=== PATIENT | female | born 1945 | race Caucasian/White ===

== ENCOUNTER 2023-12-20 14:00 | Outpatient (AMB) | payer MEDICARE, SELFPAY ==
[2023-12-20 14:08] VITALS: BP 138/60; PULSE 101; O2SAT 96; BMI 38.2
--- NOTE | 2023-12-20 14:08 | A.OFFVIS_ITS ---
Vital Signs 12/20/23 14:08 Height 5 ft 4 in Weight 222 lb 7.143 oz BMI 38.2 BP 138/60 Blood Pressure Location Rt brachial Position Sitting Pulse 101 H Pulse Source Pulse Oximeter Pulse Oximetry (%) 96 Oxygen Delivery Method Room Air Intake Visit Reasons: PSA Intake Note: New patient, externally referred by PCP at [facility], presents to office today for PsA. PCP Samira Thadisgala Joints affected: Hand,wrist and fingers are worse. She c/o of bilateral shoulder, knee and foot pain. Pain began approx: Patient has had this for many years but it has gotten worse over the last 2 years. Has tried:Orenzia infusions. 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 Baum 78yoF presents for transfer of care from [place]. Per patient, she was diagnosed with PsA with PsO about 10 years, and was being treated with Orencia infusion. --psoriasis arthritis and PsO --last infusion Apr 28, 2023 --right elbow small scaly patch --hands mild swelling and moderate tenderness to thumbs and medial wrists. soreness to DIPs, achilles and knees --no GI or Uveiitis --pending bilateral knee surgeries after A1C controlled. Returns in January to reassess. [facility] Medical History (Updated 12/20/23 @ 15:39 by Alana Craven [facility]) Psoriasis Screening examination for infectious disease Long-term use of immunosuppressant medication Lymph node abscess Hx of colonic polyp Post-menopausal Psoriatic arthritis Mixed hyperlipidemia Essential (primary) hypertension Type 2 diabetes mellitus with insulin therapy Surgical History (Updated 12/20/23 @ 14:24 by GATITO Everett) H/O: knee surgery History of appendectomy History of tonsillectomy History of partial hysterectomy Family History (Updated 12/20/23 @ 14:25 by GATITO Everett) Mother Cancer Father Abdominal aneurysm Social History (Updated 12/20/23 @ 14:26 by GATITO Everett) Alcohol intake: never Patient Tobacco Use Status: Never used Tobacco Review of Systems Const All systems reviewed & are unremarkable except as noted in HPI and below Physical Exam Vital Signs: Last Vital Signs Pulse 101 H 12/20/23 14:08 BP 138/60 12/20/23 14:08 Pulse Ox 96 12/20/23 14:08 Oxygen Delivery Method Room Air 12/20/23 14:08 BMI result Body Mass Index 38.2 APPEARANCE: Patient in no acute distress EYES no redness, normal EARS:? External ear normal. NOSE/SINUS:? Airflow through both nares, no nasal discharge, no bleeding THROAT:? Oral mucosa moist, no ulcerations NECK:? No thyromegaly or masses, no adenopathy, trachea midline. HEART:? Regular rhythm, S1-S2 heard, no murmurs, rubs or gallops. LUNG:? Clear to percussion and auscultation EXTREMITIES:? No edema, no calf tenderness, normal peripheral pulses. NEURO:? Oriented and alert x3.? No focal weakness.? Reflexes symmetric.? Gait normal. SKIN:? small scally patch right elbow, dry mild scaling to left ear, no scalp lesion. No objective signs of Raynaud's phenomenon. JOINT EXAM: Cervical Spine:.? Full range of motion without pain; no tenderness. Thoracic Spine:.? No scoliosis.? No tenderness on palpation. Lumbar Spine:.? Alignment normal.? Full range of motion without pain, no tenderness. Chest Wall:.? No tenderness, swelling, increased warmth or erythema. Hands:.? Decreased range of motion with tenderness and trace swelling to bila teral tumbs, 2nd and 3rd MCP no increased warmth or erythema. Able to curl fingers but decreased plumber assistant strength. Wrists:.?Range of motion with discomfort, with tenderness trace swelling but no increased warmth or erythema. Elbows:. Normal pain-free range of motion with tenderness but no swelling, increased warmth or erythema. soreness per patient Shoulders:.?? Reduced range of motion, lift hands above head with wincing and hesitation, mild weakness but no swelling, increased warmth or erythema. Hip bursa:.? mild to moderate tenderness; slow to rise from seated position Knees:.?? Normal range of motion with tenderness but no swelling, increased warmth or erythema.? There is no effusion or crepitation Ankles:.? Normal pain-free range of motion without tenderness, swelling, increased warmth or erythema. mild tenderness to achilles on palpation Feet:.? Normal pain-free range of motion without tenderness, swelling, increased warmth or erythema. Tender points:? No tenderness to digital palpation at the occiput, trapezius, second rib, lateral epicondyle, knees, greater trochanter and gluteal area bilaterally. ? Assessment & Plan Assessment & Plan (1) Psoriatic arthritis: Code(s): L40.50 - Arthropathic psoriasis, unspecified Category: Medical (2) Long-term use of immunosuppressant medication: Code(s): Z79.60 - MCC (current) use of unspecified immunomodulators and immunosuppressants Category: Medical (3) Psoriasis: Code(s): L40.9 - Psoriasis, unspecified Category: Medical Plan PsO/PsA: Patient with self-reported history of PsA here for management. She recently moved from [place] and had her last infusion Apr 2023 due to delayed referrals and Rheumatology unavailability. Per patient she was being treated with Orencia 750mg monthly infusions. However, she gave me note that she said she received from her former Rheum with IL-23 inscribed on the sticky note. I did put in the PA for Orencia. We will verify after receiving her records from [place]. She reports being very sore, with tenderness to joints on PE, since she has been without the medication for over 6 months. #Detention use: Patient knows to seek medical attention for infections and fevers. She denies known side effects on her medication for the PsA. Obtain labs for baseline f/u 2 months Spent 35 minutes reviewing history, evaluating patient and documenting. Orders: Orders C Reactive Protein Today L40.50 - Arthropathic psoriasis, unspecified, Z79.60 - termite treater helper (current) use of unspecified immunomodulators and immunosuppressants Complete Blood Count Auto Diff Today L40.50 - Arthropathic psoriasis, unspecified, Z79.60 - MCC (current) use of unspecified immunomodulators and immunosuppressants T Spot TB Today Z11.9 - Encounter for screening for infectious and parasitic diseases, unspecified Uric Acid Today L40.50 - Arthropathic psoriasis, unspecified, Z79.60 - termite treater helper (current) use of unspecified immunomodulators and immunosuppressants Erythrocyte Sedimentation Rate Today L40.50 - Arthropathic psoriasis, unspecified, Z79.60 - termite treater helper (current) use of unspecified immunomodulators and immunosuppressants Comprehensive Met. Panel Today L40.50 - Arthropathic psoriasis, unspecified, Z79.60 - termite treater helper (current) use of unspecified immunomodulators and immunosuppressants Immunoglobulins,IgG IgA IgM Today L40.50 - Arthropathic psoriasis, unspecified, Z79.60 - termite treater helper (current) use of unspecified immunomodulators and immunosuppressants Immunofixation Pnl, Serum Today L40.50 - Arthropathic psoriasis, unspecified, Z79.60 - termite treater helper (current) use of unspecified immunomodulators and immunosuppressants Hepatitis A,B,C Profile Today Z11.9 - Encounter for screening for infectious and parasitic diseases, unspecified, Z79.60 - MCC (current) use of uns pecified immunomodulators and immunosuppressants Protein Electrophoresis, Serum Today L40.50 - Arthropathic psoriasis, unspecified, Z79.60 - termite treater helper (current) use of unspecified immunomodulators and immunosuppressants HLA B27 Today L40.50 - Arthropathic psoriasis, unspecified, Z79.60 - MCC (current) use of unspecified immunomodulators and immunosuppressants Coding Level of Care Code New Pt Level 4 (41622) Diagnoses Psoriatic arthritis L40.50 Long-term use of immunosuppressant medication Z79.60 Psoriasis L40.9
== END 2023-12-20 15:14 | disposition home or self-care (01) ==
PROVIDERS: PCP Family Medicine; Visit Provider Nurse Practitioner Family
DX: L40.50 Arthropathic psoriasis, unspecified (principal); Z79.60 Long term (current) use of unspecified immunomodulators and immunosuppressants; L40.9 Psoriasis, unspecified
CPT/HCPCS: 99204

== ENCOUNTER → 2023-12-20 14:00 | Outpatient (BNVA) | payer MEDICARE, SELFPAY | PROVIDERS: PCP Family Medicine; Visit Provider Nurse Practitioner Family | DX: L40.50 Arthropathic psoriasis, unspecified (principal); L40.9 Psoriasis, unspecified; Z79.60 Long term (current) use of unspecified immunomodulators and immunosuppressants | CPT/HCPCS: 99202 ==

== ENCOUNTER 2024-03-01 14:19 | Outpatient (AMB) | payer MEDICARE, SELFPAY ==
[2024-03-01 14:31] VITALS: BP 128/72; PULSE 78; O2SAT 97
--- NOTE | 2024-03-01 14:31 | A.OFFVIS_ITS ---
Vital Signs 03/01/24 14:31 Weight 227 lb 4.745 oz BP 128/72 Blood Pressure Location Lt brachial Position Sitting Pulse 78 Pulse Source Pulse Oximeter Pulse Oximetry (%) 97 Oxygen Delivery Method Room Air Intake Visit Reasons: PSA Intake Note: Patient presents today for follow up on PSA, last seen on 12/20/23 by Alnaa Craven. Allergies codeine Adverse Reaction (Intermediate, Verified 03/01/24 14:35) Constipation Medication List - Last Reconciled 03/01/24 by Mannie Bah MD amlodipine 5 mg PO DAILY aspirin (Adult Aspirin Regimen) 81 mg PO DAILY atorvastatin 10 mg PO DAILY cholecalciferol (vitamin D3) (Vitamin D3) 25 mcg PO DAILY empagliflozin (Jardiance) 10 mg PO DAILY hydrochlorothiazide 25 mg PO DAILY insulin glargine (Lantus Solostar U-100 Insulin) 20 units subcut BID levothyroxine 100 mcg PO DAILY losartan 100 mg PO DAILY metformin 1,000 mg PO BID HPI Comments Details: 79-year-old female with psoriasis and psoriatic arthritis returns for follow-up. She finally received her Orencia infusions. She received 2 infusions so far. The 2nd infusion was today. She states that she feels about the same overall. Has not felt any improvement yet. She continues to have diffuse joint pains. Especially in her wrists and fingers, more on the right. She has bilateral knee osteoarthritis, she was told it was [id number] and she is scheduled for right knee replacement April 23. [facility] Medical History (Updated 03/01/24 @ 15:08 by Mannie Bah MD) Psoriasis Long-term use of immunosuppressant medication Lymph node abscess Hx of colonic polyp Post-menopausal Psoriatic arthritis Mixed hyperlipidemia Essential (primary) hypertension Type 2 diabetes mellitus with insulin therapy Surgical History H/O: knee surgery History of appendectomy History of tonsillectomy History of partial hysterectomy Family History Mother Cancer Father Abdominal aneurysm Social History Alcohol intake: never Patient Tobacco Use Status: Never used Tobacco Review of Systems [facility] Reports arthralgias, Reports joint swelling and Reports stiffness Skin/Breast Reports rash Physical Exam Vital Signs: Last Vital Signs Pulse 78 03/01/24 14:31 BP 128/72 03/01/24 14:31 Pulse Ox 97 03/01/24 14:31 Oxygen Delivery Method Room Air 03/01/24 14:31 Const General: cooperative, healthy appearing and comfortable Nutritional Appearance: obese morbidly obese Orientation/consciousness: patient oriented x3 Limitations: no limitations HEENT Head: Yes normocephalic and Yes atraumatic Mouth: moist mucous membranes Resp Effort & Inspection: normal respiratory effort and able to speak in complete s entences Auscultation: clear to auscultation bilaterally Skin General skin exam: no rashes or lesions noted Neuro General: patient oriented x3 Extrem Other: Bilateral wrist swelling, more prominent on the right Bilateral puffy fingers Bilateral wrist pain with flexion-extension 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 She received 2 infusions of Orencia so far. She gets 750 mg every 28 days. She continues to have active synovitis on exam. I think patient is getting a suboptimal dose. She weighs more than 100 kg and should get 1000 mg every 4 weeks Increase Orencia dose. 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 Patient to skip the March dose for the Orencia. Her last Orencia dose before surgery is today. She has a postop follow-up with her surgeon 05/09. If wound is healing reasonably well with no signs of infection on postop check advised patient to schedule her Orencia infusion as soon as she can Plan I spent 27 minutes reviewing patient's chart, evaluating patient, ordering diagn ostic workup, counseling patient and documenting in the chart Coding Level of Care Code Est Pt Level 4 (87424) Diagnoses Psoriatic arthritis L40.50 Long-term use of immunosuppressant medication Z79.60 Bilateral primary osteoarthritis of knee M17.0
== END 2024-03-01 15:06 | disposition home or self-care (01) ==
PROVIDERS: PCP Family Medicine; Visit Provider Student in an Organized Health Care Education/Training Program
DX: L40.50 Arthropathic psoriasis, unspecified (principal); Z79.60 Long term (current) use of unspecified immunomodulators and immunosuppressants; M17.0 Bilateral primary osteoarthritis of knee
CPT/HCPCS: 99214

== ENCOUNTER → 2024-03-01 14:19 | Outpatient (BNVA) | payer MEDICARE, SELFPAY | PROVIDERS: PCP Family Medicine; Visit Provider Student in an Organized Health Care Education/Training Program | DX: L40.50 Arthropathic psoriasis, unspecified (principal); M17.0 Bilateral primary osteoarthritis of knee; Z79.60 Long term (current) use of unspecified immunomodulators and immunosuppressants | CPT/HCPCS: 99212 ==

== ENCOUNTER 2024-06-20 10:17 | Outpatient (AMB) | payer MEDICARE, SELFPAY ==
--- NOTE | 2024-06-20 10:25 | MHC.OFFVIS ---
Vital Signs 06/20/24 10:32 Height 5 ft 4 in Weight 226 lb 3.108 oz BMI 38.8 BP 100/50 L Blood Pressure Location Rt brachial Position Sitting Respiration 16 Pulse 86 Pulse Source Pulse Oximeter Pulse Oximetry (%) 95 Oxygen Delivery Method Room Air Intake Visit Reasons: PsA Intake Note: Patient presents for PsA. Allergies codeine Adverse Reaction (Intermediate, Verified 06/20/24 10:30) Constipation Medication List - Last Reconciled 06/20/24 by Mannie Bah MD amlodipine 5 mg PO DAILY aspirin (Adult Aspirin Regimen) 81 mg PO DAILY atorvastatin 10 mg PO DAILY cholecalciferol (vitamin D3) (Vitamin D3) 25 mcg PO DAILY empagliflozin (Jardiance) 10 mg PO DAILY hydrochlorothiazide 25 mg PO DAILY insulin glargine (Lantus Solostar U-100 Insulin) 20 units subcut BID levothyroxine 100 mcg PO DAILY losartan 100 mg PO DAILY metformin 1,000 mg PO BID HPI Comments Details: 79-year-old female with psoriasis and psoriatic arthritis returns for follow-up. She remains on Orencia infusions. We increase her Orencia dose to 1000 mg. She received the increased of Orencia once, this was earlier this month. She has not noticed much of a difference. She is s/p right knee replacement. She has recovered well so far. Still working with physical therapy. She states that she continues to have arthritic pains in different joints including her hands. Her hands are weak, gets stiff and intermittently swell up. COUNTS INCLUDE 234 BEDS AT THE [facility] Medical History Psoriasis Long-term use of immunosuppressant medication Lymph node abscess Hx of colonic polyp Post-menopausal Psoriatic arthritis Mixed hyperlipidemia Essential (primary) hypertension Type 2 diabetes mellitus with insulin therapy Surgical History H/O: knee surgery History of appendectomy History of tonsillectomy History of partial hysterectomy Family History Mother Cancer Father Abdominal aneurysm Social History Alcohol intake: never Patient Tobacco Use Status: Never used Tobacco Review of Systems [facility] Reports arthralgias, Reports joint swelling and Reports stiffness Physical Exam Vital Signs: Last Vital Signs Pulse 86 12/18/24 10:32 Resp 16 06/20/24 10:32 BP 100/50 L 06/20/24 10:32 Pulse Ox 95 06/20/24 10:32 Oxygen Delivery Method Room Air 06/20/24 10:32 BMI result Body Mass Index 38.8 Const General: cooperative, healthy appearing and comfortable Nutritional Appearance: obese morbidly obese Orientation/consciousness: patient oriented x3 Limitations: no limitations HEENT Head: Yes normocephalic and Yes atraumatic Mouth: moist mucous membranes Resp Effort & Inspection: normal respiratory effort and able to speak in complete sentences Auscultation: clear to auscultation bilaterally Skin General skin exam: no rashes or lesions noted Neuro General: patient oriented x3 Extrem Other: No wrist swelling bilaterally Mild wrist tenderness bilaterally and pain with full flexion and extension Multiple tender MCPs, PIP is and DIPs, without much swelling Normal range of motion of shoulders Normal range of motion of elbows Able to bend her left knee almost fully S/p right knee replacement No ankle swelling or tenderness melena Assessment & Plan Assessment & Plan (1) Psoriatic arthritis: Comment: on orencia infusions since 2013 Code(s): L40.50 - Arthropathic psoriasis, unspecified Category: Medical Plan: This is a 79-year-old female with psoriasis and psoriatic arthritis who presents for follow-up. She remains on Orencia infusions. Last dose earlier this month we increased her dose to 1000 mg. On exam I do not see active synovitis. Patient however continues to be achy which I believe is due to generalized osteoarthritis. 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 of unspecified immunomodulators and immunosuppressants Category: Medical Plan: Patient has been on Orencia for about 10 years without any significant side effects (3) Bilateral primary osteoarthritis of knee: Code(s): M17.0 - Bilateral primary osteoarthritis of knee Category: Medical Plan: S/p right knee replacement, states that she may get her left knee replaced in the coming few months (4) Osteoarthritis of hands, bilateral: Code(s): M19.041 - Primary osteoarthritis, right hand; M19.042 - Primary osteoarthritis, left hand Category: Medical Qualifiers: Osteoarthritis type: primary Qualified Code(s): M19.041 - Primary osteoarthritis, right hand; M19.042 - Primary osteoarthritis, left hand Plan: Discussed management of bilateral hand osteoarthritis. Can use Tylenol Arthritis up to 2500 mg daily, use Voltaren gel on affected joints up to 4 times a day, can use NSAIDs very sparingly We discussed OT referral, patient is not interested at this time Plan I spent 27 minutes reviewing patient's chart, evaluating patient, ordering diagnostic workup, counseling patient and documenting in the chart Orders: Orders Complete Blood Count Auto Diff 4 Months L40.50 - Arthropathic psoriasis, unspecified, Z79.60 - group home (current) use of unspecified immunomodulators and immunosuppressants Comprehensive Met. 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
[2024-06-20 10:32] VITALS: BP 100/50; PULSE 86; RESP 16; O2SAT 95; BMI 38.8
== END 2024-06-20 10:57 | disposition home or self-care (01) ==
LOC: HO.RHE 10:17
PROVIDERS: PCP Family Medicine; Visit Provider Student in an Organized Health Care Education/Training Program
DX: L40.50 Arthropathic psoriasis, unspecified (principal); Z79.60 Long term (current) use of unspecified immunomodulators and immunosuppressants; M17.0 Bilateral primary osteoarthritis of knee; M19.041 Primary osteoarthritis, right hand; M19.042 Primary osteoarthritis, left hand
CPT/HCPCS: 99214; G2211

== ENCOUNTER → 2024-06-20 10:17 | Outpatient (BNVA) | payer MEDICARE, SELFPAY | PROVIDERS: PCP Family Medicine; Visit Provider Student in an Organized Health Care Education/Training Program | DX: L40.50 Arthropathic psoriasis, unspecified (principal); M17.0 Bilateral primary osteoarthritis of knee; M19.041 Primary osteoarthritis, right hand; M19.042 Primary osteoarthritis, left hand; Z79.60 Long term (current) use of unspecified immunomodulators and immunosuppressants | CPT/HCPCS: 99212 ==

== ENCOUNTER 2024-10-22 11:21 | Outpatient (REF) | payer MEDICARE, SELFPAY ==
--- OUTSIDE RECORDS SUMMARY | 2024-10-22 11:24 | XMS_ITS | Encounter Summary ---
Author Organization [facility] [place] [address] Care Team Providers Care Regroover Name Role Phone Robert Shala Primary Care Provider [phone] Encounter Details Date Type Department Care Team (Late st Contact Info) Description 04/06/2022 Hospital Encounter TH HISTORIC ENCOUNTERS EASTERN CONVERSION ONLY Sophia Balderas MD [address] [facility] 2nd [place] [address] Social History Tobacco Use Types Packs/Day Years Used Date Smoking Tobacco: Never Assessed Housing Instability Answer Date Recorde d Are you worried that in the next 2 months you may not have stable housing? No 09/11/2024 Food Access & Nutrition Answer Date Rec orded Do you have access to a vari ety of food including fruits and vegetables? Yes 09/11/2024 Access to Healthcare Answer Date Record ed Within the last 3 months, ho w many times did you visit the emergency department for your medical care? 0 09/11/2024 Health Literacy Answer Date Recorded How often do you need to hav e someone help you when you read instructions, pamphlets, or other written material from your doctor or pharmacy? Never 09/11/2024 Caregiver: How often do you need to have someone help you when you read instructions, pamphlets, or other written material from your doctor or pharmacy? Not on file 09/11/2024 Financial Risk Answer Date Recorded How hard is it for you to pa y for the very basics like food, housing, medical care, and air conditioning / heating? Not very hard 09/11/2024 Transportation Answer Date Recorded Has the lack of transportati on kept you from meetings, work, or from getting things needed for daily living? No Has the lack of transportati on kept you from medical appointments or from getting medications? No 09/11/2024 Social Isolation Answer Date Recorded How often do you feel lonely or isolated from th ose around you? Never 09/11/2024 Food Risk Answer Date Recorded Within the past 12 months we worried whether our food would run out before we got money to buy more. Never true 09/11/2024 Within the past 12 months th e food we bought just didn't last and we didn't have money to get more. Never true 09/11/2024 Dependent Care Answer Date Recorded Do you need help finding or paying for care for your loved ones. For example, director maternal child or elderly care for an older adult? No 09/11/2024 Education Answer Date Recorded Do you think completing more education or training, like finishing a GED, going to college, or learning a trade, would be helpful for you? N/A 09/11/2024 Employment and Income Answer Date Recor ded During the last four weeks, have you been actively looking for work? No 09/11/2024 Living Situation Answer Date Recorded What is your living situation? 0 09/11/2024 Interpersonal Safety Answer Date Record ed Physical Abuse 07/25/2024 Verbal Abuse 07/25/2024 Comments Unknown Sex and Gender Information Value Date Recorded Sex Assigned at Female 06/09/2022 11:33 AM EST Legal Sex Female 12:39 PM EDT Gender Identity Female 06/09/2022 11:33 AM EST Sexual Orientation Not on file Travel History Travel Start Travel End [place] 09/16/2024 10/17/2024 COVID-19 Exposure Response Date Recorded In the last 10 days, have yo u been in contact with someone who was confirmed or suspected to have Coronavirus/COVID-19? No / Unsure 12/23/2022 8:08 AM EDT documented as of this encounter Plan of Treatment Upcoming Encounters Date Type Department Care Team (Late st Contact Info) Description 11/29/2024 8:30 AM EDT Appointment [facility] [address] [place] [phone] Richelle Pritchard MD 175 [facility] [address] [place] [address] 12/11/2024 1:00 PM EDT Office Visit Orthopedic Surgery [place] [address] [phone] Cesar Le DPM [address] [address] 12/19/2024 7:45 AM EDT Office Visit Adult Medicine [address] [phone] Danny Dobson MD [address] [place] [address] 02/22/2025 10:20 AM EDT Appointment Radiology Department - [address] [phone] 04/18/2025 9:30 AM EDT Office Visit Orthopedic [place] [address] [phone] Quinton Saleem MD [address] [id number] documented as of this encounter Goals Goal [...] on filedocumented in this encounter Care Teams Regroover Relationship Specialty Start Date End Date Shala Jones DO [address] [place] [address] PCP - General Internal Medicine 03/25/22 04/19/22 documented as of this encounter
--- OUTSIDE RECORDS SUMMARY | 2024-10-22 11:25 | XMS_ITS | Encounter Summary ---
Author Organization [facility] Address [address] [place] [address] Care Team Providers Care Msw Name Role Phone Danny Dobson MD Primary Care Provider [phone] Reason for Visit * Reason Comments Chest Pain Rt sided chest pain Encounter Details Date Type Department Care Team (Late st Contact Info) Description 10/17/2024 5:57 PM EDT - 10/18/2024 3:53 AM EDT Emergency [facility] Emergency [address] [place] [address] Chest pain, unspecified type (Primary Dx) Discharge Disposition: Home or Self Care Social History Tobacco Use Types Packs/Day Years Used Date Smoking Tobacco: Never Smokeless Tobacco: Never Alcohol Use Standard Drinks/Week Comments Never 0 (1 standard drink = 0.6 oz pur e alcohol) rarely Housing Instability Answer Date Recorde d Are [...] your loved ones. For example, early childhood coordinator or elderly care for an older adult? [...] Physical Abuse 07/25/2024 Verbal Abuse 07/25/2024 Comments No Sex and Gender Information Value Date Recorded Sex Assigned at Female 06/09/2022 11:33 AM EST Legal Sex Female 12:39 PM EDT Gender Identity Female 06/09/2022 11:33 AM EST Sexual Orientation Not on file Travel History Travel Start Travel End [place] 09/16/2024 10/17/2024 documented as of this encounter Last Filed Vital Signs Vital Sign Reading Time Taken Comments Blood Pressure 141/72 10/17/2024 8:19 PM EDT Pulse 75 10/17/2024 8:19 PM EDT Temperature 36.4 ??C (97.5 ??F) 10/17/2024 8:19 PM ED T Respiratory Rate 20 10/17/2024 8:19 PM EDT Oxygen Saturation 96% 10/17/2024 8:19 PM EDT Inhaled Oxygen Concentration - - Weight 98 kg (216 lb) 10/17/2024 5:25 PM EDT Height 162.6 cm (5' 4 ) 10/17/2024 5:25 PM EDT Body Mass Index 37.08 10/17/2024 5:25 PM EDT documented in this encounter Discharge Instructions * Discharge Instructions* SHAREE Mc - 10/18/2024 2:01 AM EDT I am reassured that your discomfort is reproducible, this points to more likely a musculoskeletal origin. For baseline pain control I recommend that you continue taking Tylenol you can take up to 1000 mg every 6 hours. Do not exceed more than 4000 mg in a 24-hour period. May alternate with ibuprofen 600 mg every 6 hours. I recommend gentle stretching as tolerated, may alternate between ice and heat therapy to see if this is helpful with your discomfort. I strongly recommend following up with your primary care provider. Low threshold to return to the emergency department for reevaluation should you experience any new or worsening symptoms of concern. * Attachments The following attachments cannot be sent through Care Everywhere. * Chest Pain: Musculoskeletal (Belarusian) documented in this encounter Medications at Time of Discharge abatacept (ORENCIA) 125 mg/mL injection Inject 8 mL (1,000 mg total) under the skin every 30 (thirty) days. acetaminophen (TYLENOL) 500 mg tablet Take 2 tablets (1,000 mg total) by mouth. 04/24/2024 amLODIPine (NORVASC) 5 mg tablet Take 1 tablet (5 mg total) by mouth 1 (one) time each day. 90 each 1 09/18/2024 aspirin 81 mg chewable tablet Chew 1 tablet (81 mg total). 04/24/2024 atorvastatin (LIPITOR) 10 mg tablet Take 1 tablet (10 mg total) by mouth 1 (one) time each day. 90 tablet 1 09/18/2024 bisacodyL (DULCOLAX) 5 mg EC tablet Take 2 tablets by mouth right before beginning bowel prep. See instructions provided by the office 2 tablet 07/11/2024 blood sugar diagnostic (True Metrix Glucose Test Strip) test strip Use as instructed 100 each 1 09/25/2024 blood-glucose meter kit Glucose Testing Supplies ( meter, test strips, lancing device, control solution, lancets, meter battery) TEST TWICE A DAY 01/20/2023 cholecalciferol , vitamin D3, 250 mcg (10,000 unit) tablet Take 250 mcg by mouth. diabetic supplies, [facility] [place] Glucose Testing Supplies ( meter, test strips, lancing device, control solution, lancets, meter battery) TEST TWICE A DAY 1 each 3 01/20/2023 empagliflozin (JARDIANCE) 25 mg tablet Take 1 tablet (25 mg total) by mouth 1 (one) time each day in the morning. 90 tablet 1 09/18/2024 hydroCHLOROthia zide (HYDRODIURIL) 25 mg tablet Take 1 tablet (25 mg total) by mouth 1 (one) time each day. 90 each 1 09/18/2024 ibuprofen (ADVIL,MOTRIN) 600 mg tablet Take 1 tablet (600 mg total) by mouth every 6 (six) hours if needed for mild pain or moderate pain for up to 10 days. 30 tablet 10/18/2024 5 insulin glargine (Lantus U-100 Insulin) 100 unit/mL injection Inject 30 Units under the skin at bedtime. 30 mL 1 09/18/2024 6 insulin syringe-needle U-100 1 mL 31 gauge x 5/16 syringe USE TO INJECT INSULIN ONCE DAILY DIRECTED 100 each 1 09/18/2024 levothyroxine (SYNTHROID, LEVOTHROID) 100 mcg tablet Take 1 tablet (100 mcg total) by mouth 1 (one) time each day before breakfast. 90 each 09/18/2024 5 losartan (COZAAR) 100 mg tablet Take 1 tablet (100 mg total) by mouth 1 (one) time each day. 90 each 1 09/18/2024 metFORMIN (GLUCOPHAGE) 1,000 mg tablet Take 1 tablet (1,000 mg total) by mouth 2 (two) times a day with meals. 180 tablet 1 09/18/2024 pen needle, diabetic (BD Ultra-Fine Treasure Pen Needle) 32 gauge x 5/32 needle Insulin administration 100 each 1 07/20/2024 polyethylene glycol (Golytely) 236-22.74-6.74 -5.86 gram solution Take 4L by mouth once for one dose. May substitue any PEG. Starting at 6PM the night before your procedure drink 1 8oz glasses at your own pace until you complete half of the gallon. Finish 2nd half of the gallon 5 hours before your procedure. 4000 mL 07/11/2024 documented as of this encounter Ordered Prescriptions Prescription Sig Dispense Quantity Refills Last Filled Start Date End Date ibuprofen (ADVIL,MOTRIN) 600 mg tablet Take 1 tablet (600 mg total) by mouth every 6 (six) hours if needed for mild pain or moderate pain for up to 10 days. 30 tablet 10/18/2024 documented in this encounter Discharge Disposition Disposition Code Departure Means Destination Comment s Home or Self Care documented in this encounter Progress Notes * Danica Bruce RN - 10/17/2024 5:23 PM EDT Pt sts 2 weeks ago went to [place]. Reports came back , developed rt sided chest pain , intermittent , with sob . Went to urgent care , they saw something on my lung on the right side .. They said Ineeded a ct scan documented in this encounter Plan of Treatment Upcoming Encounters Date Type Department Care Team (Late st Contact Info) Description 11/29/2024 8:30 AM EDT Appointment [facility] Endoscopy [address] [place] [phone] Richelle Pritchard MD 175 [facility] [address] [place] [address] 12/11/2024 1:00 PM EDT Office Visit Orthopedic Surgery - [place] [address] [facility] [address] [place] [phone] Cesar Le DPM [address] [address] 12/19/2024 7:45 AM EDT Office Visit Adult Medicine [place] - [address] [phone] Danny Dobson MD [address] [place], [place] 02/22/2025 10:20 AM EDT Appointment Radiology Department - [address] [phone] 04/18/2025 9:30 AM EDT Office Visit Orthopedic Surgery - [place] [id number] [phone] Quinton Saleem MD [address] [address] documented as of this encounter Goals Goal [...] independent and compliant w/ final HEP of C strengthening. (Met). documented as of this encounter Procedures Procedure Name Priority Date/Time Associated Diagnosis Comments US ABDOMEN LIMITED STAT 10/18/2024 12 :43 AM EDT ECG ANNOTATED 10/18/2024 POCT GLUCOSE BLOOD Routine 10/17/2024 10 :[address] ANGIO CHEST WO AND/OR W CONTRAST STAT 10/17/2024 9:36 PM EDT Chest pain, unspecified type ECG 12-LEAD STAT 10/17/2024 8:14 PM EDT TROPONIN I HIGH SENSITIVITY STAT 10/17/2024 8:14 PM EDT TROPONIN I HIGH SENSITIVITY STAT 10/17/2024 7:13 PM EDT CBC WITH AUTO DIFFERENTIAL STAT 10/17/2024 7:13 PM EDT CBC AND DIFFERENTIAL STAT 10/17/2024 7:13 PM EDT B-TYPE NATRIURETIC PEPTIDE STAT 10/17/2024 7:13 PM EDT MAGNESIUM STAT 10/17/2024 7:13 PM EDT LIPASE STAT 10/17/2024 7:13 PM EDT COMPREHENSIVE METABOLIC PANEL STAT 10/17/2024 7:13 PM EDT POCT GLUCOSE BLOOD Routine 10/17/2024 6: 47 PM EDT XR CHEST 2 VIEWS STAT 10/17/2024 6:24 PM EDT ECG 12-LEAD STAT 10/17/2024 5:32 PM EDT documented in this encounter Results * US Abdomen Limited (10/18/2024 12:43 AM EDT) Anatomical Region Laterality Modality Body Ultrasound 10/18/2024 1:24 AM EDT Impressions 10/18/2024 1:24 AM EDT No acute findings. Right renal mass versus column of Ricki (normal parenchyma) in the interpolar region measuring 3.4 x 3.1 x 3.[address] or MRI of the kidneys for further evaluation. This document has been electronically signed by: Kavitha Hallman MD on 10/18/2024 01:24:11 Narrative 10/18/2024 1:24 AM EDT INDICATION: RUQ gallbladder US US abdomen limited Comparison: CT - CT ANGIO CHEST WO AND OR W CONTRAST - 10/17/24 21:36 EDT Findings: The visualized pancreas is normal. The aorta and inferior vena cava are normal caliber. The liver is normal in size and echotexture. There is no intrahepatic bile duct dilatation. The common duct is 3 mm in diameter. The gallbladder is normal. There is no sonographic House sign. The main portal vein is antegrade. The right kidney is 8.7 cm in length. Right renal mass versus column of Ricki in the interpolar region measuring 3.4 x 3.1 x 3.4 cm. No ascites. Procedure Note Kavitha Hallman MD - 10/18/2024 INDICATION: RUQ gallbladder US US abdomen limited Comparison: CT - CT ANGIO CHEST WO AND OR W CONTRAST - 10/17/24 21:36 EDT Findings: The visualized pancreas is normal. The aorta and inferior vena cava are normal caliber. The liver is normal in size and echotexture. There is no intrahepatic bile duct dilatation. The common duct is 3 mm in diameter. The gallbladder is normal. There is no sonographic House sign. The main portal vein is antegrade. The right kidney is 8.7 cm in length. Right renal mass versus column of Ricki in the interpolar region measuring 3.4 x 3.1 x 3.4 cm. No ascites. IMPRESSION: No acute findings. Right renal mass versus column of Ricki (normal parenchyma) in the interpolar region measuring 3.4 x 3.1 x 3.[address] or MRI of the kidneys for further evaluation. This document has been electronically signed by: Kavitha Hallman MD on 10/18/2024 01:24:11 us Lucina TOLLIVER IMG US PROCEDURES Final Result * ECG-Annotated (10/18/2024) us Provider Onbase ECG ORDERABLES Final Result * (ABNORMAL) POCT Glucose, blood (10/17/2024 10:46 PM EDT) Glucose POCT 191(H) 70 - 100 mg/dL 10/17/2024 10:48 PM EDT [facility] Blood Capillary blood specimen / Unknown 10/17/2024 10:46 PM EDT 10/17/2024 10:49 PM EDT us Generic Provider Poct LAB POINT OF CARE TEST DOCKED DEVICE UNSOLICITED RESULTS Final Result [facility] [address] [place] [address], [place] [phone] * CT Angio Chest wo and/or w Contrast (10/17/2024 9:36 PM EDT) Anatomical Region Laterality Modality Body Computed Tomogra phy 10/17/2024 10:0 7 PM EDT Impressions 10/17/2024 10:07 PM EDT 1. No acute cardiopulmonary findings. No pulmonary embolus. This document has been electronically signed by: Kavitha Hallman MD on 10/17/2024 22:07:58 Narrative 10/17/2024 10:07 PM EDT INDICATION: PE suspected, high prob CT angiography chest with contrast. 3D Postprocessing. Comparison: None Findings: The heart size is normal. RV/LV ratio is normal. Aberrant right subclavian artery. Aortic and coronary atherosclerosis. No aneurysm. No acute pulmonary embolus. Small hiatal hernia. Atrophic left thyroid lobe. Right thyroid gland is not visualized. No enlarged mediastinal or hilar lymph nodes. Mild bibasilar atelectasis. No pleural effusion or pneumothorax. No acute findings in the visualized upper abdomen. Degenerative changes of the spine. Procedure Note Kavitha Hallman MD - 10/17/2024 INDICATION: PE suspected, high prob CT angiography chest with contrast. 3D Postprocessing. Comparison: None Findings: The heart size is normal. RV/LV ratio is normal. Aberrant right subclavian artery. Aortic and coronary atherosclerosis.No aneurysm. No acute pulmonary embolus. Small hiatal hernia. Atrophic left thyroid lobe. Right thyroid gland is not visualized. No enlarged mediastinal or hilar lymph nodes. Mild bibasilar atelectasis. No pleural effusion or pneumothorax. No acute findings in the visualized upper abdomen. Degenerative changes of the spine. IMPRESSION: 1. No acute cardiopulmonary findings. No pulmonary embolus. This document has been electronically signed by: Kavitha Hallman MD on 10/17/2024 22:07:[address] PROCEDURES Final Result * ECG 12 lead (10/17/2024 8:14 PM EDT) [facility] Ventricular Rate ECG 74 BPM GEMUSE Atrial Rate 74 BPM GEMUSE P-R Interval 162 ms GEMUSE QRS Duration 94 ms GEMUSE Q-T Interval 412 ms GEMUSE QTc 457 ms GEMUSE P Wave [place]berry 32 degrees GEMUSE R [place] -49 degrees GEMUSE T [place] 43 degrees GEMUSE ECG Interpretation Normal sinus rhythm Left anterior fascicular block Abnormal ECG When compared with ECG of 17-OCT-2024 17:32, No significant change was found Confirmed by DONNA MARTIN ([id number]) on 10/18/2024 6:22:31 PM GEMUSE 10/17/2024 8:14 PM EDT 10/18/2024 6:22 PM EDT Marlon Whitaker MD ECG ORDERABLES Final Resul t GEMUSE * Troponin I high sensitivity (10/17/2024 8:14 PM EDT) [facility] High Sensitivity Troponin I 7 <=54 ng/L LAB CHEMISTRY METHOD 10/17/2024 9:02 PM EDT [facility] Blood Venous blood specimen / Unknown Venipuncture / Unknown 10/17/2024 8:14 PM EDT 10/17/2024 8:23 PM EDT Narrative [facility] - 10/17/2024 9:02 PM EDT High levels of biotin in samples may falsely decrease hsTroponin values. ??Use caution when interpreting hsTroponin results in patients taking biotin who exhibit renal impairment (eGFR <60) or in patients taking more than 20 mg/day of biotin. us Marlon Whitaker MD LAB BLOOD ORDERABLES Final Result [facility] [address] [place] [address], [place] [phone] * (ABNORMAL) CBC auto differential (10/17/2024 7:13 PM EDT) [facility] WBC 12.9(H) 4.8 - 10.8 K/mcL LAB HEMETOLOGY METHOD 10/17/2024 7:51 PM EDT [facility] RBC 5.10(H) 3.80 - 4.80 M/mcL LAB HEMETOLOGY METHOD 10/17/2024 7:51 PM EDT [facility] Hemoglobin 15.9 11.5 - 16.0 g/dL LAB HEMETOLOGY METHOD 10/17/2024 7:51 PM EDT [facility] Hematocrit 47.7(H) 35.0 - 47.0 % LAB HEMETOLOGY METHOD 10/17/2024 7:51 PM EDT [facility] MCV 93.3 79.0 - 98.0 FL LAB HEMETOLOGY METHOD 10/17/2024 7:51 PM EDT [facility] MCH 31.1 27.0 - 32.0 pcg LAB HEMETOLOGY METHOD 10/17/2024 7:51 PM EDT [facility] MCHC 33.3 32.0 - 37.0 g/dL LAB HEMETOLOGY METHOD 10/17/2024 7:51 PM EDT [facility] RDW 14.5 11.0 - 15.0 % LAB HEMETOLOGY METHOD 10/17/2024 7:51 PM EDT [facility] Platelets 309 130 - 400 K/mcL LAB [facility]EMETOLOGY [facility] MPV 11.2(H) 7.0 - 11.0 FL LAB HEMETOLOGY METHOD 10/17/2024 7[facility] NRBC 0.0 <1.0 % LAB HEMETOLOGY METHOD 10/17/2024 7:[facility] NRBC Absolute 0.00 <0.10 K/mcL LAB HEMETOLOGY METHOD 10/17/2024 7:[facility] Neutrophils Relative 73.6 % LAB HEMETOLOGY METHOD 10/17/2024 7:51 PM [facility] Lymphocytes Relative 18.8 % LAB HEMETOLOGY METHOD 10/17/2024 7:51 PM [facility] Monocytes Relative 6.3 % LAB HEMETOLOGY METHOD 10/17/2024 7:51 PM [facility] Eosinophils Relative 0.4 % LAB HEMETOLOGY METHOD 10/17/2024 7:51 PM [facility] Basophils Relative 0.4 % LAB HEMETOLOGY METHOD 10/17/2024 7:51 PM [facility] Immature Granulocytes Relative 0.5 % LAB HEMETOLOGY METHOD 10/17/2024 7:51 PM [facility] Neutrophils Absolute 9.51(H) 1.50 - 7.00 K/mcL LAB HEMETOLOGY METHOD 10/17/2024 7:[facility] Lymphocytes Absolute 2.43 1.00 - 5.00 K/mcL LAB HEMETOLOGY METHOD 10/17/2024 7:51 PM [facility] Monocytes Absolute 0.82 0.20 - 1.00 K/mcL LAB HEMETOLOGY METHOD 10/17/2024 7:51 PM EDT [facility] Eosinophils Absolute 0.05 0.00 - 0.50 K/[facility] LAB HEMETOLOGY METHOD 10/17/2024 7:51 PM EDT [facility] Basophils Absolute 0.05 0.00 - 0.20 K/[facility] LAB HEMETOLOGY METHOD 10/17/2024 7:51 PM EDT [facility] Immature Granulocytes Absolute 0.06(H) 0.00 - 0.03 K/[facility] LAB HEMETOLOGY METHOD 10/17/2024 7:51 PM EDT [facility] Blood Venous blood specimen / Unknown Venipuncture / Unknown 10/17/2024 7:13 PM EDT 10/17/2024 7:41 PM EDT Marlon Whitaker MD LAB BLOOD ORDERABLES Final Result Performing Organization Address City/[facility]/ZIP Co de Phone Number [facility] [address] [place] [address], [place] [phone] * B-type natriuretic peptide (10/17/2024 7:13 PM EDT) Pathologist [facility] BNP 20 <=100 pcg/mL LAB CHEMISTRY METHOD 10/17/2024 8:21 PM EDT [facility] Blood Venous blood specimen / Unknown Venipuncture / Unknown 10/17/2024 7:13 PM EDT 10/17/2024 7:41 PM EDT Marlon Whitaker MD LAB BLOOD ORDERABLES Final Result Performing Organization Address [facility]/ZIP Co de Phone Number [facility] [address] [place] [address], [place] [phone] * Magnesium (10/17/2024 7:13 PM EDT) Magnesium 2.6 1.9 - 2.6 mg/dL LAB CHEMISTRY METHOD 10/17/2024 8:19 PM EDT [facility] Blood Venous blood specimen / Unknown Venipuncture / Unknown 10/17/2024 7:13 PM EDT 10/17/2024 7:41 PM EDT Marlon Whitaker MD LAB BLOOD ORDERABLES Final Result Performing Organization Address [facility]/ZIP Co de Phone Number [facility] [address] [place] [address], [place] [phone] * Lipase (10/17/2024 7:13 PM EDT) [facility] Lipase 22 13 - 75 unit/L LAB CHEMISTRY METHOD 10/17/2024 8:19 PM EDT [facility] Blood Venous blood specimen / Unknown Venipuncture / Unknown 10/17/2024 7:13 PM EDT 10/17/2024 7:41 PM EDT Marlon Whitaker MD LAB BLOOD ORDERABLES Final Result Performing Organization Address [facility] de Phone Number [facility] [address] [place] [address], [place] [phone] * (ABNORMAL) Comprehensive metabolic panel (10/17/2024 7:13 PM EDT) [facility] Sodium 134 133 - 145 mmol/L LAB CHEMISTRY METHOD 10/17/2024 8:22 PM EDT [facility] Potassium 3.9 3.5 - 5.5 mmol/L LAB CHEMISTRY METHOD 10/17/2024 8:22 PM EDT [facility] Chloride 100 96 - 110 mmol/L LAB CHEMISTRY METHOD 10/17/2024 8:22 PM EDT [facility] CO2 27 21 - 32 mmol/L LAB CHEMISTRY METHOD 10/17/2024 8:22 PM EDT [facility] Anion Gap 7 3 - 11 LAB CHEMISTRY METHOD 10/17/2024 8:22 PM [facility] Glucose 190(H) 70 - 100 mg/dL LAB CHEMISTRY METHOD 10/17/2024 8:22 PM [facility] BUN 26(H) 5 - 25 mg/dL LAB CHEMISTRY METHOD 10/17/2024 8:22 PM [facility] Creatinine 0.82 0.50 - 1.10 mg/dL LAB CHEMISTRY METHOD 10/17/2024 8:22 PM [facility] eGFR 73 >=60 mL/min/1. 73m2 LAB CHEMISTRY METHOD 10/17/2024 8:22 PM [facility] Comment:Calculation based on the??Chronic Kidney Disease Epidemiology Collaboration (CKD-EPI) equation refit??without adjustment for race. BUN/Creatinine Ratio 31.7 LAB CHEMISTRY METHOD 10/17/2024 8:22 PM [facility] Calcium 9.4 8.5 - 10.5 mg/dL LAB CHEMISTRY METHOD 10/17/2024 8:22 PM [facility] AST (SGOT) 13 10 - 42 unit/L LAB CHEMISTRY METHOD 10/17/2024 8:22 PM [facility] ALT (SGPT) 26 10 - 60 unit/L LAB CHEMISTRY METHOD 10/17/2024 8:22 PM [facility] Alkaline Phosphatase 72 42 - 121 unit/L LAB CHEMISTRY METHOD 10/17/2024 8:22 PM [facility] Total Protein 7.6 6.0 - 8.0 g/dL LAB CHEMISTRY METHOD 10/17/2024 8:22 PM [facility] Albumin 4.4 3.2 - 5.0 g/dL LAB CHEMISTRY METHOD 10/17/2024 8:22 PM [facility] Total Bilirubin 0.7 0.0 - 1.4 mg/dL LAB CHEMISTRY METHOD 10/17/2024 8:22 PM EDT [facility] Blood Venous blood specimen / Unknown Venipuncture / Unknown 10/17/2024 7:13 PM EDT 10/17/2024 7:41 PM EDT Marlon Whitaker MD LAB BLOOD ORDERABLES Final Result Performing Organization Address [facility] de Phone Number [facility] [address] [place] [address], [place] [phone] * Troponin I high sensitivity (10/17/2024 7:13 PM EDT) [facility] High Sensitivity Troponin I 7 <=54 ng/L LAB CHEMISTRY METHOD 10/17/2024 8:19 PM EDT [facility] Blood Venous blood specimen / Unknown Venipuncture / Unknown 10/17/2024 7:13 PM EDT 10/17/2024 7:41 PM EDT Narrative [facility] - 10/17/2024 8:19 PM EDT High levels of biotin in samples may falsely decrease hsTroponin values. ??Use caution when interpreting hsTroponin results in patients taking biotin who exhibit renal impairment (eGFR <60) or in patients taking more than 20 mg/day of biotin. Marlon Whitaker MD LAB BLOOD ORDERABLES Final Result Performing Organization Address [facility] de Phone Number [facility] [address] [place] [address], [place] [phone] * (ABNORMAL) POCT Glucose, blood (10/17/2024 6:47 PM EDT) [facility] Glucose POCT 209(H) 70 - 100 mg/dL 10/17/2024 10:46 PM EDT [facility] Blood Capillary blood specimen / Unknown 10/17/2024 6:47 PM EDT 10/17/2024 10:47 PM EDT us Generic Provider Poct LAB POINT OF CARE TEST DOCKED DEVICE UNSOLICITED RESULTS Final Result [facility] [address] [place] [address], [place] [phone] * XR Chest 2 Views (10/17/2024 6:24 PM EDT) Anatomical Region Laterality Modality Body Radiographic Estela ging 10/18/2024 9:08 AM EDT Impressions 10/18/2024 9:09 AM EDT No acute findings. -------- FINAL REPORT -------- Dictated By: Ashish Meade Dictated Date: 10/18/2024 09:08 ET Assigned Physician: Ashish Meade Reviewed and Electronically Signed By: Ashish Meade Signed Date: 10/18/2024 09:09 ET Workstation ID: [id number] Transcribed By: Self Edit Transcribed Date: 10/18/2024 09:08 ET Narrative 10/18/2024 9:09 AM EDT PROCEDURE: PA and lateral radiographs of the chest. HISTORY: chest pain. COMPARISON: None. FINDINGS: Elevated right hemidiaphragm. ??Lungs, pleural spaces, pulmonary vasculature, and cardiomediastinal contours are normal. ??Mild degenerative changes of the spine. Procedure Note Ashish Meade MD - 10/18/2024 PROCEDURE: PA and lateral radiographs of the chest. HISTORY: chest pain. COMPARISON: None. FINDINGS: Elevated right hemidiaphragm. Lungs, pleural spaces, pulmonaryvasculature, and cardiomediastinal contours are normal. Mild degenerativechanges of the spine. IMPRESSION: No acute findings. -------- FINAL REPORT -------- Dictated By: Ashish Meade Dictated Date: 10/18/2024 09:08 ET Assigned Physician: Ashish Meade Reviewed and Electronically Signed By: Ashish Meade Signed Date: 10/18/2024 09:09 ET Workstation ID: [id number] Transcribed By: Self Edit Transcribed Date: 10/18/2024 09:08 ET Marlon Whitaker MD IMG XR PROCEDURES Final Res ult * ECG 12 lead (10/17/2024 5:32 PM EDT) Ventricular Rate ECG 80 BPM GEMUSE Atrial Rate 80 BPM GEMUSE P-R Interval 158 ms GEMUSE QRS Duration 94 ms GEMUSE Q-T Interval 402 ms GEMUSE QTc 463 ms GEMUSE P Wave [place] 51 degrees GEMUSE R [place] -56 degrees GEMUSE T [place] 57 degrees GEMUSE ECG Interpretation Normal sinus rhythm Left anterior fascicular block Minimal voltage criteria for LVH, may be normal variant ( Heath product ) Abnormal ECG No previous ECGs available Confirmed by DONNA MARTIN ([id number]) on 10/18/2024 2:10:41 PM GEMUSE 10/17/2024 5:32 PM EDT 10/18/2024 2:10 PM EDT Marlon Whitaker MD ECG ORDERABLES Final Resul t GEMUSE documented in this encounter Visit Diagnoses Diagnosis Chest pain, unspecified type- Primary Encounter for screening mammogram for breast cancer documented in this encounter Administered Medications Inactive Administered Medications - up to 3 most recent administrations Medication Order MAR Action Action Date Dose Rate Site acetaminophen (TYLENOL) tablet 1,000 mg 1,000 mg, oral, Once, On Bev 10/18/24 at 0143, For 1 dose Given 10/18/2024 1:53 AM EDT 1,000 mg iopamidoL (ISOVUE-370) 370 mg iodine /mL (76 %) injection 100 mL 100 mL, intravenous, Once in imaging, Starting on Tue10/17/24 at 6, For 1 dose Given 10/17/2024 9:27 PM EDT 90 mL ketorolac (TORADOL) injection 15 mg 15 mg, intravenous, Once, On Tue10/17/24 at 2058, For 1 dose Given 10/17/2024 9:01 PM EDT 15 mg ketorolac (TORADOL) injection 15 mg 15 mg, intravenous, Once, On Bev 10/18/24 at 0143, For 1 dose Given 10/18/2024 1:53 AM EDT 15 mg sodium chloride 0.9 % flush 10 mL 10 mL, intravenous, Once, On Tue10/17/24 at 2126, For 1 dose Given 10/17/2024 9:27 PM EDT 10 mL documented in this encounter Active and Recently Administered Medications Times are shown in EDT. Scheduled Medication Order 10/16/2024 10/17/2024 10/18/2024 acetaminophen (TYLENOL) tablet 1,000 mg (COMPLETED) 1,000 mg, oral, Once, On Bev 10/18/24 at 0143, For 1 dose 015 (Given - Provid er: Machelle Louie RN) iopamidoL (ISOVUE-370) 370 mg iodine /mL (76 %) injection 100 mL (COMPLETED) 100 mL, intravenous, Once in imaging, Starting on Tue10/17/24 at 2125, For 1 dose 2126 (Given - Provider: Becky Araiza) ketorolac (TORADOL) injection 15 mg (COMPLETED) 15 mg, intravenous, Once, On Tue10/17/24 at 2058, For 1 dose 2100 (Given - Provider: Mehul Huston RN) ketorolac (TORADOL) injection 15 mg (COMPLETED) 15 mg, intravenous, Once, On Bev 10/18/24 at 0143, For 1 dose 0153 (Given - Provid er: Machelle Louie RN) sodium chloride 0.9 % flush 10 mL (COMPLETED) 10 mL, intravenous, Once, On Tue10/17/24 at 2126, For 1 dose 2126 (Given - Provider: Becky Araiza) documented in this encounter Additional Health Concerns Assessment Noted Time PHQ-9 Depression Total Score: 0 09/12/19 25 11:56 AM EDT documented as of this encounter Care Teams Msw Relationship Specialty Start Date End Date Danny Dobson MD [address] [place] [id number] PCP - General 02/17/24 documented as of this encounter
--- OUTSIDE RECORDS SUMMARY | 2024-10-22 11:25 | XMS_ITS | Clinical Summary ---
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 [facility] Glucose Testing Supplies ( meter, test strips, lancing device, control solution, lancets, meter battery) TEST TWICE A DAY 1 each 3 3 Active abatacept (ORENCIA) 125 mg/mL injection Inject 8 mL (1,000 mg total) under the skin every 30 (thirty) days. Active cholecalcifero l, vitamin D3, 250 mcg (10,000 unit) tablet Take 250 mcg by mouth. Active aspirin 81 mg chewable tablet Chew 1 tablet (81 mg total). 4 Active acetaminophen (TYLENOL) 500 mg tablet Take 2 tablets (1,000 mg total) by mouth. 4 Active blood-glucose meter kit Glucose Testing Supplies ( meter, test strips, lancing device, control solution, lancets, meter battery) TEST TWICE A DAY 3 Active polyethylene glycol (Golytely) 236-22.74-6.74 -5.86 gram solution Take 4L by mouth once for one dose. May substitue any PEG. Starting at 6PM the night before your procedure drink 1 8oz glasses at your own pace until you complete half of the gallon. Finish 2nd half of the gallon 5 hours before your procedure. 4000 mL 5 Active bisacodyL (DULCOLAX) 5 mg EC tablet Take 2 tablets by mouth right before beginning bowel prep. See instructions provided by the office 2 tablet 5 Active pen needle, diabetic (BD Ultra-Fine Treasure Pen Needle) 32 gauge x needle Insulin administration 100 each 1 5 Active losartan (COZAAR) 100 mg tablet Take 1 tablet (100 mg total) by mouth 1 (one) time each day. 90 each 5 Active amLODIPine (NORVASC) 5 mg tablet Take 1 tablet (5 mg total) by mouth 1 (one) time each day. 90 each 5 Active empagliflozin (JARDIANCE) 25 mg tablet Take 1 tablet (25 mg total) by mouth 1 (one) time each day in the morning. 90 tablet 1 5 Active atorvastatin (LIPITOR) 10 mg tablet Take 1 tablet (10 mg total) by mouth 1 (one) time each day. 90 tablet 1 5 Active hydroCHLOROthi azide (HYDRODIURIL) 25 mg tablet Take 1 tablet (25 mg total) by mouth 1 (one) time each day. 90 each 5 Active levothyroxine (SYNTHROID, LEVOTHROID) 100 mcg tablet Take 1 tablet (100 mcg total) by mouth 1 (one) time each day before breakfast. 90 each 5 025 Active metFORMIN (GLUCOPHAGE) 1,000 mg tablet Take 1 tablet (1,000 mg total) by mouth 2 (two) times a day with meals. 180 tablet 1 5 Active insulin glargine (Lantus U-100 Insulin) 100 unit/mL injection Inject 30 Units under the skin at bedtime. 30 mL 5 026 Active insulin syringe-needle U-100 1 mL 31 gauge x 11/16 syringe USE TO INJECT INSULIN ONCE DAILY DIRECTED 100 each 5 Active blood sugar diagnostic (True Metrix Glucose Test Strip) test strip Use as instructed 100 each 5 Active ibuprofen (ADVIL,MOTRIN) 600 mg tablet Take 1 tablet (600 mg total) by mouth every 6 (six) hours if needed for mild pain or moderate pain for up to 10 days. 30 tablet 5 025 Active Active Problems Problem Noted Date Diagnosed Date Status post total right knee replacement 024 Diabetes mellitus with hyper glycemia, with long-term current use of insulin ([facility] V24, [facility] V28) 04/02/2024 Overview (04/02/2024): Uncontrolled Degenerative lumbar spinal stenosis 10/31/2023 Primary osteoarthritis of left knee 10/31/2023 Post-traumatic osteoarthritis of right knee 10/03 Psoriasis 10/28/2023 Hypertension 03/25/2023 Assessment & Plan (03/25/2023 9:26 AM EDT): Continue with BP meds Hyperlipidemia 03/25/2023 Type 2 diabetes mellitus, wi thout long-term current use of insulin ([facility] V24, [facility] V28) 03/25/2023 Assessment & Plan (03/25/2023 9:25 AM EDT): Continue with current meds Hypothyroidism 03/25/2023 Assessment & Plan (03/25/2023 9:25 AM EDT): continue with levothyroxine Rheumatoid arthritis ([facility] V24, [facility] V28) 03/25/2023 Complete tear of radial newton ateral ligament of metacarpophalangeal (MCP) joint of finger 11/15/2022 Overview (11/15/2022): sprain Dupuytren's contracture of right hand 11/15/2022 Primary osteoarthritis of fi rst carpometacarpal joint of right hand 11/15/2022 Cerebral aneurysm, nonruptured 09/14/2022 Brain aneurysm 09/08/2022 Assessment & Plan (09/08/2022 9:13 AM EST): Hold metformin 48 hours before the surgery. Continue with Plavix Obesity 03/25/2022 Resolved Problems Problem Noted Date Diagnosed Date Resolved Date Acquired hammertoe of left foot 03/25/2022 09/15/2022 Acquired hammertoe of right foot 03/25/2022 09/15/2022 Allergic rhinitis 03/25/2022 09/15/2022 Contusion of great toe, left 03/25/2022 09/15/2022 Diabetes mellitus ([facility] V24, [facility] V28) 09/15/2022 Diabetic peripheral neuropat hy ([facility] V24, [facility] V28) 03/25/2022 09/15/2022 Fatigue 03/25/2022 09/15/2022 Foot pain 03/25/2022 09/15/2022 Fracture of phalanx of toe 03/25/2022 0 09/15/2022 Hyperlipidemia associated wi th type 2 diabetes mellitus ([facility] V24, [facility] V28) 03/25/2022 09/15/2022 Hyperlipidemia 03/25/2022 09/15/2022 Hypertension 03/25/2022 09/15/2022 Assessment & Plan (09/08/2022 9:14 AM EST): Continue with meds Hypothyroidism 03/25/2022 09/15/2022 Joint pain in fingers of left hand 03/25/2022 09/15/2022 Joint pain in fingers of right hand 03/25/2022 09/15/2022 Low back pain 03/25/2022 09/15/2022 Generalized osteoarthritis of hand 03/25/2022 09/15/2022 Primary osteoarthritis of fi rst carpometacarpal joint of left hand 03/25/202209/15 Primary osteoarthritis of fi rst carpometacarpal joint of right hand 03/25/202209/01 Paronychia of finger 03/25/2022 023 Primary localized osteoarthr itis of knees, bilateral 03/25/2022 09/15/2022 Vitamin D deficiency 03/25/2022 023 Anxiety 03/25/2022 09/15/2022 Morbid obesity with BMI of 4 0.0-44.9, adult ([facility] V24, [facility] V28) 03/25/2022 09/15/2022 Encounters Date Type Department Care Team Description 10/17/2024 5:57 PM EDT - 10/18/2024 3:53 AM EDT Emergency [facility] Emergency [address] [place] [address] Chest pain, unspecified type (Primary Dx) Discharge Disposition: Home or Self Care 10/10/2024 10:36 AM EDT - 10/10/2024 11:59 PM EDT Hospital Encounter [facility] Ultrasound [address] [place] [address] Congenital multiple renal cysts Discharge Disposition: Home or Self Care 09/18/2024 7:45 AM EDT Office Visit Adult Medicine [address] [phone] Danny Dobson MD Hypothyroidism, unspecified type (Primary Dx); Hypertension, unspecified type; Type 2 diabetes mellitus with hyperglycemia, with long-term current use of insulin ([facility] V24, [facility] V28); Class 2 severe obesity due to excess calories with serious comorbidity and body mass index (BMI) of 37.0 to 37.9 in adult ([facility] V24, [facility] V28) 09/07/2024 1:44 PM EST - 09/07/2024 11:59 PM EST Hospital Encounter [facility] MRI [address] [place] [address] Lumbar radiculopathy Discharge Disposition: Home or Self Care 08/13/2024 Telephone Orthopedic Surgery - [place] [address] [facility] [address] [place] [phone] Christian Lindo 07/25/2024 8:49 AM EST Anesthesia Event [facility] Endoscopy [address] [place] [address] Sam Worrell MD 07/25/2024 7:18 AM EST - 07/25/2024 11:59 PM EST Hospital Encounter [facility] Endoscopy [address] [place] [address] Richelle Pritchard MD Personal history of colon polyps, unspecified Discharge Disposition: Home or Self Care 07/25/2024 Telephone Gastroenterology - [place] 175 [facility] 175 [facility] [address] [place] [address] Richelle Pritchard MD special procedure from Last 3 Months Immunizations Name Administration Dates Next Due Influenza Quadravalent, MDCK , 0.5ml, with preservative (Flucelvax) 6mo and older 04/27/2018 Influenza trivalent, 0.5mL, preservative free (Fluarix; FluLaval; Fluzone) ages 6mo and older (Afluria) 3 years and older 04/19/2017 Surgical History Surgery Date Site/Laterality Comments APPENDECTOMY HYSTERECTOMY 07/04/1977 - 07/03/1978 partial KNEE ARTHROSCOPY Right 1999 and 2008 right scope GLAUCOMA SURGERY 07/04/2014 - 07/03/2015 iridectomy sector THYROID SURGERY 07/04/2008 - 07/03/2009 Left TONSILLECTOMY TONSILLECTOMY PROCEDURE: HISTORICAL TONSILLECTOMY APPENDECTOMY PROCEDURE: HISTORICAL APPENDECTOMY HYSTERECTOMY PROCEDURE: HISTORICAL HYSTERECTOMY; COMMENT: menorragia WISDOM TOOTH EXTRACTION PROCEDURE: HISTORICAL WISDOM TEETH EXTRACTION KNEE ARTHROSCOPY Bilateral PROCEDURE: CA ARTHROSCOPY KNEE DIAGNOSTIC W/WO SYNOVIAL BX SPX; COMMENT: in [facility] OTHER SURGICAL HISTORY PROCEDURE: HISTORY OTHER; COMMENT: Brain aneurysm- coils placed- in [facility] in september 2022 BREAST BIOPSY Left PROCEDURE: BX BREAST; PERC NEEDLE CORE W/IMAG GUID; COMMENT: yrs ago-benign Medical History Medical History Date Comments Diabetes ([facility] V24, [facility] V28) HTN (hypertension) Hyperlipidemia Diabetes mellitus (CMS/HCC V 24, [facility] V28) 03/25/2022 Diabetic peripheral neuropat hy (CMS/HCC V24, [facility] V28) 03/25/2022 Hypertension 03/25/2022 Primary osteoarthritis of fi rst carpometacarpal joint of left hand 03/25/2022 Vitamin D deficiency 03/25/2022 Anxiety 03/25/2022 Morbid obesity with BMI of 4 0.0-44.9, adult (CMS/HCC V24, [facility] V28) 03/25/2022 Hypothyroidism 03/25/2022 Brain aneurysm DX:Brain aneurys m Basal cell carcinoma DX:Basal ce ll carcinoma Colon polyps DX:Colon polyps Straining with stools DX:Straini ng with stools Encounter for screening colonoscopy DX:Encounter for screening colonoscopy Family History Medical History Relation Name Comments Brain Aneurysm Brother 1 oldest brother Brain Aneurysm Brother 2 youngest brother Brain Aneurysm Brother 3 Marcell Brain Aneurysm Father Subarachnoid hemorrhage Father cardiac disorder Father Uterine cancer Mother malignant neoplasm of kidney Mother Arthritis Sister twin sister Hypertension Sister twin sister Relation Name Status Comments Brother 1 oldest brother Brother 2 youngest brother Brother 3 Marcell Alive Father Mother Sister twin sister Alive Social History Tobacco Use Types Packs/Day Years Used Date Smoking Tobacco: Never Smokeless Tobacco: Never Tobacco Cessation:Counseling Given: No Alcohol Use Standard Drinks/Week Comments Never 0 [...] for your loved ones. For example, child custody evaluator or elderly care for an older adult? [...] file Travel History Travel Start Travel End [place] 09/16/2024 10/17/2024 Obstetrics History Last Filed Vital Signs Vital Sign Reading [...] Mass Index 37.08 10/17/2024 5:25 PM EDT Plan of Treatment Upcoming Encounters Date Type Department Care Team (Late st Contact Info) Description 11/29/2024 8:30 AM EDT Appointment [facility] Endoscopy [address] [place] [phone] Richelle Pritchard MD [address] [address] 12/11/2024 1:00 PM EDT Office Visit Orthopedic Surgery [place] [address] [phone] Cesar Le DPM [address] [address] 12/19/2024 7:45 AM EDT Office Visit Adult Medicine [place] [address] [phone] Danny Dobson MD [address] [place] [phone] 02/22/2025 10:20 AM EDT Appointment Radiology Department - [address] [phone] 04/18/2025 9:30 AM EDT Office Visit Orthopedic Surgery [place] [address] [phone] Quinton Saleem MD [address] [address] Health Maintenance Due Date Last Done Comments RSV Immunization Adult Patients (1 - 1-dose 75+ series) 2021 Hepatitis C Screening 01/09/2022 COVID-19 Vaccine (8 - Pfizer risk 2023- season) 2024 03/20/2024, 05/17/2023, 03/16/2022, Additional history exists Medicare Annual Wellness Visit 02/16/2025 02/17/2024 Diabetes: Blood Sugar Control Test (HGBA1C) 03/15/2025 09/12/2024, 06/20/2024, 04/12/2024, Additional history exists Diabetes: Annual Foot Exam 07/04/2025 P ostponed from 01/29/1955 (Patient Refused) Diabetes: Annual Retina Eye Exam 07/04/2025 Postponed from [birth year]/29/1955 (Patient Refused) Falls Risk Assessment 07/25/2025 07/25/2024 , 02/17/2024, 06/10/2022, Additional history exists Depression Screening 09/11/2025 09/11/2024, 02/17/20 24 Social Influencers of Health Screening 09/11/2025 09/11/2024 Diabetes: Annual Urine Albumin-Creatinine Ratio (uACR) 09/12/2025 09/12/2024, 06/20/2024, 10/18/2023, Additional history exists Diabetes: Annual GFR (Glomerular Filtration Rate) 10/17/2025 10/17/2024, 09/12/2024, 06/20/2024, Additional history exists Hypertension/CHF/CAD Annual BMP Blood Test 10/17/2025 10/17/2024, 09/12/2024, 06/20/2024, Additional history exists Cholesterol Screening (Lipid Panel) 09/12/2029 09/12/2024, 06/20/2024, 10/17/2023, Additional history exists DTaP,Tdap,and Td Vaccines (2 - Td or Tdap) 01/26/2031 01/26/2021 Osteoporosis Screening (Bone Density Screening) 07/10/2034 07/10/2024 Zoster Vaccines Completed 02/06/2023, 12/06/2022 Influenza Vaccine Completed 03/20/2024, , 03/16/2022, Additional history exists Pneumococcal Vaccine: 50+ Years Completed 07/13/2024 Colorectal Cancer Screening: Colonoscopy Discontinued 07/25/2024 HIB Vaccines Aged Out No longer eligi ble based on patient's age to complete this topic HPV Vaccines Aged Out No longer eligi ble based on patient's age to complete this topic Hepatitis A Vaccines Aged Out No long er eligible based on patient's age to complete this topic Hepatitis B Vaccines Aged Out No long er eligible based on patient's age to complete this topic IPV Vaccines Aged Out No longer eligi ble based on patient's age to complete this topic MMR Vaccines Aged Out No longer eligi ble based on patient's age to complete this topic Meningococcal ACWY Vaccine Aged Out N o longer eligible based on patient's age to complete this topic Meningococcal B Vaccine Aged Out No l onger eligible based on patient's age to complete this topic RSV Immunization Patients Under 20 months Aged Out No longer eligible based on patient's age to complete this topic Varicella Vaccines Aged Out No longer eligible based on patient's age to complete this topic Goals Goal Patient Goal Type Associated Problems [...] w/ final HEP of CKC strengthening. (Met). Medical Devices Implanted Type Area Activity Director Device Identifier Shelf Expiration Date Model / Serial / Lot Cath Iv Nexiva 20ga 1.25in [facility] [id number] - [id number] Implanted:Qt y: 1 on 09/07/2022 at [facility] Central/Perip heral Catheters and Ports Right: Arm [employer] SYSTEM [id number] 05/03/2025 [id number] / [id number] / [id number] Coil Axium 3d 2hlg1kc - [id number] - [id number] Implanted:Qt y: 1 on 09/14/2022 by Erickson Mckeon MD at [facility] Embolectomy Implants Right: Cerebrum [employer] - EV3 FKA COVD-EV3 [id number] 08/29/2023 QC-2-4- 3D / [id number] / [id number] Coil Axium 3d 3.5mm X 6cm Implanted:Qt y: 1 on 09/14/2022 by Erickson Mckeon MD at [facility] Embolectomy Implants Right: Brain [employer] - EV3 FKA COVD-EV3 08/20/2023 -3.5- 6-3D / [id number] / Stent Nf Atlass 3.0x21mm No Tip - [id number] - [id number] Implanted:Qt y: 1 on 09/14/2022 by Erickson Mckeon MD at [facility] Peripheral Vasc Bare Metal Stents Right: Cerebrum [employer] [facility] [id number] 03/29/2026 [id number] / [id number] / System Perclose Prostyle Suture Medicated - [id number] - [id number] Implanted:Qt y: 1 on 09/07/2022 at [facility] Vascular Closure Devices Right: Groin [employer] [facility] [id number] 05/03/2024 73335-8 3 / [id number] / F8 System Perclose Prostyle Suture Medicated - [id number] - [id number] Implanted:Qt y: 1 on 09/14/2022 by Erickson Mckeon MD at [facility] Vascular Closure Devices Right: Groin [employer] [facility] [id number] 05/03/2024 01306-1 3 / / System Perclose Prostyle Suture Medicated - [id number] - [id number] Implanted:Qt y: 1 on 03/11/2023 by Lee Egan MD at [facility] Vascular Closure Devices Right: Groin [employer] [facility] [id number] 10/31/2024 92502-7 3 / [id number] / [id number] Procedures Procedure Name Priority Date/Time Associated Diagnosis Comments US ABDOMEN LIMITED STAT 10/18/2024 12 :43 AM EDT ECG ANNOTATED 10/18/2024 POCT GLUCOSE BLOOD Routine 10/17/2024 10 :[address] ANGIO CHEST WO AND/OR W CONTRAST STAT 10/17/2024 9:36 PM EDT Chest pain, unspecified type ECG 12-LEAD STAT 10/17/2024 8:14 PM EDT TROPONIN I HIGH SENSITIVITY STAT 10/17/2024 8:14 PM EDT CBC WITH AUTO DIFFERENTIAL STAT 10/17/2024 7:13 PM EDT B-TYPE NATRIURETIC PEPTIDE STAT 10/17/2024 7:13 PM EDT MAGNESIUM STAT 10/17/2024 7:13 PM EDT LIPASE STAT 10/17/2024 7:13 PM EDT COMPREHENSIVE METABOLIC PANEL STAT 10/17/2024 7:13 PM EDT CBC AND DIFFERENTIAL STAT 10/17/2024 7:13 PM EDT TROPONIN I HIGH SENSITIVITY STAT 10/17/2024 7:13 PM EDT POCT GLUCOSE BLOOD Routine 10/17/2024 6: 47 PM EDT XR CHEST 2 VIEWS STAT 10/17/2024 6:24 PM EDT ECG 12-LEAD STAT 10/17/2024 5:32 PM EDT US RETROPERITONEAL COMPLETE Routine 10/10/2024 11:14 AM EDT Congenital multiple renal cysts COMPREHENSIVE METABOLIC PANEL Routine 09/12/2024 7:56 AM EDT Type 2 diabetes mellitus without complication, with long-term current use of insulin (CMS/HCC V24, CMS/HCC V28) HEMOGLOBIN A1C Routine 09/12/2024 7:56 AM EDT Type 2 diabetes mellitus without complication, with long-term current use of insulin (CMS/HCC V24, CMS/HCC V28) LIPID PANEL WITH REFLEX TO DIRECT LDL Routine 09/12/2024 7:56 AM EDT Type 2 diabetes mellitus without complication, with long-term current use of insulin ([facility] V24, [facility] V28) MICROALBUMIN CREATININE URINE RATIO Routine 09/12/2024 7:56 AM EDT Type 2 diabetes mellitus without complication, with long-term current use of insulin ([facility] V24, [facility] V28) MR LUMBAR SPINE WO AND W CONTRAST Routine 09/07/2024 3:12 PM EST Lumbar radiculopathy COLONOSCOPY Routine 07/25/2024 9:06 AM EST Personal history of colon polyps, unspecified BD BONE DENSITY DXA APPENDICULAR SKELETON Routine 07/10/2024 11:24 AM EST Asymptomatic menopausal state DEPRESSION SCREENING Routine 02/17/2024 FALLS RISK ASSESSMENT Routine 02/17/2024 from Last 3 Months or Most Recently Relevant to Health Maintenance Results * US Abdomen Limited (10/18/2024 12:43 [...] POCT Glucose, blood (10/17/2024 10:46 PM EDT) Only the most recent of2 resultswithin the time period is included. Glucose POCT 191(H) 70 - 100 mg/dL 10/17/2024 10:48 PM EDT [facility] Blood Capillary blood specimen / Unknown 10/17/2024 10:46 PM EDT 10/17/2024 10:49 PM EDT us Generic Provider Poct LAB POINT OF CARE TEST DOCKED DEVICE UNSOLICITED RESULTS Final Result [facility] [address] [place] [address], * CT Angio Chest wo and/or w [...] by: Kavitha Hallman MD on 10/17/2024 22:07:58 us [address] IMG CT PROCEDURES Final Result * ECG 12 lead (10/17/2024 8:14 PM EDT) Only the most recent of2 resultswithin the time period is included. Pathologist [facility] Ventricular Rate ECG 74 BPM GEMUSE Atrial Rate 74 BPM GEMUSE P-R Interval 162 ms GEMUSE QRS Duration 94 ms GEMUSE Q-T Interval 412 ms GEMUSE QTc 457 ms GEMUSE P Wave [place] 32 degrees GEMUSE R [place] -49 degrees GEMUSE T [place] 43 degrees GEMUSE ECG Interpretation Normal sinus rhythm Left anterior fascicular block Abnormal ECG When compared with ECG of 17-OCT-2024 17:32, No significant change was found Confirmed by DONNA MARTIN ([id number]) on 10/18/2024 6:22:31 PM GEMUSE 10/17/2024 8:14 PM EDT 10/18/2024 6:22 PM EDT Marlon Whitaker MD ECG ORDERABLES Final Resul t GEMUSE * Troponin I high sensitivity (10/17/2024 8:14 PM EDT) Only the most recent of2 resultswithin the time period is included. [facility] High Sensitivity Troponin I 7 <=54 ng/L LAB CHEMISTRY METHOD 10/17/2024 9:02 PM EDT [facility] Blood Venous blood specimen / Unknown Venipuncture / Unknown 10/17/2024 8:14 PM EDT 10/17/2024 8:23 PM EDT Narrative [facility] - 10/17/2024 9:02 PM EDT High levels of biotin in samples may falsely decrease hsTroponin values. ??Use caution when interpreting hsTroponin results in patients taking biotin who exhibit renal impairment (eGFR <60) or in patients taking more than 20 mg/day of biotin. us Marlon Whitaker MD LAB BLOOD ORDERABLES Final Result [facility] [address] [place] [address], [place] [phone] * (ABNORMAL) CBC auto differential (10/17/2024 7:13 PM EDT) WBC 12.9(H) 4.8 - 10.8 K/mcL LAB HEMETOLOGY METHOD 10/17/2024 7:51 PM EDT [facility] RBC 5.10(H) 3.80 - 4.80 M/mcL LAB HEMETOLOGY METHOD 10/17/2024 7:51 PM EDT [facility] Hemoglobin 15.9 11.5 - 16.0 g/dL LAB HEMETOLOGY METHOD 10/17/2024 7:51 PM EDT [facility] Hematocrit 47.7(H) 35.0 - 47.0 % LAB HEMETOLOGY METHOD 10/17/2024 7:51 PM EDT [facility] MCV 93.3 79.0 - 98.0 FL LAB HEMETOLOGY METHOD 10/17/2024 7:51 PM EDT [facility] MCH 31.1 27.0 - 32.0 pcg LAB HEMETOLOGY METHOD 10/17/2024 7:51 PM EDT [facility] MCHC 33.3 32.0 - 37.0 g/dL LAB HEMETOLOGY METHOD 10/17/2024 7:51 PM EDT [facility] RDW 14.5 11.0 - 15.0 % LAB HEMETOLOGY METHOD 10/17/2024 7:51 PM EDT [facility] Platelets 309 130 - 400 K/mcL LAB HEMETOLOGY METHOD [facility]/17[facility] MPV 11.2(H) 7.0 - 11.0 FL LAB HEMETOLOGY METHOD 10/17/2024 7:51 PM [facility] NRBC 0.0 <1.0 % LAB HEMETOLOGY METHOD 10/17/2024 7:51 PM [facility] NRBC Absolute 0.00 <0.10 K/mcL LAB HEMETOLOGY METHOD 10/17/2024 7:51 PM [facility] Neutrophils Relative 73.6 % LAB HEMETOLOGY METHOD 10/17/2024 7:51 PM [facility] Lymphocytes Relative 18.8 % LAB HEMETOLOGY METHOD 10/17/2024 7:51 PM [facility] Monocytes Relative 6.3 % LAB HEMETOLOGY METHOD 10/17/2024 7:51 PM [facility] Eosinophils Relative 0.4 % LAB HEMETOLOGY METHOD 10/17/2024 7:51 PM [facility] Basophils Relative 0.4 % LAB HEMETOLOGY METHOD 10/17/2024 7:51 PM [facility] Immature Granulocytes Relative 0.5 % LAB HEMETOLOGY METHOD 10/17/2024 7:51 PM [facility] Neutrophils Absolute 9.51(H) 1.50 - 7.00 K/mcL LAB HEMETOLOGY METHOD 10/17/2024 7:51 PM [facility] Lymphocytes Absolute 2.43 1.00 - 5.00 K/mcL LAB HEMETOLOGY METHOD 10/17/2024 7:51 PM [facility] Monocytes Absolute 0.82 0.20 - 1.00 K/mcL LAB HEMETOLOGY METHOD 10/17/2024 7:51 PM [facility] Eosinophils Absolute 0.05 0.00 - 0.50 K/mcL LAB HEMETOLOGY METHOD 10/17/2024 7:51 PM EDT [facility] Basophils Absolute 0.05 0.00 - 0.20 K/[facility] LAB HEMETOLOGY METHOD 10/17/2024 7:51 PM EDT [facility] Immature Granulocytes Absolute 0.06(H) 0.00 - 0.03 K/[facility] LAB HEMETOLOGY METHOD 10/17/2024 7:51 PM EDT [facility] Blood Venous blood specimen / Unknown Venipuncture / Unknown 10/17/2024 7:13 PM EDT 10/17/2024 7:41 PM EDT Marlon Whitaker MD LAB BLOOD ORDERABLES Final Result Performing Organization Address [facility]/ZIP Co de Phone Number [facility] [address] [place] [address], * B-type natriuretic peptide (10/17/2024 7:13 PM EDT) BNP 20 <=100 pcg/mL LAB CHEMISTRY METHOD 10/17/2024 8:21 PM EDT [facility] Blood Venous blood specimen / Unknown Venipuncture / Unknown 10/17/2024 7:13 PM EDT 10/17/2024 7:41 PM EDT Marlon Whitaker MD LAB BLOOD ORDERABLES Final Result [facility] [address] [place] [address], [place] [phone] * Magnesium (10/17/2024 7:13 PM EDT) Magnesium 2.6 1.9 - 2.6 mg/dL LAB CHEMISTRY METHOD 10/17/2024 8:19 PM EDT [facility] Blood Venous blood specimen / Unknown Venipuncture / Unknown 10/17/2024 7:13 PM EDT 10/17/2024 7:41 PM EDT Marlon Whitaker MD LAB BLOOD ORDERABLES Final Result Performing Organization Address City/[facility]/ZIP Co de Phone Number [facility] [address] [place] [address], [place] [phone] * Lipase (10/17/2024 7:13 PM EDT) Pathologist [facility] Lipase 22 13 - 75 unit/L LAB CHEMISTRY METHOD 10/17/2024 8:19 PM EDT [facility] Blood Venous blood specimen / Unknown Venipuncture / Unknown 10/17/2024 7:13 PM EDT 10/17/2024 7:41 PM EDT Marlon Whitaker MD LAB BLOOD ORDERABLES Final Result Performing Organization Address [facility]/ZIP Co de Phone Number [facility] [address] [place] [address], [place] [phone] * (ABNORMAL) Comprehensive metabolic panel (10/17/2024 7:13 PM EDT) Only the most recent of2 resultswithin the time period is included. [facility] Sodium 134 133 - 145 mmol/L LAB CHEMISTRY METHOD 10/17/2024 8:22 PM EDT [facility] Potassium 3.9 3.5 - 5.5 mmol/L LAB CHEMISTRY METHOD 10/17/2024 8:22 PM EDT [facility] Chloride 100 96 - 110 mmol/L LAB CHEMISTRY METHOD 10/17/2024 8:22 PM EDT [facility] CO2 27 21 - 32 mmol/L LAB CHEMISTRY METHOD 10/17/2024 8:22 PM EDT [facility] Anion Gap 7 3 - 11 LAB CHEMISTRY METHOD 10/17/2024 8:22 PM EDT [facility] Glucose 190(H) 70 - 100 mg/dL LAB CHEMISTRY METHOD 10/17/2024 8:22 PM [facility] BUN 26(H) 5 - 25 mg/dL LAB CHEMISTRY METHOD 10/17/2024 8:22 PM [facility] Creatinine 0.82 0.50 - 1.10 mg/dL LAB CHEMISTRY METHOD 10/17/2024 8:22 PM [facility] eGFR 73 >=60 mL/min/1. 73m2 LAB CHEMISTRY METHOD 10/17/2024 8:22 PM [facility] Comment:Calculation based on the??Chronic Kidney Disease Epidemiology Collaboration (CKD-EPI) equation refit??without adjustment for race. BUN/Creatinine Ratio 31.7 LAB CHEMISTRY METHOD 10/17/2024 8:22 PM [facility] Calcium 9.4 8.5 - 10.5 mg/dL LAB CHEMISTRY METHOD 10/17/2024 8:22 PM [facility] AST (SGOT) 13 10 - 42 unit/L LAB CHEMISTRY METHOD 10/17/2024 8:22 PM [facility] ALT (SGPT) 26 10 - 60 unit/L LAB CHEMISTRY METHOD 10/17/2024 8:22 PM [facility] Alkaline Phosphatase 72 42 - 121 unit/L LAB CHEMISTRY METHOD 10/17/2024 8:22 PM [facility] Total Protein 7.6 6.0 - 8.0 g/dL LAB CHEMISTRY METHOD 10/17/2024 8:22 PM [facility] Albumin 4.4 3.2 - 5.0 g/dL LAB CHEMISTRY METHOD 10/17/2024 8:22 PM [facility] Total Bilirubin 0.7 0.0 - 1.4 mg/dL LAB CHEMISTRY METHOD 10/17/2024 8:22 PM [facility] Blood Venous blood specimen / Unknown Venipuncture / Unknown 10/17/2024 7:13 PM EDT 10/17/2024 7:41 PM EDT us Marlon Whitaker MD LAB BLOOD ORDERABLES Final Result [facility] ([facility]) [facility] [address] [place] [address], [place] [phone] * XR Chest 2 Views (10/17/2024 6:24 PM EDT) Anatomical Region Laterality Modality Body Radiographic Estela ging 10/18/2024 9:08 AM EDT Impressions 10/18/2024 9:09 AM EDT No acute findings. -------- FINAL REPORT -------- Dictated By: Ashish Meade Dictated Date: 10/18/2024 09:08 ET Assigned Physician: Ashish Meade Reviewed and Electronically Signed By: Ashish Meade Signed Date: 10/18/2024 09:09 ET Workstation ID: [id number] Transcribed By: Self Edit Transcribed Date: 10/18/2024 [...] Signed Date: 10/18/2024 09:09 ET Workstation ID: [id number] Transcribed By: Self Edit Transcribed Date: 10/18/2024 09:08 ET us Marlon Whitaker MD IMG XR PROCEDURES Final Res ult * US Retroperitoneal Complete (10/10/2024 11:14 AM EDT) Anatomical Region Laterality Modality Body Ultrasound 10/10/2024 2:19 PM EDT Impressions 10/10/2024 2:24 PM EDT Mild generalized bilateral renal cortical thinning. ??2 small left-sided renal cysts. ??No hydronephrosis. -------- FINAL REPORT -------- Dictated By: Ashish Meade Dictated Date: 10/10/2024 14:19 ET Assigned Physician: Ashish Meade Reviewed and Electronically Signed By: Ashish Meade Signed Date: 10/10/2024 14:24 ET Workstation ID: [id number] Transcribed By: Self Edit Transcribed Date: 10/10/2024 14:19 ET Narrative 10/10/2024 2:24 PM EDT PROCEDURE: Renal ultrasound. HISTORY: CONGENITAL MULTIPLE RENAL CYST, RENAL LESION. TECHNIQUE: Grayscale, color Doppler, and spectral Doppler ultrasound of the kidneys. COMPARISON: None. FINDINGS: Right kidney measures 10.8 cm in length and the left kidney measures 11.8 cm in length. ??Mild generalized cortical thinning. ??No hydronephrosis. ??There is a simple cyst exophytic from the lower pole and a small parapelvic cyst on the left. ??No other focal lesion. Urinary bladder appears normal on limited evaluation. ??Neither ureteral jet was visualized, a nonspecific finding. Procedure Note Ashish Meade MD - 10/10/2024 PROCEDURE: Renal ultrasound. HISTORY: CONGENITAL MULTIPLE RENAL CYST, RENAL LESION. TECHNIQUE: Grayscale, color Doppler, and spectral Doppler ultrasound ofthe kidneys. COMPARISON: None. FINDINGS: Right kidney measures 10.8 cm in length and the left kidney measures 11.8cm in length. Mild generalized cortical thinning. No hydronephrosis.There is a simple cyst exophytic from the lower pole and a smallparapelvic cyst on the left. No other focal lesion. Urinary bladder appears normal on limited evaluation. Neither ureteraljet was visualized, a nonspecific finding. IMPRESSION: Mild generalized bilateral renal cortical thinning. 2 small left-sidedrenal cysts. No hydronephrosis. -------- FINAL REPORT -------- Dictated By: Ashish Meade Dictated Date: 10/10/2024 14:19 ET Assigned Physician: Ashish Meade Reviewed and Electronically Signed By: Ashish Meade Signed Date: 10/10/2024 14:24 ET Workstation ID: [id number] Transcribed By: Self Edit Transcribed Date: 10/10/2024 14:19 ET us Renaldo TOLLIVER IMFany US PROCEDURES Final Result * Lipid panel with reflex to direct LDL (09/12/2024 7:56 AM EDT) Cholesterol 141 0 - 200 mg/dL LAB CHEMISTRY METHOD 09/12/2024 10:12 AM [facility] Triglycerides 131 0 - 150 mg/dL LAB CHEMISTRY METHOD 09/12/2024 10:12 AM [facility] HDL 61 >=40 mg/dL LAB CHEMISTRY METHOD 09/12/2024 10:12 AM [facility] LDL Calculated 54 0 - 100 mg/dL LAB CHEMISTRY METHOD 09/12/2024 10:12 AM [facility] VLDL Cholesterol Aiden 26.2 mg/dL LAB CHEMISTRY METHOD 09/12/2024 10:12 AM [facility] Non HDL Chol. (LDL+VLDL) 80 <145 mg/dL LAB CHEMISTRY METHOD 09/12/2024 10:12 AM [facility] Chol/HDL Ratio 2.3 0.0 - 4.4 LAB CHEMISTRY METHOD 09/12/2024 10:12 AM [facility] Blood Venous blood specimen / Unknown Venipuncture / Unknown 09/12/2024 7:56 AM EDT 09/12/2024 7:56 AM EDT Danny Dobson MD LAB BLOOD ORDERABLES Final Result Performing Organization Address [facility]/ZIP Co de Phone Number [facility] [address] [place] [address], [place] [phone] * Microalbumin creatinine urine ratio (09/12/2024 7:56 AM EDT) Creatinine, Urine 66.0 mg/dL LAB CHEMISTRY METHOD 09/12/2024 10:45 AM EDT [facility] Microalb, Ur 15.9 0.0 - 29.0 mg/L LAB CHEMISTRY METHOD 09/12/2024 10:45 AM EDT [facility] Microalb/Creat Ratio 24 <30 mg/g creat LAB CHEMISTRY METHOD 09/12/2024 10:45 AM EDT [facility] Urine Urine specimen obtained by clean catch procedure / Unknown Non-blood Collection / Unknown 09/12/2024 7:56 AM EDT 09/12/2024 7:56 AM EDT Danny Dobson MD LAB URINE ORDERABLES Final Result Performing Organization Address City/[facility]/ZIP Co de Phone Number [facility] [address] [place] [address], [place] [phone] * (ABNORMAL) Hemoglobin A1c (09/12/2024 7:56 AM EDT) Hemoglobin A1C 8.0(H) <6.5 % LAB CHEMISTRY METHOD 09/12/2024 1:55 PM EDT [facility] Mean Bld Glu Estim. 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 Degenerative changes as detailed above. -------- FINAL REPORT -------- Dictated By: Ashish Meade Dictated Date: 09/07/2024 15:19 ET Assigned Physician: Ashish Meade Reviewed and Electronically Signed By: Ashish Meade Signed Date: 09/07/2024 15:26 ET Workstation ID: [id number] Transcribed By: Self Edit Transcribed Date: 09/07/2024 15:19 ET Narrative 09/07/2024 3:26 PM EST PROCEDURE: MRI of the lumbar spine with intravenous contrast. HISTORY: radiculopathy. TECHNIQUE: Sagittal and axial multisequence MRI of the lumbar spine with and without intravenous contrast administration. IV contrast dose: 20 mL intravenous Dotarem from a 20 mL vial with 0 mL discarded. COMPARISON: None. FINDINGS: Small bilateral renal parapelvic cysts and a cyst exophytic from the posterior lower pole of the left kidney. ??Mild lower lumbar paraspinous muscular atrophy. ??Small area of scarring in the subcutaneous fat overlying the L4 vertebral body. There is an 11 mm diameter T2 hyperintense structure suggestive of a cyst in the presacral region at S2. ??Layering internal low signal material suggestive of a fluid-fluid level. ??This is incompletely evaluated on this study. Slight anterolisthesis at L4-5. ??No compression deformity. ??No concerning marrow infiltrative lesion. ??Susceptibility artifact secondary to interspinous devices at L3-4 and L4-5. The conus is in a normal position at T12-L1. ??There is no abnormal enhancement of the conus or nerve roots of the cauda equina. Lumbar disc levels: L1-2: Mild endplate irregularity. ??Small anterior endplate osteophytes. ??Minimal symmetric disc bulge. ??Mild bilateral facet arthropathy and ligamentum flavum hypertrophy. ??No spinal or foraminal stenosis. L2-3: Mild endplate irregularity. ??Small anterior endplate osteophytes. ??Small symmetric disc bulge. ??Mild bilateral facet arthropathy. ??Slight widening of the right facet joint and mild bilateral ligamentum flavum hypertrophy, suggesting mild facet joint hypermobility. ??No spinal or foraminal stenosis. L3-4: Mild disc space height loss and endplate irregularity. ??Small anterior endplate osteophytes. ??Small symmetric disc bulge and minimal endplate osteophytes. ??Mild bilateral facet arthropathy and ligamentum flavum hypertrophy. ??Mild spinal stenosis. ??No significant foraminal stenosis. L4-5: Slight anterolisthesis. ??Mild endplate irregularity. ??Small disc bulge slightly eccentric to the right. ??Moderate bilateral facet arthropathy and mild bilateral ligamentum flavum hypertrophy. ??Moderate spinal stenosis. ??Minimal right foraminal stenosis. L5-S1: Mild endplate irregularity. ??Small right foraminal protrusion. ??Moderate right and mild left facet arthropathy. ??Mild right foraminal stenosis. ??No spinal stenosis. Procedure Note Ashish Meade MD - 09/07/2024 PROCEDURE: MRI of the lumbar spine with intravenous contrast. HISTORY: radiculopathy. TECHNIQUE: Sagittal and axial multisequence MRI of the lumbar spine withand without intravenous contrast administration. IV contrast dose: 20 mL intravenous Dotarem from a 20 mL vial with 0 mLdiscarded. COMPARISON: None. FINDINGS: Small bilateral renal parapelvic cysts and a cyst exophytic from theposterior lower pole of the left kidney. Mild lower lumbar paraspinousmuscular atrophy. Small area of scarring in the subcutaneous fatoverlying the L4 vertebral body. There is an 11 mm diameter T2 hyperintense structure suggestive of a cystin the presacral region at S2. Layering internal low signal materialsuggestive of a fluid-fluid level. This is incompletely evaluated on thisstudy. Slight anterolisthesis at L4-5. No compression deformity. No concerningmarrow infiltrative lesion. Susceptibility artifact secondary tointerspinous devices at L3-4 and L4-5. The conus is in a normal position at T12-L1. There is no abnormalenhancement of the conus or nerve roots of the cauda equina. Lumbar disc levels: L1-2: Mild endplate irregularity. Small anterior endplate osteophytes.Minimal symmetric disc bulge. Mild bilateral facet arthropathy andligamentum flavum hypertrophy. No spinal or foraminal stenosis. L2-3: Mild endplate irregularity. Small anterior endplate osteophytes.Small symmetric disc bulge. Mild bilateral facet arthropathy. Slightwidening of the right facet joint and mild bilateral ligamentum flavumhypertrophy, suggesting mild facet joint hypermobility. No spinal orforaminal stenosis. L3-4: Mild disc space height loss and endplate irregularity. Smallanterior endplate osteophytes. Small symmetric disc bulge and minimalendplate osteophytes. Mild bilateral facet arthropathy and ligamentumflavum hypertrophy. Mild spinal stenosis. No significant foraminalstenosis. L4-5: Slight anterolisthesis. Mild endplate irregularity. Small discbulge slightly eccentric to the right. Moderate bilateral facetarthropathy and mild bilateral ligamentum flavum hypertrophy. Moderatespinal stenosis. Minimal right foraminal stenosis. L5-S1: Mild endplate irregularity. Small right foraminal protrusion.Moderate right and mild left facet arthropathy. Mild right foraminalstenosis. No spinal stenosis. 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 Degenerative changes as detailed above. -------- FINAL REPORT -------- Dictated By: Ashish Meade Dictated Date: 09/07/2024 15:19 ET Assigned Physician: Ashish Meade Reviewed and Electronically Signed By: Ashish Meade Signed Date: 09/07/2024 15:26 ET Workstation ID: [id number] Transcribed By: Self Edit Transcribed Date: 09/07/2024 15:19 ET Renaldo TOLLIVER IM MRI PROCEDURES Final Resul t * COLONOSCOPY Anesthesia - MAC; [facility] ENDOSCOPY (07/25/2024 9:06 AM EST) Anatomical Region Laterality Modality Endoscopy 07/25/2024 8:53 AM EST Impressions 07/25/2024 9:07 AM EST - Preparation of the colon was poor. ? - Stool in the entire examined colon. ? - No specimens collected. Recommendation: ?- Discharge patient to home. ? - Repeat colonoscopy at the next available appointment ? because the bowel preparation was suboptimal. Narrative 07/25/2024 9:07 AM EST [facility] Patient Name: Kalyn Baum Procedure Date: 07/25/2024 8:53 AM Date of : 1945 Age: 79 Gender: Female Note Status: Finalized Attending MD: Richelle Pritchard MD, Procedure Date No Time: 07/25/2024 Procedure: ? Colonoscopy Indications: ? High risk colon cancer surveillance: Personal history ? of colonic polyps Providers: ? Richelle Pritchard MD Referring MD: ?Richelle Pritchard MD Medicines: ? Monitored Anesthesia Care Complications: ? No immediate complications. Estimated Blood Loss: ? Estimated blood loss: none. Procedure: ? Pre-Anesthesia Assessment: ? - Prior to the procedure, a History and Physical was ? performed, and patient medications and allergies were ? reviewed. The patient is competent. The risks and ? benefits of the procedure and the sedation options and ? risks were discussed with the patient. All questions ? were answered and informed consent was obtained. ? Patient identification and proposed procedure were ? verified by the physician, the nurse, the assistant administrator ? and the plant technician/control room operator in the pre-procedure area in the ? procedure room. Mental Status Examination: alert and ? oriented. Airway Examination: normal oropharyngeal ? airway and neck mobility. Respiratory Examination: ? clear to auscultation. CV Examination: normal. ? Prophylactic Antibiotics: The patient does not require ? prophylactic antibiotics. Prior Anticoagulants: The ? patient has taken no anticoagulant or antiplatelet ? agents. ASA Grade Assessment: III - A patient with ? severe systemic disease. After reviewing the risks and ? benefits, the patient was deemed in satisfactory ? condition to undergo the procedure. The anesthesia ? plan was to use monitored anesthesia care (MAC). ? Immediately prior to administration of medications, ? the patient was re-assessed for adequacy to receive ? sedatives. The heart rate, respiratory rate, oxygen ? saturations, blood pressure, adequacy of pulmonary ? ventilation, and response to care were monitored ? throughout the procedure. The physical status of the ? patient was re-assessed after the procedure. ? After I obtained informed consent, the scope was ? passed under direct vision. Throughout the procedure, ? the patient's blood pressure, pulse, and oxygen ? saturations were monitored continuously. The ? Colonoscope was introduced through the anus with the ? intention of advancing to the cecum. The scope was ? advanced to the transverse colon before the procedure ? was aborted. Medications were given. The colonoscopy ? was performed without difficulty. The patient ? tolerated the procedure well. The quality of the bowel ? preparation was poor. Findings: ?The perianal and digital rectal examinations were ? normal. ? Copious quantities of liquid semi-liquid stool was ? found in the entire colon, precluding visualization. Procedure Code(s): ? --- Professional --- ? G0105, 53, Colorectal cancer screening; colonoscopy on ? individual at high risk Diagnosis Code(s): ? --- Professional --- ? Z86.010, Personal history of colonic polyps CPT copyright 202 [employer]. All rights reserved. The codes documented in this report are preliminary and upon cathode ray tube assembler review may be revised to meet current compliance requirements. Richelle Pritchard MD 07/25/2024 9:07:34 AM This report has been signed electronically.Richelle Pritchard MD Number of Addenda: 0 Note Initiated On: 07/25/2024 8:53 AM Scope In: 9:01:38 AM Scope Out: 9:04:21 AM ? Endoscopy Department at [facility] - [address] [place] [address], ? [place] [address] Procedure Note Richelle Pritchard MD - 07/25/2024 [facility] Patient Name: Kalyn Baum Procedure Date: 07/25/2024 8:53 AM Date of : 1945 Age: 79 Gender: Female Note Status: Finalized Attending MD: Richelle Pritchard MD, Procedure Date No Time: 07/25/2024 Procedure: Colonoscopy Indications: High risk colon cancer surveillance: Personalhistory of colonic polyps Providers: Richelle Pritchard MD Referring MD: Richelle Pritchard MD Medicines: Monitored Anesthesia Care Complications: No immediate complications. Estimated Blood Loss: Estimated blood loss: none. Procedure: Pre-Anesthesia Assessment: - Prior to the procedure, a History and Physicalwas performed, and patient medications and allergieswere reviewed. The patient is competent. The risks and benefits of the procedure and the sedation optionsand risks were discussed with the patient. Allquestions were answered and informed consent was obtained. Patient identification and proposed procedure were verified by the physician, the nurse, theanesthetist and the plant technician/control room operator in the pre-procedure area in the procedure room. Mental Status Examination: alertand oriented. Airway Examination: normal oropharyngeal airway and neck mobility. Respiratory Examination: clear to auscultation. CV Examination: normal. Prophylactic Antibiotics: The patient does notrequire prophylactic antibiotics. Prior Anticoagulants: The patient has taken no anticoagulant or antiplatelet agents. ASA Grade Assessment: III - A patient with severe systemic disease. After reviewing the risksand benefits, the patient was deemed in satisfactory condition to undergo the procedure. The anesthesia plan was to use monitored anesthesia care (MAC). Immediately prior to administration of medications, the patient was re-assessed for adequacy to receive sedatives. The heart rate, respiratory rate, oxygen saturations, blood pressure, adequacy of pulmonary ventilation, and response to care were monitored throughout the procedure. The physical status ofthe patient was re-assessed after the procedure. After I obtained informed consent, the scope was passed under direct vision. Throughout theprocedure, the patient's blood pressure, pulse, and oxygen saturations were monitored continuously. The Colonoscope was introduced through the anus withthe intention of advancing to the cecum. The scope was advanced to the transverse colon before theprocedure was aborted. Medications were given. Thecolonoscopy was performed without difficulty. The patient tolerated the procedure well. The quality of thebowel preparation was poor. Findings: The perianal and digital rectal examinations were normal. Copious quantities of liquid semi-liquid stool was found in the entire colon, precludingvisualization. Procedure Code(s): --- Professional --- G0105, 53, Colorectal cancer screening; colonoscopyon individual at high risk Diagnosis Code(s): --- Professional --- Z86.010, Personal history of colonic polyps CPT copyright 2020 [employer]. All rights reserved. The codes documented in this report are preliminary and upon cathode ray tube assembler reviewmay be revised to meet current compliance requirements. Richelle Pritchard MD 07/25/2024 9:07:34 AM This report has been signed electronically.Richelle Pritchard MD Number of Addenda: 0 Note Initiated On: 07/25/2024 8:53 AM Scope In: 9:01:38 AM Scope Out: 9:04:21 AM Endoscopy Department at [facility] - [address] [place] [id number] IMPRESSION: - Preparation of the colon was poor. - Stool in the entire examined colon. - No specimens collected. Recommendation: - Discharge patient to home. - Repeat colonoscopy at the next availableappointment because the bowel preparation was suboptimal. us Richelle Pritchard MD GI~PROCEDURE ORDERABLES Fin al Result * BD Bone Density DXA Appendicular Skeleton (07/10/2024 11:24 AM EST) Anatomical Region Laterality Modality Body Bone Densitometr y 07/10/2024 8:03 PM EST Impressions 07/10/2024 8:05 PM EST Normal bone density Reference Information: The T-score is the number of standard deviations above or below the standard which is normal for young adults at their peak bone mineral density. The World Health Organization (WHO) interprets the T-scores as follows: At or above ??-1 SD ?Normal bone density Between -1 and -2.5 SD ??Osteopenia At or below -2.5 SD ?Osteoporosis -------- FINAL REPORT -------- Dictated By: Adria Joaquin Dictated Date: 07/10/2024 20:03 ET Assigned Physician: Adria Joaquin Reviewed and Electronically Signed By: Adria Joaquin Signed Date: 07/10/2024 20:05 ET Workstation ID: [id number] Transcribed By: Self Edit Transcribed Date: 07/10/2024 20:03 ET Narrative 07/10/2024 8:05 PM EST STUDY: ??DUAL ENERGY X-RAY ABSORPTIOMETRY / DXA REASON FOR EXAM: ?? Female, 79 years old ??Z78.0 TECHNIQUE: ?? Bone Mineral Density (BMD) measurements of the lumbar spine and left hip were obtained using HoloZüm XR Discovery W (S/N [id number]). ?? COMPARISON: None ?? FINDINGS: L1-L3 BMD: 1.389 g/cm2 L1-L3 T score: 3.4. ??This corresponds to Normal bone density. Left femoral neck BMD: 0.905 g/cm2 Left femoral neck T score: 0.5. ??This corresponds to Normal bone density. Left total hip BMD: 1.088 g/cm2 Left total hip T score: 1.2. ??This corresponds to Normal bone density. Procedure Note Adria Joaquin MD - 07/10/2024 STUDY: DUAL ENERGY X-RAY ABSORPTIOMETRY / DXA REASON FOR EXAM: Female, 79 years old Z78.0 TECHNIQUE: Bone Mineral Density (BMD) measurements of the lumbar spineand left hip were obtained using HoloZüm XR Discovery W (S/N [id number]). COMPARISON: None FINDINGS: L1-L3 BMD: 1.389 g/cm2 L1-L3 T score: 3.4. This corresponds to Normal bone density. Left femoral neck BMD: 0.905 g/cm2 Left femoral neck T score: 0.5. This corresponds to Normal bonedensity. Left total hip BMD: 1.088 g/cm2 Left total hip T score: 1.2. This corresponds to Normal bone density. IMPRESSION: Normal bone density Reference Information: The T-score is the number of standard deviations above or below thestandard which is normal for young adults at their peak bone mineraldensity. The World Health Organization (WHO) interprets the T-scores asfollows: At or above -1 SD Normal bone density Between -1 and -2.5 SD Osteopenia At or below -2.5 SD Osteoporosis -------- FINAL REPORT -------- Dictated By: Adria Joaquin Dictated Date: 07/10/2024 20:03 ET Assigned Physician: Adria Joaquin Reviewed and Electronically Signed By: Adria Joaquin Signed Date: 07/10/2024 20:05 ET Workstation ID: [id number] Transcribed By: Self Edit Transcribed Date: 07/10/2024 20:03 ET us Samira Tiwari MD IM DXA PROCEDURES Fin al Result * Falls Risk Assessment (02/17/2024) [facility] Falls Risk Assessment Abstracted us Historical Provider HEALTH MAINTENANCE Final Result * Depression Screening (02/17/2024) [facility] Depression Screening Abstracted us Historical Provider HEALTH MAINTENANCE Final Result from Last 3 Months or Most Recently Relevant to Health Maintenance Insurance MEDICARE [facility] Advance Directives Documents on File Type Date Recorded Patient Business Systems 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 Do not modify or discontinue any currently active code status orders. * No CPR/Do Not Intubate Date Activated Date Inactivated Comments 09/14/2022 8:20 PM 09/16/2022 3:[address] atus was ascertained in the following way: Code status discussion: discussion with patient To update the patient's code status, place a code status order. Do not modify or discontinue any currently active code status orders. * Full Code - Default Date Activated Date Inactivated Comments 09/14/2022 12:44 PM 09/14/2022 8:20 PM This is ord er is used when code status has not been discussed with the patient, or code status is otherwise unknown/unconfirmed To update the patient's code status, place a code status order. Do not modify or discontinue any currently active code status orders. * Full Code - Default Date Activated Date Inactivated Comments 09/07/2022 6:59 AM 09/08/2022 3:28 AM This is order is used when code status has not been discussed with the patient, or code status is otherwise unknown/unconfirmed To update the patient's code status, place a code status order. Do not modify or discontinue any currently active code status orders. Care Teams Job Putter Up And Ticket Preparer Relationship Specialty Start Date End Date Danny Dobson MD [address] [place] [address] PCP - General 02/17/24
[2024-10-22 11:41] LABS: MANUAL DIFF FLAG NO
[2024-10-22 12:13] LABS: Basophils Absolute Auto 0.1 X10*3/uL (0.0-0.2); Basophils Percent Auto 0.5 % (0-2); Eosinophils Absolute Auto 0.1 X10*3/uL (0.0-0.4); Hematocrit 45.8 % (37.0-47.0); Hemoglobin 15.1 g/dl (12.0-16.0); Imm Gran Abs Auto 0.05 X10*3/uL (0.00-0.03); Imm Gran Pct Auto 0.5 % (0.0-0.4); Lymphocytes Absolute Auto 2.1 X10*3/uL (1.2-4.9); Lymphocytes Percent Auto 19.2 % (20-40); Mean Corpuscular Hemoglobin 30.9 pg (27.0-33.0); Mean Corpuscular Volume 93.7 fL (80.0-98.0); Mean Platelet Volume 11.1 fL (9.4-12.3); Monocytes Absolute Auto 0.6 X10*3/uL (0.1-1.2); Monocytes Percent Auto 5.7 % (2-11); Neutrophils Percent Auto 73.1 % (45-73); Platelet Count 277 X10*3/uL (160-400); Red Blood Count 4.89 X10*6/uL (4.20-5.50); Red Cell Distribution Width 14.5 % (11.0-16.0)
[2024-10-22 12:51] LABS: Erythrocyte Sedimentation Rate 13 MM/HR (0-20)
[2024-10-22 13:01] LABS: Alanine Aminotransferase 20 U/L (0-31); Albumin Level 4.4 g/dL (3.5-5.0); Alkaline Phosphatase 63 U/L (39-117); Anion Gap 15 (12-20); Aspartate Amino Transferase 25 U/L (5-31); Bilirubin Total 0.8 mg/dL (0.0-1.0); Blood Urea Nitrogen 21 mg/dL (9-16); C Reactive Protein 0.25 mg/dL (< or = 0.50); Calcium 9.5 mg/dL (8.4-10.2); Carbon Dioxide 27 mmol/L (22-29); Chloride 102 mmol/L (96-108); Estimated Glomerular Filt Rate > 60; Glucose Random 192 mg/dL (60-115); Sodium 140 mmol/L (135-145)
[2024-10-23 08:13] LABS: HBS Num1 0.21 mIU/mL (0-7.99); HBc Num1 0.09 S/CO (0.00-0.79); HBsAGNum1 0.28 S/CO (0.00-0.99); Hepatitis A Antibody IgM 0.25 Index (0-0.79); Hepatitis B Core Antibody Nonreactive (Nonreactive); Hepatitis B Surface Antigen Negative (Negative); ~HepC Num1 0.09 S/CO (0.00-0.79); ~Hepatitis A Antibody IgM Nonreactive (Nonreactive); ~Hepatitis B Surface Antibody NONREACTIVE (Nonreactive); ~Hepatitis C Antibody Nonreactive (Nonreactive)
[2024-10-25 06:44] LABS: TS Negative Control Passed; TS Panel A 0; TS Panel B 0; TS Positive Control Passed; TSpotTB Negative (Negative)
== END 2024-10-22 11:22 | disposition home or self-care (01) ==
LOC: HO.LAB 11:21
PROVIDERS: PCP Internal Medicine; Visit Provider Student in an Organized Health Care Education/Training Program
DX: L40.50 Arthropathic psoriasis, unspecified (principal)
CPT/HCPCS: 36415; 80053; 85025; 85652; 86140; 86481; 86704; 86706; 86709; 86803; 87340

== ENCOUNTER 2024-10-30 11:06 | Outpatient (AMB) | payer MEDICARE, SELFPAY ==
--- NOTE | 2024-10-30 11:21 | MHC.OFFVIS ---
Vital Signs 10/30/24 11:33 Height 5 ft 4 in Weight 217 lb 6.012 oz BMI 37.3 BP 120/62 Blood Pressure Location Lt brachial Position Sitting Respiration 16 Pulse 77 Pulse Source Pulse Oximeter Pulse Oximetry (%) 97 Oxygen Delivery Method Room Air Intake Visit Reasons: PsA Intake Note: Patient presents for PsA follow up. 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 Bah. At that time she was following up for her psoriasis and psoriatic arthritis. She was on Orencia infusions. Her infusion dose was increased to 1000mg (weight based) but despite the increase she continued to have arthritic pains. There was no active synovitis on examination and her pains were attributed to generalized osteoarthritis. Unfortunately due to issues with the doses, has been getting 750mg instead of 1000mg Finally started the 1000mg 10/26/24 Doing well overall Intermittent pain and swelling Rheumatologic History: on orencia infusions since 2013 Initial history by Alana Craven Ms. Baum 78yoF presents for transfer of care from [place]. Per patient, she was diagnosed with PsA with PsO about 10 years, and was being treated with Orencia infusion. --psoriasis arthritis and PsO --last infusion Apr 28, 2023 --right elbow small scaly patch --hands mild swelling and moderate tenderness to thumbs and medial wrists. soreness to DIPs, achilles and knees --no GI or Uveiitis --pending bilateral knee surgeries after A1C controlled. Returns in January to reassess. Current Rheumatology Medication(s): Orencia infusion 1000 mg IV every 4 weeks [facility] Medical History Psoriasis Long-term use of immunosuppressant medication Lymph node abscess Hx of colonic polyp Post-menopausal Psoriatic arthritis Mixed hyperlipidemia Essential (primary) hypertension Type 2 diabetes mellitus with insulin therapy Surgical History H/O: knee surgery History of appendectomy History of tonsillectomy History of partial hysterectomy Family History Mother Cancer Father Abdominal aneurysm Social History Alcohol intake: never Patient Tobacco Use Status: Never used Tobacco Review of Systems Const Details: Review of Systems Constitutional: Denies fever, chills, weight loss ENT: Denies vision changes, eye pain or eye redness, dental caries, dry mouth GI: Denies nausea, vomiting, diarrhea, abdominal pain, change in BM Pulm: Denies SOB, FERNANDES, hemoptysis, wheezing Cards: Denies chest pain, palpitations Skin: Denies Raynaud's, rash, nail changes, photosensitivity, HEALTH AND FITNESS INSTRUCTOR: Denies headaches, weakness, paresthesias, recurrent falls MSK: as per HPI All other systems reviewed and are unremarkable except noted above Physical Exam Vital signs reviewed Physical Examination CONSTITUITIONAL Patient alert and cooperative. Well appearing and in no apparent painful distress HEENT Conjunctiva and sclera clear. ?Pupils equal round and reactive to light. ?No lymphadenopathy. ? CHEST/RESPIRATORY SYSTEM Normal respiratory effort and able to speak in complete sentences. ?Clear to auscultation bilaterally. ?No crackles, rales, rhonchi, wheezes heard. CARDIAC SYSTEM Regular rate and rhythm. ?S1 and S2 heard no murmurs. ?Radial pulses intact bilaterally MSK Hands: ?Able to make a fist. No synovitis noted to the MCPs, PIPs or DIPs. ?No tenderness to palpation of these joints. Herbeden's nodes. ? Wrists: ?Full range of motion at the wrists without pain. ?No tenderness to palpation or synovitis noted to the wrists. Elbows: Full range of motion without pain. No tenderness, weakness, swelling, increased warmth or erythema. Shoulders: Full range of active range of motion without pain. No tenderness, weakness, swelling, increased warmth or erythema. Knees: ?Full range of motion. ?No tenderness, swelling, increased warmth or erythema.?crepitations on the left Ankles: Full range of motion. ?No tenderness, swelling, increased warmth or erythema.? Feet: ?Negative squeeze test. ?No tenderness to palpation or swelling of the MTPs. Tender points:?No tenderness to palpation of the bilateral trapezius, supraspinatus, greater trochanters, anterior costochondral junctions, bilateral gluteal areas, bilateral suboccipital muscle insertions SKIN Skin intact without rashes. Results Reviewed Results Reviewed: Laboratory Tests 10/22/24 11:38 WBC 11.0 H RBC 4.89 Hgb 15.1 Hct 45.8 Plt Count 277 ESR 13 Sodium 140 Potassium 4.0 Chloride 102 Carbon Dioxide 27 BUN 21 H Creatinine 0.78 AST 25 ALT 20 Alkaline Phosphatase 63 C-Reactive Protein 0.25 Infectious serologies 10/22/24 11:38 Hepatitis A IgM Ab Nonreactive Hep Bs Antigen Negative Hep Bs Antibody NONREACTIVE Hep B Core Total Ab Nonreactive Hepatitis C Ab (EIA) Nonreactive TB Test (T-Spot) Com Negative Assessment & Plan Assessment & Plan (1) Psoriatic arthritis: Comment: on orencia infusions since 2013 Code(s): L40.50 - Arthropathic psoriasis, unspecified Category: Medical Plan: #PsO/PsA Patient is a 79-year-old female with psoriasis complicated by psoriatic arthritis on Orencia infusions here today for follow up. No evidence of active synovitis today Plan - Orencia 1000mg IV every 4 weeks - RTC 4 months - Labs before visit: CBC, CMP, ESR, CRP (2) On abatacept therapy: Code(s): Z79.899 - Other terminal gauger (current) drug therapy Plan: #Long-term Use of Abatacept Discussed with the patient the benefits and risks of Abatacept for the management of the rheumatic condition Benefits include reduce pain, maintenance of remission and reduction of flares as well as ?progression of the disease Risks include injection sites/infusion reactions, serious infections (such as bacterial infections, opportunistic infections), malignancy Recommended rotating injection sites, and holding medication during and for up to 1 week after resolution of a febrile illness or open skin wound Plan I spent 30 minutes reviewing the record and labs, taking a history, examining the patient, discussing the treatment plan, ordering diagnostic work up and documenting in the medical record Orders: Orders Comprehensive Met. Panel 4 Months L40.50 - Arthropathic psoriasis, unspecified Complete Blood Count Auto Diff 4 Months L40.50 - Arthropathic psoriasis, unspecified C Reactive Protein 4 Months L40.50 - Arthropathic psoriasis, unspecified Erythrocyte Sedimentation Rate 4 Months L40.50 - Arthropathic psoriasis, unspecified Coding Level of Care Code Est Pt Level 4 (71025) Complex EM visit Add On G2211 Diagnoses Psoriatic arthritis L40.50 On abatacept therapy Z79.899
[2024-10-30 11:33] VITALS: BP 120/62; PULSE 77; RESP 16; O2SAT 97; BMI 37.3
--- OUTSIDE RECORDS SUMMARY | 2024-10-30 12:58 | XMS_ITS | Encounter Summary ---
Author Organization [place] [address] Care Team Providers Care Shop Mechanic Name Role Phone Robert Shala Primary Care Provider [phone] Encounter Details Date Type Department Care Team (Late st Contact Info) Description 04/06/2022 Hospital Encounter TH HISTORIC ENCOUNTERS [facility]ASTERN CONVERSION ONLY Sophia Balderas MD [address] [facility] [address] [place] [address] Social History Tobacco Use Types [...] for your loved ones. For example, director child abuse therapy or elderly care for an older adult? [...] file Travel History Travel Start Travel End [place] 09/16/2024 10/17/2024 COVID-19 Exposure Response Date Recorded In the last 10 days, have yo u been in contact with someone who was confirmed or suspected to have Coronavirus/COVID-19? No / Unsure 12/23/2022 8:08 AM EDT documented as of this encounter Plan of Treatment Upcoming Encounters Date Type Department Care Team (Late st Contact Info) Description 11/29/2024 8:30 AM EDT Appointment [facility] Endoscopy [address] [place] [phone] Richelle Pritchard MD [address] [facility] [address] [place] [address] 12/11/2024 1:00 PM EDT Office Visit Orthopedic Surgery [place] [address] [phone] Cesar Le DPM [address] [address] 12/19/2024 7:45 AM EDT Office Visit Adult Medicine [address] [phone] Danny Dobson MD [address] [place] [address] 02/22/2025 10:20 AM EDT Appointment Radiology Department - [address] [phone] 04/18/2025 9:30 AM EDT Office Visit Orthopedic [place] [address] [phone] Quinton Saleem MD [address] [address] documented as of this encounter Goals Goal [...] on filedocumented in this encounter Care Teams Shop Mechanic Relationship Specialty Start Date End Date Shala Jones DO [address] [place] [address] PCP - General Internal Medicine 03/25/22 04/19/22 documented as of this encounter
--- OUTSIDE RECORDS SUMMARY | 2024-10-30 12:58 | XMS_ITS | Clinical Summary ---
Author Organization [facility] Address [address] [place] [address] Phone Care Team Providers Care Recycler Name Role Phone Danny Dobson MD Primary Care Provider Allergies Active Allergy Reactions Criticality Noted Date Comments Codeine Nausea Only 03/25/2022 Gabapentin Rash Low 06/07/2024 Medications diabetic supplies, [place]. [facility] Glucose Testing Supplies ( meter, test strips, lancing device, control solution, lancets, meter battery) TEST TWICE A DAY 1 each 3 01/21/20 23 Active abatacept (ORENCIA) 125 mg/mL injection Inject 8 mL (1,000 mg total) under the skin every 30 (thirty) days. Active cholecalcifero l, vitamin D3, 250 mcg (10,000 unit) tablet Take 250 mcg by mouth. Active aspirin 81 mg chewable tablet Chew 1 tablet (81 mg total). 04/24/20 24 Active acetaminophen (TYLENOL) 500 mg tablet Take 2 tablets (1,000 mg total) by mouth. 04/24/20 24 Active blood-glucose meter kit Glucose Testing Supplies ( meter, test strips, lancing device, control solution, lancets, meter battery) TEST TWICE A DAY 01/21/20 23 Active polyethylene glycol (Golytely) 236-22.74-6.74 -5.86 gram solution Take 4L by mouth once for one dose. May substitue any PEG. Starting at 6PM the night before your procedure drink 1 8oz glasses at your own pace until you complete half of the gallon. Finish 2nd half of the gallon 5 hours before your procedure. 4000 mL 07/11/19 25 Active bisacodyL (DULCOLAX) 5 mg EC tablet Take 2 tablets by mouth right before beginning bowel prep. See instructions provided by the office 2 tablet 07/11/19 25 Active pen needle, diabetic (BD Ultra-Fine Treasure Pen Needle) 32 gauge x needle Insulin administration 100 each 07/20/19 25 Active losartan (COZAAR) 100 mg tablet Take 1 tablet (100 mg total) by mouth 1 (one) time each day. 90 each 09/19/19 25 Active amLODIPine (NORVASC) 5 mg tablet Take 1 tablet (5 mg total) by mouth 1 (one) time each day. 90 each 09/19/19 25 Active empagliflozin (JARDIANCE) 25 mg tablet Take 1 tablet (25 mg total) by mouth 1 (one) time each day in the morning. 90 tablet 1 09/19/19 25 Active atorvastatin (LIPITOR) 10 mg tablet Take 1 tablet (10 mg total) by mouth 1 (one) time each day. 90 tablet 1 09/19/19 25 Active hydroCHLOROthi azide (HYDRODIURIL) 25 mg tablet Take 1 tablet (25 mg total) by mouth 1 (one) time each day. 90 each 09/19/19 25 Active levothyroxine (SYNTHROID, LEVOTHROID) 100 mcg tablet Take 1 tablet (100 mcg total) by mouth 1 (one) time each day before breakfast. 90 each 09/19/19 25 025 Active metFORMIN (GLUCOPHAGE) 1,000 mg tablet Take 1 tablet (1,000 mg total) by mouth 2 (two) times a day with meals. 180 tablet 1 09/19/19 25 Active insulin glargine (Lantus U-100 Insulin) 100 unit/mL injection Inject 30 Units under the skin at bedtime. 30 mL 09/19/19 25 026 Active insulin syringe-needle U-100 1 mL 31 gauge x 516 syringe USE TO INJECT INSULIN ONCE DAILY DIRECTED 100 each 09/19/19 25 Active blood sugar diagnostic (True Metrix Glucose Test Strip) test strip Use as instructed 100 each 09/26/19 25 Active ibuprofen (ADVIL,MOTRIN) 600 mg tablet Take 1 tablet (600 mg total) by mouth every 6 (six) hours if needed for mild pain or moderate pain for up to 10 days. 30 tablet 10/19/19 25 025 Active Problems Problem Noted Date Diagnosed Date Status post total right knee replacement 024 Diabetes mellitus with hyper glycemia, with long-term current use of insulin ([facility] V24, [facility] V28) 04/02/2024 Overview (04/02/2024): Uncontrolled Degenerative lumbar spinal stenosis 10/31/2023 Primary osteoarthritis of left knee 10/31/2023 Post-traumatic osteoarthritis of right knee 10/03 Psoriasis 10/28/2023 Hypertension 03/25/2023 Assessment & Plan (03/25/2023 9:26 AM EDT): Continue with BP meds Hyperlipidemia 03/25/2023 Type 2 diabetes mellitus, wi thout long-term current use of insulin ([facility] V24, [facility] V28) 03/25/2023 Assessment & Plan (03/25/2023 9:25 AM EDT): Continue with current meds Hypothyroidism 03/25/2023 Assessment & Plan (03/25/2023 9:25 AM EDT): continue with levothyroxine Rheumatoid arthritis ([facility] V24, [facility] V28) 03/25/2023 Complete tear of [...] great toe, left 03/25/2022 09/15/2022 Diabetes mellitus ([facility] V24, [facility] V28) 09/15/2022 Diabetic peripheral neuropat hy ([facility] V24, [facility] V28) 03/25/2022 09/15/2022 Fatigue 03/25/2022 09/15/2022 Foot pain 03/25/2022 09/15/2022 Fracture of phalanx of toe 03/25/2022 0 09/15/2022 Hyperlipidemia associated wi th type 2 diabetes mellitus ([facility] V24, [facility] V28) 03/25/2022 09/15/2022 Hyperlipidemia 03/25/2022 [...] obesity with BMI of 4 0.0-44.9, adult ([facility] V24, [facility] V28) 03/25/2022 09/15/2022 Encounters Date Type Department Care Team Description 10/17/2024 5:57 PM EDT - 10/18/2024 3:53 AM EDT Emergency [facility] Emergency [address] [place] [phone] Chest pain, unspecified type (Primary Dx) Discharge Disposition: Home or Self Care 10/10/2024 10:36 AM EDT - 10/10/2024 11:59 PM EDT Hospital Encounter [facility] Ultrasound [address] [place] [phone] Congenital multiple renal cysts Discharge Disposition: Home or Self Care 09/18/2024 7:45 AM EDT Office Visit Adult Medicine [address] [phone] Danny Dobson MD Hypothyroidism, unspecified type (Primary Dx); Hypertension, unspecified type; Type 2 diabetes mellitus with hyperglycemia, with long-term current use of insulin ([facility] V24, [facility] V28); Class 2 severe obesity due to excess calories with serious comorbidity and body mass index (BMI) of 37.0 to 37.9 in adult ([facility] V24, [facility] V28) 09/07/2024 1:44 PM EST - 09/07/2024 11:59 PM EST Hospital Encounter [facility] MRI [address] [place] [phone] Lumbar radiculopathy Discharge Disposition: Home or Self Care 08/13/2024 Telephone Orthopedic Surgery - [place] [address] [facility] [address] [place] [phone] Christina Lindo from Last 3 Months Immunizations Name Administration [...] WISDOM TEETH EXTRACTION KNEE ARTHROSCOPY Bilateral PROCEDURE: GA ARTHROSCOPY KNEE DIAGNOSTIC W/WO SYNOVIAL BX SPX; COMMENT: in [place] OTHER SURGICAL HISTORY PROCEDURE: HISTORY OTHER; COMMENT: Brain aneurysm- coils placed- in [facility] in september 2022 BREAST BIOPSY Left PROCEDURE: BX BREAST; PERC NEEDLE CORE W/IMAG GUID; COMMENT: yrs ago-benign Medical History Medical History Date Comments Diabetes ([facility] V24, [facility] V28) HTN (hypertension) Hyperlipidemia Diabetes mellitus ([facility] V 24, [facility] V28) 03/25/2022 Diabetic peripheral neuropat hy ([facility] V24, [facility] V28) 03/25/2022 Hypertension 03/25/2022 Primary osteoarthritis of fi rst carpometacarpal joint of left hand 03/25/2022 Vitamin D deficiency 03/25/2022 Anxiety 03/25/2022 Morbid obesity with BMI of 4 0.0-44.9, adult ([facility] V24, [facility] V28) 03/25/2022 Hypothyroidism 03/25/2022 Brain [...] for your loved ones. For example, child care giver or elderly care for an older adult? [...] file Travel History Travel Start Travel End [place] 09/16/2024 10/17/2024 Obstetrics History Last Filed Vital [...] Info) Description 11/29/2024 8:30 AM EDT Appointment [facility] Endoscopy [address] [place] [phone] Richelle Pritchard MD 175 [facility] [address] [place] [address] 12/11/2024 1:00 PM EDT Office Visit Orthopedic Surgery - [place] [address] [phone] Cesar Le DPM [address] [address] 12/19/2024 7:45 AM EDT Office Visit Adult Medicine [facility] [address] [place], [place] [phone] Danny Dobson MD [address] [place], [place] 02/22/2025 10:20 AM EDT Appointment Radiology Department - [address] [phone] 04/18/2025 9:30 AM EDT Office Visit Orthopedic Surgery - [place] [address] [phone] Quinton Saleem MD [address] [phone] Health Maintenance Due Date Last Done Comments RSV Immunization Adult Patients (1 - 1-dose 75+ series) 2021 Hepatitis C Screening 01/09/2022 COVID-19 Vaccine (8 - Pfizer risk season) 2024 03/20/2024, 05/17/2023, 03/16/2022, Additional history [...] strengthening. (Met). Medical Devices Implanted Type Area Bumboater Device Identifier Shelf Expiration Date Model / Serial / Lot Cath Iv Nexiva 20ga 1.25in - [id number] - [id number] Implanted:Qt y: 1 on 09/07/2022 at [facility] Central/Perip heral Catheters and Ports Right: Arm ibabybox SYSTEM [id number] 05/03/2025 [id number] / [id number] / [id number] Coil Axium 3d [id number] Qc - [id number] - [id number] Implanted:Qt y: 1 on 09/14/2022 by Erickson Mckeon MD at [facility] Embolectomy Implants Right: Cerebrum [employer] - EV3 FKA COVD-EV3 [id number] 08/29/2023 QC-2-4- 3D / [id number] / [id number] Coil Axium 3d 3.5mm X 6cm Implanted:Qt y: 1 on 09/14/2022 by Erickson Mckeon MD at [facility] Embolectomy Implants Right: Brain [employer] - EV3 FKA COVD-EV3 08/20/2023 QC-3.5- 6-3D / [id number] / Stent Nf Atlass 3.0x21mm No Tip - [id number] - [id number] Implanted:Qt y: 1 on 09/14/2022 by Erickson Mckeon MD at [facility] Peripheral Vasc Bare Metal Stents Right: Cerebrum [facility] [id number] 03/29/2026 [id number] / [id number] / System Perclose Prostyle Suture Medicated - [id number] - [id number] Implanted:Qt y: 1 on 09/07/2022 at [facility] Vascular Closure Devices Right: Groin [employer] [facility] [id number] 05/03/2024 25574-3 3 / [id number] / F8 System Perclose Prostyle Suture Medicated - [id number] - [id number] Implanted:Qt y: 1 on 09/14/2022 by Erickson cMkeon MD at [facility] Vascular Closure Devices Right: Groin [employer] [employer] [id number] 05/03/2024 72961-9 3 / / System Perclose Prostyle Suture Medicated - [id number] - [id number] Implanted:Qt y: 1 on 03/11/2023 by Lee Egan MD at [facility] Vascular Closure Devices Right: Groin [employer] [facility] [id number] 10/31/2024 12285-7 3 / [id number] / [id number] Procedures Procedure Name Priority Date/Time Associated Diagnosis [...] use of insulin (CMS/HCC V24, CMS/HCC V28) MICROALBUMIN CREATININE URINE RATIO Routine 09/12/2024 7:56 AM EDT Type 2 diabetes mellitus without complication, with long-term current use of insulin (CMS/HCC V24, CMS/HCC V28) MR LUMBAR SPINE WO AND W CONTRAST Routine 09/07/2024 3:12 PM EST Lumbar radiculopathy COLONOSCOPY Routine 07/25/2024 9:06 AM EST Personal history of colon polyps, unspecified BD BONE DENSITY DXA APPENDICULAR SKELETON Routine 07/10/2024 11:24 AM EST Asymptomatic menopausal state HM DEPRESSION SCREENING Routine 02/17/2024 HM FALLS RISK ASSESSMENT Routine 02/17/2024 from Last [...] by: Kavitha Hallman MD on 10/18/2024 01:24:11 Lucina TOLLIVER IMG US PROCEDURES Final Result * ECG-Annotated (10/18/2024) Provider Onbase ECG ORDERABLES Final Result * (ABNORMAL) POCT Glucose, blood (10/17/2024 10:46 PM EDT) Only the most recent of2 resultswithin the time period is included. [facility] Signature Glucose POCT 191(H) 70 - 100 mg/dL 10/17/2024 10:48 PM EDT [facility] Blood Capillary blood specimen / Unknown 10/17/2024 10:46 PM EDT 10/17/2024 10:49 PM EDT Generic Provider Poct LAB POINT OF CARE TEST DOCKED DEVICE UNSOLICITED RESULTS Final Result [facility] [address] [place] [address], [place] [phone] * CT Angio Chest wo and/or w [...] of2 resultswithin the time period is included. Ventricular Rate ECG 74 BPM GEMUSE Atrial Rate 74 BPM GEMUSE P-R Interval 162 ms GEMUSE QRS Duration 94 ms GEMUSE Q-T Interval 412 ms GEMUSE QTc 457 ms GEMUSE P Wave Will[place] 32 degrees GEMUSE R Willits -49 degrees GEMUSE T Willits 43 degrees GEMUSE ECG Interpretation Normal sinus rhythm Left anterior fascicular block Abnormal ECG When compared with ECG of 17-OCT-2024 17:32, No significant change was found Confirmed by DONNA MARTIN ([id number]) on 10/18/2024 6:22:31 PM GEMUSE 10/17/2024 8:14 PM EDT 10/18/2024 6:22 PM EDT Marlon Whitaker MD ECG ORDERABLES Final Resul t Performing Organization Address City/[facility]/ZIP Co de Phone Number GEMUSE * Troponin I high sensitivity (10/17/2024 8:14 PM EDT) Only the most recent of2 resultswithin the time period is included. [facility] High Sensitivity Troponin I 7 <=54 ng/L LAB CHEMISTRY METHOD 10/17/2024 9:02 PM EDT [facility] Blood Venous blood specimen / Unknown Venipuncture / Unknown 10/17/2024 8:14 PM EDT 10/17/2024 8:23 PM EDT Narrative [facility] - 10/17/2024 9:02 PM EDT High levels of biotin in samples may falsely decrease hsTroponin values. ??Use caution when interpreting hsTroponin results in patients taking biotin who exhibit renal impairment (eGFR <60) or in patients taking more than 20 mg/day of biotin. Marlon Whitaker MD LAB BLOOD ORDERABLES Final Result Performing Organization Address [facility] de Phone Number [facility] [address] [place] [address], [place] [phone] * (ABNORMAL) CBC auto differential (10/17/2024 7:13 PM EDT) [facility] WBC 12.9(H) 4.8 - 10.8 K/mcL LAB HEMETOLOGY METHOD 10/17/2024 7:51 PM EDT [facility] RBC 5.10(H) 3.80 - 4.80 M/mcL LAB HEMETOLOGY METHOD 10/17/2024 7:51 PM [facility] Hemoglobin 15.9 11.5 - 16.0 g/dL LAB HEMETOLOGY METHOD 10/17/2024 7:51 PM [facility] Hematocrit 47.7(H) 35.0 - 47.0 % LAB HEMETOLOGY METHOD 10/17/2024 7:51 PM [facility] MCV 93.3 79.0 - 98.0 FL LAB HEMETOLOGY METHOD 10/17/2024 7:51 PM [facility] MCH 31.1 27.0 - 32.0 pcg LAB HEMETOLOGY METHOD 10/17/2024 7:51 PM [facility] MCHC 33.3 32.0 - 37.0 g/dL LAB HEMETOLOGY METHOD 10/17/2024 7:51 PM [facility] RDW 14.5 11.0 - 15.0 % LAB HEMETOLOGY METHOD 10/17/2024 7:51 PM [facility] Platelets 309 130 - 400 K/mcL LAB HEMETOLOGY METHOD 10/17/2024 7:51 PM [facility] MPV 11.2(H) 7.0 - 11.0 FL LAB HEMETOLOGY METHOD 10/17/2024 7:51 PM [facility] NRBC 0.0 <1.0 % LAB HEMETOLOGY METHOD 10/17/2024 7:51 PM [facility] NRBC Absolute 0.00 <0.10 K/mcL LAB HEMETOLOGY METHOD 10/17/2024 7:51 PM [facility] Neutrophils Relative 73.6 % LAB HEMETOLOGY METHOD 10/17/2024 7:51 PM [facility] Lymphocytes Relative 18.8 % LAB HEMETOLOGY METHOD 10/17/2024 7:51 PM T [facility] Monocytes Relative 6.3 % LAB HEMETOLOGY METHOD 10/17/2024 7:51 PM [facility] Eosinophils Relative 0.4 % LAB HEMETOLOGY METHOD 10/17/2024 7:51 PM [facility] Basophils Relative 0.4 % LAB HEMETOLOGY METHOD 10/17/2024 7:51 PM [facility] Immature Granulocytes Relative 0.5 % LAB HEMETOLOGY METHOD 10/17/2024 7:51 PM [facility] Neutrophils Absolute 9.51(H) 1.50 - 7.00 K/mcL LAB HEMETOLOGY METHOD 10/17/2024 7:51 PM [facility] Lymphocytes Absolute 2.43 1.00 - 5.00 K/mcL LAB HEMETOLOGY METHOD 10/17/2024 7:51 PM [facility] Monocytes Absolute 0.82 0.20 - 1.00 K/mcL LAB HEMETOLOGY METHOD 10/17/2024 7:51 PM [facility] Eosinophils Absolute 0.05 0.00 - 0.50 K/mcL LAB HEMETOLOGY METHOD 10/17/2024 7:51 PM [facility] Basophils Absolute 0.05 0.00 - 0.20 K/mcL LAB HEMETOLOGY METHOD 10/17/2024 7:51 PM [facility] Immature Granulocytes Absolute 0.06(H) 0.00 - 0.03 K/mcL LAB HEMETOLOGY METHOD 10/17/2024 7:51 PM [facility] Blood Venous blood specimen / Unknown Venipuncture / Unknown 10/17/2024 7:13 PM EDT 10/17/2024 7:41 PM EDT us Marlon Whitaker MD LAB BLOOD ORDERABLES Final Result Performing Organization Address [facility]/ZIP Co de Phone Number [facility] [address] [place] [address], [place] [phone] * B-type natriuretic peptide (10/17/2024 7:13 PM EDT) BNP 20 <=100 pcg/mL LAB CHEMISTRY METHOD 10/17/2024 8:21 PM EDT [facility] Blood Venous blood specimen / Unknown Venipuncture / Unknown 10/17/2024 7:13 PM EDT 10/17/2024 7:41 PM EDT Marlon Whitaker MD LAB BLOOD ORDERABLES Final Result Performing Organization Address [facility] de Phone Number [facility] [address] [place] [address], * Magnesium (10/17/2024 7:13 PM EDT) Pathologist [facility] Magnesium 2.6 1.9 - 2.6 mg/dL LAB CHEMISTRY METHOD 10/17/2024 8:19 PM EDT [facility] Blood Venous blood specimen / Unknown Venipuncture / Unknown 10/17/2024 7:13 PM EDT 10/17/2024 7:41 PM EDT Marlon Whitaker MD LAB BLOOD ORDERABLES Final Result Performing Organization Address [facility]/ZIP Co de Phone Number [facility] [address] [place] [address], [place] [phone] * Lipase (10/17/2024 7:13 PM EDT) Lipase 22 13 - 75 unit/L LAB CHEMISTRY METHOD 10/17/2024 8:19 PM EDT [facility] Blood Venous blood specimen / Unknown Venipuncture / Unknown 10/17/2024 7:13 PM EDT 10/17/2024 7:41 PM EDT us Marlon Whitaker MD LAB BLOOD ORDERABLES Final Result [facility] [address] [place] [address], [place] [phone] * (ABNORMAL) Comprehensive metabolic panel (10/17/2024 7:13 PM EDT) Only the most recent of2 resultswithin the time period is included. Sodium 134 133 - 145 mmol/L LAB CHEMISTRY METHOD 10/17/2024 8:22 PM [facility] Potassium 3.9 3.5 - 5.5 mmol/L LAB CHEMISTRY METHOD 10/17/2024 8:22 PM [facility] Chloride 100 96 - 110 mmol/L LAB CHEMISTRY METHOD 10/17/2024 8:22 PM [facility] CO2 27 21 - 32 mmol/L LAB CHEMISTRY METHOD 10/17/2024 8:22 PM [facility] Anion Gap 7 3 - 11 LAB CHEMISTRY METHOD 10/17/2024 8:22 PM [facility] Glucose 190(H) 70 - 100 mg/dL LAB CHEMISTRY METHOD 10/17/2024 8:22 PM [facility] BUN 26(H) 5 - 25 mg/dL LAB CHEMISTRY METHOD 10/17/2024 8:22 PM [facility] Creatinine 0.82 0.50 - 1.10 mg/dL LAB CHEMISTRY METHOD 10/17/2024 8:22 PM [facility] eGFR 73 >=60 mL/min/1. 73m2 LAB CHEMISTRY METHOD 10/17/2024 8:22 PM [facility] Comment:Calculation based on the??Chronic Kidney Disease Epidemiology Collaboration (CKD-EPI) equation refit??without adjustment for race. BUN/Creatinine Ratio 31.7 LAB CHEMISTRY METHOD 10/17/2024 8:22 PM EDT [facility] Calcium 9.4 8.5 - 10.5 mg/dL LAB CHEMISTRY METHOD 10/17/2024 8:22 PM EDT [facility] AST (SGOT) 13 10 - 42 unit/L LAB CHEMISTRY METHOD 10/17/2024 8:22 PM EDT [facility] ALT (SGPT) 26 10 - 60 unit/L LAB CHEMISTRY METHOD 10/17/2024 8:22 PM [facility] Alkaline Phosphatase 72 42 - 121 unit/L LAB CHEMISTRY METHOD 10/17/2024 8:22 PM [facility] Total Protein 7.6 6.0 - 8.0 g/dL LAB CHEMISTRY METHOD 10/17/2024 8:22 PM EDT [facility] Albumin 4.4 3.2 - 5.0 g/dL LAB CHEMISTRY METHOD 10/17/2024 8:22 PM [facility] Total Bilirubin 0.7 0.0 - 1.4 mg/dL LAB CHEMISTRY METHOD 10/17/2024 8:22 PM [facility] Blood Venous blood specimen / Unknown Venipuncture / Unknown 10/17/2024 7:13 PM EDT 10/17/2024 7:41 PM EDT us Marlon Whitaker MD LAB BLOOD ORDERABLES Final Result [facility] [address] [place] [address], * XR Chest 2 Views (10/17/2024 6:24 PM EDT) Anatomical Region Laterality Modality Body Radiographic Estela ging 10/18/2024 9:08 AM EDT Impressions 10/18/2024 9:09 AM EDT No acute findings. -------- FINAL REPORT -------- Dictated By: Ashish Meade Dictated Date: 10/18/2024 09:08 ET Assigned Physician: Ashish Meade Reviewed and Electronically Signed By: Ashish Meade Signed Date: 10/18/2024 09:09 ET Workstation ID: [id number] Transcribed By: Self Edit Transcribed Date: 10/18/2024 [...] Signed Date: 10/18/2024 09:09 ET Workstation ID: [id number] Transcribed By: Self Edit Transcribed Date: 10/18/2024 [...] Signed Date: 10/10/2024 14:24 ET Workstation ID: [id number] Transcribed By: Self Edit Transcribed Date: 10/10/2024 [...] Signed Date: 10/10/2024 14:24 ET Workstation ID: [id number] Transcribed By: Self Edit Transcribed Date: 10/10/2024 14:19 ET us Renaldo TOLLIVER IMG US PROCEDURES Final Result * Lipid panel with reflex to direct LDL (09/12/2024 7:56 AM EDT) Cholesterol 141 0 - 200 mg/dL LAB CHEMISTRY METHOD 09/12/2024 10:12 AM EDT [facility] Triglycerides 131 0 - 150 mg/dL LAB CHEMISTRY METHOD 09/12/2024 10:12 AM EDT [facility] HDL 61 >=40 mg/dL LAB CHEMISTRY METHOD 09/12/2024 10:12 AM EDT [facility] LDL Calculated 54 0 - 100 mg/dL LAB CHEMISTRY METHOD 09/12/2024 10:12 AM EDT [facility] VLDL Cholesterol Aiden 26.2 mg/dL LAB CHEMISTRY METHOD 09/12/2024 10:12 AM EDT [facility] Non HDL Chol. (LDL+VLDL) 80 <145 mg/dL LAB CHEMISTRY METHOD 09/12/2024 10:12 AM EDT [facility] Chol/HDL Ratio 2.3 0.0 - 4.4 LAB CHEMISTRY METHOD 09/12/2024 10:12 AM EDT [facility] Blood Venous blood specimen / Unknown Venipuncture / Unknown 09/12/2024 7:56 AM EDT 09/12/2024 7:56 AM EDT us Danny Dobson MD LAB BLOOD ORDERABLES Final Result [facility] [address] [place] [address], [place] [phone] * Microalbumin creatinine urine ratio (09/12/2024 7:56 AM EDT) Creatinine, Urine 66.0 mg/dL LAB CHEMISTRY METHOD 09/12/2024 10:45 AM EDT [facility] Microalb, Ur 15.9 0.0 - 29.0 mg/L LAB CHEMISTRY METHOD 09/12/2024 10:45 AM EDT [facility] Microalb/Creat Ratio 24 <30 mg/g creat LAB CHEMISTRY METHOD 09/12/2024 10:45 AM EDT [facility] Urine Urine specimen obtained by clean catch procedure / Unknown Non-blood Collection / Unknown 09/12/2024 7:56 AM EDT 09/12/2024 7:56 AM EDT us Danny Dobson MD LAB URINE ORDERABLES Final Result Performing Organization Address City/[facility]/ZIP Co de Phone Number [facility] [address] [place] [address], [place] [phone] * (ABNORMAL) Hemoglobin A1c (09/12/2024 7:56 AM EDT) Hemoglobin A1C 8.0(H) <6.5 % LAB CHEMISTRY METHOD 09/12/2024 1:55 PM EDT [facility] Mean Bld Glu Estim. 183 mg/dL LAB CHEMISTRY METHOD 09/12/2024 1:55 PM EDT [facility] Blood Venous blood specimen / Unknown Venipuncture / Unknown 09/12/2024 7:56 AM EDT 09/12/2024 7:56 AM EDT us Danny Dobson MD LAB BLOOD ORDERABLES Final Result [facility] [address] [place] [address], [place] [phone] * MR Lumbar Spine wo and w [...] Signed Date: 09/07/2024 15:26 ET Workstation ID: [id number] Transcribed By: Self Edit Transcribed Date: 09/07/2024 [...] Signed Date: 09/07/2024 15:26 ET Workstation ID: [id number] Transcribed By: Self Edit Transcribed Date: 09/07/2024 15:19 ET [facility] Final Resul t * COLONOSCOPY Anesthesia - MAC; [facility] ENDOSCOPY (07/25/2024 9:06 AM EST) Anatomical Region [...] was suboptimal. Narrative 07/25/2024 9:07 AM EST [facility] GI Patient Name: Kalyn Baum Procedure Date: [...] verified by the physician, the nurse, the venetian blind maker ? and the safety technician in the pre-procedure area in the ? [...] history of colonic polyps CPT copyright 2020 [employer]. All rights reserved. The codes documented in this report are preliminary and upon ux design manager review may be revised to meet current compliance requirements. Richelle Pritchard MD 07/25/2024 9:07:34 AM This report has been signed electronically.Richelle Pritchard MD Number of Addenda: 0 Note Initiated On: 07/25/2024 8:53 AM Scope In: 9:01:38 AM Scope Out: 9:04:21 AM ? Endoscopy Department at [facility] - [address] [place] [address], ? [place] [address] Procedure Note Richelle Pritchard MD - 07/25/2024 [facility] GI Patient Name: Kalyn Baum Procedure Date: [...] the physician, the nurse, theanesthetist and the safety technician in the pre-procedure area in the procedure [...] history of colonic polyps CPT copyright 2020 [employer]. All rights reserved. The codes documented in this report are preliminary and upon ux design manager reviewmay be revised to meet current compliance requirements. Richelle Pritchard MD 07/25/2024 9:07:34 AM This report has been signed electronically.Richelle Pritchard MD Number of Addenda: 0 Note Initiated On: 07/25/2024 8:53 AM Scope In: 9:01:38 AM Scope Out: 9:04:21 AM Endoscopy Department at [address] [address] IMPRESSION: - Preparation of the colon was poor. - Stool in the entire examined colon. - No specimens collected. Recommendation: - Discharge patient to home. - Repeat colonoscopy at the next availableappointment because the bowel preparation was suboptimal. Richelle Pritchard MD GI~PROCEDURE ORDERABLES Fin al [...] Signed Date: 07/10/2024 20:05 ET Workstation ID: [id number] Transcribed By: Self Edit Transcribed Date: 07/10/2024 20:03 ET Narrative 07/10/2024 8:05 PM EST STUDY: ??DUAL ENERGY X-RAY ABSORPTIOMETRY / DXA REASON FOR EXAM: ?? Female, 79 years old ??Z78.0 TECHNIQUE: ?? Bone Mineral Density (BMD) measurements of the lumbar spine and left hip were obtained using [employer] Discovery W (S/N 11514). ?? COMPARISON: None ?? FINDINGS: L1-L3 BMD: [...] lumbar spineand left hip were obtained using [employer] W (S/N [id number]). COMPARISON: None FINDINGS: L1-L3 BMD: 1.389 g/cm2 [...] Signed Date: 07/10/2024 20:05 ET Workstation ID: [id number] Transcribed By: Self Edit Transcribed Date: 07/10/2024 20:03 ET Samira Tiwari MD IMG DXA PROCEDURES Fin al Result * Falls Risk Assessment (02/17/2024) Pathologist [facility] Falls Risk Assessment Abstracted Historical Provider HEALTH MAINTENANCE Final Result * Depression Screening (02/17/2024) Pathologist [facility] Depression Screening Abstracted Historical Provider HEALTH MAINTENANCE Final Result from Last 3 Months or Most Recently Relevant to Health Maintenance Insurance MEDICARE AARP Advance Directives Documents on File Type Date Recorded Patient Checkman Expl anation Health Care Decision (hx) 04/26/2024 [...] currently active code status orders. Care Teams Recycler Relationship Specialty Start Date End Date Danny Dobson MD [address] [place] [address] PCP - General 02/17/24
== END 2024-10-30 12:09 | disposition home or self-care (01) ==
LOC: HO.RHE 11:06
PROVIDERS: PCP Family Medicine; Visit Provider Student in an Organized Health Care Education/Training Program
DX: L40.50 Arthropathic psoriasis, unspecified (principal); Z79.899 Other long term (current) drug therapy
CPT/HCPCS: 99214; G2211

== ENCOUNTER → 2024-10-30 11:06 | Outpatient (BNVA) | payer MEDICARE, SELFPAY | PROVIDERS: PCP Family Medicine; Visit Provider Student in an Organized Health Care Education/Training Program | DX: L40.50 Arthropathic psoriasis, unspecified (principal); Z79.899 Other long term (current) drug therapy | CPT/HCPCS: 99212 ==

== ENCOUNTER 2025-03-18 10:27 | Outpatient (REF) | payer MEDICARE, SELFPAY ==
--- OUTSIDE RECORDS SUMMARY | 2022-04-06 | XMS_ITS | Encounter Summary ---
[facility] [place] [address] Care Team Providers Care Workforce Staffing Advisor Name Role Phone Robert Shala MCKAY Primary Care Provider [phone] Encounter Details Date Type Department Care Team (Late st Contact Info) Description 04/06/2022 Hospital Encounter TH HISTORIC ENCOUNTERS EASTERN CONVERSION ONLY Sophia Balderas MD [address] [facility] 2nd [place] [address] Social History Tobacco Use Types [...] care for your loved ones. For example, child welfare assistant or elderly care for an older adult? [...] Upcoming Encounters Date Type Department Care Team ([facility] st Contact Info) Description 03/21/2025 10:00 AM EDT Office Visit Adult Medicine [address] [phone] Danny Dobson MD [address] [place] [address] 04/18/2025 9:30 AM EDT Office Visit Orthopedic Surgery [place] [address] [phone] Quinton Saleem MD [address] [address] 06/12/2025 1:00 PM EST Office Visit Orthopedic Surgery [place] [address] [phone] Cesar Le, DPM [address] [address] documented as of this encounter Goals Goal Patient Goal Type Associated Problems Recent Progress Patient-Stated? Author HP Ensure safe transition of care General On track( 023 2:27 PM EDT) No Gladys Lara, RN LTG's 12 visits General Yes Travis [...] on filedocumented in this encounter Care Teams Workforce Staffing Advisor Relationship Specialty Start Date End Date Shala Jones DO PCP - General Internal Medicine 03/25/22 04/19/22 documented as of this encounter
[2025-03-18 10:39] LABS: MANUAL DIFF FLAG NO
[2025-03-18 11:14] LABS: Hematocrit 45.1 % (37.0-47.0); Hemoglobin 15.1 g/dl (12.0-16.0); Imm Gran Abs Auto 0.05 X10*3/uL (0.00-0.03); Imm Gran Pct Auto 0.5 % (0.0-0.4); Lymphocytes Absolute Auto 2.3 X10*3/uL (1.2-4.9); Mean Corpuscular HGB Conc 33.5 g/dl (31.0-35.0); Mean Corpuscular Hemoglobin 31.1 pg (27.0-33.0); Mean Corpuscular Volume 93.0 fL (80.0-98.0); NRBC Abs Auto 0.000 X10*3/uL (0.0-0.012); NRBC Pct Auto 0.0 /100WBC (0.0-0.2); Platelet Count 233 X10*3/uL (160-400); Red Blood Count 4.85 X10*6/uL (4.20-5.50); White Blood Count 10.5 X10*3/uL (4.8-10.8)
[2025-03-18 12:10] LABS: Alanine Aminotransferase 19 U/L (0-31); Albumin Level 4.5 g/dL (3.5-5.0); Alkaline Phosphatase 66 U/L (39-117); Anion Gap 13 (12-20); Aspartate Amino Transferase 23 U/L (5-31); Blood Urea Nitrogen 22 mg/dL (9-16); Calcium 9.4 mg/dL (8.4-10.2); Carbon Dioxide 29 mmol/L (22-29); Chloride 102 mmol/L (96-108); Estimated Glomerular Filt Rate > 60; Potassium 3.9 mmol/L (3.3-5.1); Sodium 140 mmol/L (135-145); Total Protein 7.1 g/dL (6.5-8.0)
--- OUTSIDE RECORDS SUMMARY | 2025-03-18 13:23 | XMS_ITS | Encounter Summary ---
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 For example, child support specialist or elderly care for an older adult? [...] Physical Abuse 11/29/2024 Verbal Abuse 11/29/2024 Comments No Sex and Gender Information Value Date Recorded Sex Assigned at Female 06/09/2022 11:33 AM EST Legal Sex Female 12:39 PM EDT Gender Identity Female 06/09/2022 11:33 AM EST Sexual Orientation Not on file documented as of this encounter Progress Notes * Diana Yarbrough RN - 03/06/2025 11:19 AM EDT Called [facility] to verify issues with glucose supplies and testing device documented in this encounter Plan of Treatment Upcoming Encounters Date Type Department Care Team (Late st Contact Info) Description 03/21/2025 10:00 AM EDT Office Visit [place] Medicine [facility] [place] [address] [place] [phone] Danny Dobson MD [address] [place] [address] 04/18/2025 9:30 AM EDT Office Visit Orthopedic [place] [id number] [phone] Quinton Saleem MD [address] [address] 06/12/2025 1:00 PM EST Office Visit Orthopedic [place] [address] [phone] Cesar Le DPM [address] [phone] documented as of this encounter Goals Goal [...] Diagnoses Not on filedocumented in this encounter Additional Health Concerns Assessment Noted Time PHQ-9 Depression Total Score: 0 09/12/19 25 11:56 AM EDT documented as of this encounter Care Teams Roller Mill Operator Relationship Specialty Start Date End Date Danny Dobson MD [address] [place] [address] PCP - General 02/17/24 documented as of this encounter
--- OUTSIDE RECORDS SUMMARY | 2025-03-18 13:23 | XMS_ITS | Clinical Summary ---
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 [place] Glucose Testing [...] 1 tablet (81 mg total). 4 Active metFORMIN (GLUCOPHAGE) 1,000 mg tablet Take 1 tablet (1,000 mg total) by mouth 2 (two) times a day with meals. 180 tablet 1 5 Active Lantus U-100 Insulin 100 unit/mL injectionIndic ations:Type 2 diabetes mellitus with other specified complication, without long-term current use of insulin (CMS/[facility] V24, CMS/HCC V28) INJECT 30 UNITS SUBCUTANEOUSLY AT BEDTIME 40 mL 3 5 Active insulin syringe-needle U-100 1 mL 31 gauge x /16 syringe USE TO INJECT INSULIN ONCE DAILY DIRECTED 100 each 1 5 Active amLODIPine (NORVASC) 5 mg tablet Take 1 tablet (5 mg total) by mouth 1 (one) time each day. 90 each 1 5 Active atorvastatin (LIPITOR) 10 mg tablet Take 1 tablet (10 mg total) by mouth 1 (one) time each day. 90 tablet 1 5 Active hydroCHLOROthi azide (HYDRODIURIL) 25 mg tablet Take 1 tablet (25 mg total) by mouth 1 (one) time each day. 90 each 1 5 Active empagliflozin (JARDIANCE) 25 mg tablet Take 1 tablet (25 mg total) by mouth 1 (one) time each day in the morning. 90 tablet 1 5 Active losartan (COZAAR) 100 mg tablet Take 1 tablet (100 mg total) by mouth 1 (one) time each day. 90 each 1 5 Active levothyroxine (SYNTHROID, LEVOTHROID) 100 mcg tablet Take 1 tablet (100 mcg total) by mouth 1 (one) time each day. before breakfast 30 tablet 2 5 Active diclofenac (VOLTAREN) 1 % topical gel Apply 2 gram four times daily to affected joint 100 g 5 Active glucose blood test stripIndicatio ns:Diabetes Check blood glucose twice daily 100 strip 6 5 Active lancets lancetsIndicat ions:Diabetes Use to check blood glucose twice daily 100 each 1 5 Active blood-glucose meter kit Use daily or as directed for monitoring of diabetes. 1 each 5 026 Active Active Problems Problem Noted Date Diagnosed Date Stenosis of right carotid artery 12/19/2024 Psoriatic arthritis ([facility] V24, [facility] V28) 0 12/19/2024 Status post total right knee replacement 024 Diabetes mellitus with hyper glycemia, with long-term current use of insulin ([facility] V24, [facility] V28) 04/02/2024 Overview (04/02/2024): Uncontrolled Degenerative lumbar spinal stenosis 10/31/2023 Primary osteoarthritis of left knee 10/31/2023 Psoriasis 10/28/2023 Hypertension 03/25/2023 Assessment & Plan (03/25/2023 9:26 AM EDT): Continue with BP meds Hyperlipidemia 03/25/2023 Type 2 diabetes mellitus, wi thout long-term current use of insulin ([facility] V24, [facility] V28) 03/25/2023 Assessment & Plan (03/25/2023 9:25 AM EDT): Continue with current meds Hypothyroidism 03/25/2023 Assessment & Plan (03/25/2023 9:25 AM EDT): continue with levothyroxine Complete tear of radial newton ateral ligament [...] Problem Noted Date Diagnosed Date Resolved Date Post-traumatic osteoarthritis of right knee 10/31/2023 12/31/2024 Rheumatoid arthritis ([facility]/ C V24, [facility] V28) 03/25/2023 12/19/2024 Acquired hammertoe of left foot 03/25/2022 09/15/2022 Acquired hammertoe of right foot 03/25/2022 09/15/2022 Allergic rhinitis 03/25/2022 09/15/2022 Contusion of great toe, left 03/25/2022 09/15/2022 Diabetes mellitus ([facility]/HCC V24, [facility] V28) 09/15/2022 Diabetic peripheral neuropat hy ([facility] V24, [facility] V28) 03/25/2022 09/15/2022 Fatigue 03/25/2022 09/15/2022 Foot pain 03/25/2022 09/15/2022 Fracture of phalanx of toe 03/25/2022 0 09/15/2022 Hyperlipidemia associated wi th type 2 diabetes mellitus ([facility] V24, [facility] V28) 03/25/2022 09/15/2022 Hyperlipidemia 03/25/2022 09/15/2022 Hypertension [...] Encounters Date Type Department Care Team Description 03/06/2025 Telephone Adult Medicine [place] - [address] [phone] Diana Yarbrough RN 02/22/2025 9:57 AM EDT - 02/22/2025 11:59 PM EDT Hospital Encounter Radiology Department - [address] [phone] Encounter for screening mammogram for breast cancer Discharge Disposition: Home or Self Care 02/13/[address] [phone] Danny Dobson MD 02/11/[address] [phone] Danny Dobson MD 02/05/2025 9:13 AM EDT - 02/05/2025 11:59 PM EDT Hospital Encounter XRAY [address] [phone] Acute pain of right shoulder Discharge Disposition: Home or Self Care 02/05/2025 8:45 AM EDT Office Visit [address] [phone] Hammad Mata NP Acute pain of right shoulder (Primary Dx); Type 2 diabetes mellitus with other specified complication, without long-term current use of insulin ([facility] V24, [facility] V28) 02/05/[address] [phone] Hammad Mata NP 12/31/2024 10:00 AM EDT Office Visit Orthopedic Surgery - [address] [phone] Quinton Saleem MD Status post total right knee replacement (Primary Dx); Chronic pain of right knee; Primary osteoarthritis of left knee; Degenerative lumbar spinal stenosis 12/26/2024 5:21 PM EDT - 12/26/2024 11:59 PM EDT Hospital Encounter Radiology Department - [address] [phone] Stenosis of right carotid artery Discharge Disposition: Home or Self Care 12/19/2024 7:45 AM EDT Office Visit Adult [address] [phone] Danny Dobson MD Stenosis of right carotid artery (Primary Dx); Leukocytosis, unspecified type; Easy bruising; Primary hypertension; Psoriatic arthritis ([facility] V24, [facility] V28); Hypothyroidism, unspecified type; Type 2 diabetes mellitus with hyperglycemia, with long-term current use of insulin ([facility] V24, [facility] V28) from Last 3 Months Immunizations Name Administration [...] WISDOM TEETH EXTRACTION KNEE ARTHROSCOPY Bilateral PROCEDURE: NM ARTHROSCOPY KNEE DIAGNOSTIC W/WO SYNOVIAL BX SPX; COMMENT: in [facility] OTHER SURGICAL HISTORY PROCEDURE: HISTORY OTHER; COMMENT: Brain aneurysm- coils placed- in [facility] in september 2022 BREAST BIOPSY Left PROCEDURE: BX BREAST; PERC NEEDLE CORE W/IMAG GUID; COMMENT: yrs ago-benign Medical History Medical History Date Comments Diabetes ([facility] V24, [facility] V28) HTN (hypertension) Hyperlipidemia Diabetes mellitus ([facility] V 24, [facility] V28) 03/25/2022 Diabetic peripheral neuropat hy ([facility] V24, [facility] V28) 03/25/2022 Hypertension 03/25/2022 Primary osteoarthritis of fi rst carpometacarpal joint of left hand 03/25/2022 Vitamin D deficiency 03/25/2022 Anxiety 03/25/2022 Morbid obesity with BMI of 4 0.0-44.9, adult ([facility] V24, [facility] V28) 03/25/2022 Hypothyroidism 03/25/2022 Brain aneurysm DX:Brain [...] care for your loved ones. For example, childrens club attendant or elderly care for an older adult? [...] AM EST Sexual Orientation Not on file Obstetrics History Para Term AB IAB SAB Ectopic Multiple Livin g Live Births 0 0 0 0 Last Filed Vital Signs Vital Sign Reading Time Taken Comments Blood Pressure 124/72 02/05/2025 8:28 AM EDT Pulse 84 02/05/2025 8:28 AM EDT Temperature 36.6 C (97.8 F) 02/05/2025 8:28 AM EDT Respiratory Rate 14 02/05/2025 8:28 AM EDT Oxygen Saturation 98% 02/05/2025 8:28 AM EDT Inhaled Oxygen Concentration - - Weight 95.3 kg (210 lb) 02/05/2025 8:28 AM EDT Height 162.6 cm (5' 4 ) 02/05/2025 8:28 AM EDT Body Mass Index 36.05 02/05/2025 8:28 AM EDT Plan of Treatment Upcoming Encounters Date Type Department Care Team (Late st Contact Info) Description 03/21/2025 10:00 AM EDT Office Visit Adult Medicine [facility] [place] [address] [place] [phone] Danny Dobson MD [address] [place] [address] 04/18/2025 9:30 AM EDT Office Visit Orthopedic Surgery [place] [phone] [phone] Quinton Saleem MD [address] [phone] 06/12/2025 1:00 PM EST Office Visit Orthopedic [place] [address] [phone] Cesar Le DPM [address] [address] Health Maintenance Due Date Last Done Comments RSV Immunization Adult Patients (1 - 1-dose 75+ series) 2021 Hepatitis C Screening 01/09/2022 Medicare Annual Wellness Visit 02/16/2025 02/17/2024 COVID-19 Vaccine (8 - Pfizer risk season) 2025 03/20/2024, 05/17/2023, 03/16/2022, Additional history exists Influenza Vaccine (#1) 2025 , 03/22/2023, 03/16/2022, Additional history exists Diabetes: Annual Foot Exam 07/04/2025 P ostponed from 01/29/1955 (Patient Refused) Diabetes: Annual Retina Eye Exam 07/04/2025 Postponed from [birth year]29/1955 (Patient Refused) Diabetes: Blood Sugar Control Test (HGBA1C) 09/10/2025 03/13/2025, 12/12/2024, 09/12/2024, Additional history exists Falls Risk Assessment 11/29/2025 11/29/2024 , 02/17/2024, 06/10/2022, Additional history exists Diabetes: Annual Urine Albumin-Creatinine Ratio (uACR) 03/13/2026 03/13/2025, 12/12/2024, 09/12/2024, Additional history exists Diabetes: Annual GFR (Glomerular Filtration Rate) 03/13/2026 03/13/2025, 12/12/2024, 10/17/2024, Additional history exists Hypertension/CHF/CAD Annual BMP Blood Test 03/13/2026 03/13/2025, 12/12/2024, 10/17/2024, Additional history exists Social Influencers of Health Screening 03/14/2026 03/14/2025 Cholesterol Screening (Lipid Panel) 12/12/2029 12/12/2024, 09/12/2024, 06/20/2024, Additional history exists DTaP,Tdap,and Td Vaccines (2 - Td or Tdap) 01/26/2031 01/26/2021 Osteoporosis Screening (Bone Density Screening) 07/10/2034 07/10/2024 Zoster Vaccines Completed 02/06/2023, 12/06/2022 Pneumococcal Vaccine: 50+ Years Completed 07/13/2024 Colorectal Cancer Screening: Colonoscopy Discontinued 11/29/2024, 07/25/2024 Depression Screening Completed 03/14/2025, 02/17/20 24 HIB Vaccines Aged Out No longer eligi [...] strengthening. (Met). Medical Devices Implanted Type Area Partner Integration Planner Device Identifier Shelf Expiration Date Model / Serial / Lot Cath Iv Nexiva 20ga 1.25in - [id number] - [id number] Implanted:Qt y: 1 on 09/07/2022 at [facility] Central/Perip heral Catheters and Ports Right: Arm [email or web address] [id number] 05/03/2025 [id number] / [id number] / [id number] Coil Axium 3d 3awg0kg Qc - [id number] - [id number] Implanted:Qt y: 1 on 09/14/2022 by Erickson Mckeon MD at [facility] Embolectomy Implants Right: Cerebrum [employer] - EV3 FKA COVD-EV3 [id number] 08/29/2023 QC-2-4- 3D / [id number] / [id number] Coil Axium 3d 3.5mm X 6cm Implanted:Qt y: 1 on 09/14/2022 by Erickson Mckeon MD at [facility] Embolectomy Implants Right: Brain [employer] - EV3 FKA COVD-EV3 08/20/2023 QC-3.5- 6-3D / [id number] / Stent Nf Atlass 3.0x21mm No Tip - [id number] - [id number] Implanted:Qt y: 1 on 09/14/2022 by Erickson Mckeon MD at [facility] Peripheral Vasc Bare Metal Stents Right: Cerebrum [employer] [id number] 03/29/2026 [id number] / [id number] / System Perclose Prostyle Suture Medicated - [id number] - [id number] Implanted:Qt y: 1 on 09/07/2022 at [facility] Vascular Closure Devices Right: Groin [employer] [id number] 05/03/2024 60418-6 3 / [id number] / [id number] System Perclose Prostyle Suture Medicated - [id number] - [id number] Implanted:Qt y: 1 on 09/14/2022 by Erickson Mckeon MD at [facility] Vascular Closure Devices Right: Groin [employer] [facility] [id number] 05/03/2024 00848-7 3 / [id number] / System Perclose Prostyle Suture Medicated - [id number] - [id number] Implanted:Qt y: 1 on 03/11/2023 by Luda Egan MD at [facility] Vascular Closure Devices Right: Groin [employer] [id number] 10/31/2024 48374-7 3 / [id number] / [id number] Procedures Procedure Name Priority Date/Time Associated Diagnosis Comments COMPREHENSIVE METABOLIC PANEL Routine 03/13/2025 9:13 AM EDT Type 2 diabetes mellitus without complication, with long-term current use of insulin ([facility] V24, CMS/[facility] V28) HEMOGLOBIN A1C Routine 03/13/2025 9:13 AM EDT Type 2 diabetes mellitus without complication, with long-term current use of insulin (CMS/HCC V24, CMS/HCC V28) MICROALBUMIN CREATININE URINE RATIO Routine 03/13/2025 9:13 AM EDT Type 2 diabetes mellitus without complication, with long-term current use of insulin ([facility] V24, CMS/HCC V28) CBC WITH AUTO DIFFERENTIAL Routine 02/22/2025 10:25 AM EDT Easy bruising CBC AND DIFFERENTIAL Routine 02/22/2025 10:25 AM EDT Easy bruising PROTHROMBIN TIME WITH INR Routine 02/22/2025 10:25 AM EDT Easy bruising ACTIVATED PARTIAL THROMBOPLASTIN TIME Routine 02/22/2025 10:25 AM EDT Easy bruising MG MAMMO DIGITAL SCREENING W ADARSH BILAT Routine 02/22/2025 10:07 AM EDT Encounter for screening mammogram for breast cancer XR SHOULDER 2+ VIEWS RIGHT Routine 02/05/2025 9:27 AM EDT Acute pain of right shoulder EXTERNAL XRAY REPORT 02/05/2025 VAS US DUPLEX CAROTID BILATERAL Routine 12/26/2024 5:54 PM EDT Stenosis of right carotid artery LIPID PANEL WITH REFLEX TO DIRECT LDL Routine 12/12/2024 7:38 AM EDT Type 2 diabetes mellitus without complication, with long-term current use of insulin ([facility] V24, [facility] V28) COLONOSCOPY Routine 11/29/2024 8:46 AM EDT Personal history of colon polyps, unspecified BD BONE DENSITY DXA APPENDICULAR SKELETON Routine 07/10/2024 11:24 AM EST Asymptomatic menopausal state DEPRESSION SCREENING Routine 02/17/2024 FALLS RISK ASSESSMENT Routine 02/17/2024 from Last 3 Months or Most Recently Relevant to Health Maintenance Results * Microalbumin creatinine urine ratio (03/13/2025 9:13 AM EDT) [facility] Creatinine, Urine 35.0 mg/dL LAB CHEMISTRY METHOD 03/13/2025 11:08 AM EDT [facility] Microalb, Ur 7.7 0.0 - 29.0 mg/L LAB CHEMISTRY METHOD 03/13/2025 11:08 AM EDT [facility] Microalb/Creat Ratio 22 <30 mg/g creat LAB CHEMISTRY METHOD 03/13/2025 11:08 AM EDT [facility] Urine Urine specimen obtained by clean catch procedure / Unknown Non-blood Collection / Unknown 03/13/2025 9:13 AM EDT 03/13/2025 9:13 AM EDT Danny Dobson MD LAB URINE ORDERABLES Final Result Performing Organization Address City/[facility]/ZIP Co de Phone Number [facility] [address] [place] [address], [place] [phone] * (ABNORMAL) Hemoglobin A1c (03/13/2025 9:13 AM EDT) Hemoglobin A1C 7.6(H) <6.5 % LAB CHEMISTRY METHOD 03/13/2025 9:32 PM EDT [facility] Mean Bld Glu Estim. 171 mg/dL LAB CHEMISTRY METHOD 03/13/2025 9:32 PM EDT [facility] Blood Venous blood specimen / Unknown Venipuncture / Unknown 03/13/2025 9:13 AM EDT 03/13/2025 9:13 AM EDT Danny Dobson MD LAB BLOOD ORDERABLES Final Result [facility] [address] [place] [address], [place] [phone] * Comprehensive metabolic panel (03/13/2025 9:13 AM EDT) Sodium 136 133 - 145 mmol/L LAB CHEMISTRY METHOD 03/13/2025 12:44 PM EDT [facility] Potassium 4.4 3.5 - 5.5 mmol/L LAB CHEMISTRY METHOD 03/13/2025 12:44 PM [facility] Chloride 102 96 - 110 mmol/L LAB CHEMISTRY METHOD 03/13/2025 12:44 PM [facility] CO2 30 21 - 32 mmol/L LAB CHEMISTRY METHOD 03/13/2025 12:44 PM [facility] Anion Gap 4 3 - 11 LAB CHEMISTRY METHOD 03/13/2025 12:44 PM [facility] Glucose 85 70 - 100 mg/dL LAB CHEMISTRY METHOD 03/13/2025 12:44 PM [facility] BUN 16 5 - 25 mg/dL LAB CHEMISTRY METHOD 03/13/2025 12:44 PM [facility] Creatinine 0.62 0.50 - 1.10 mg/dL LAB CHEMISTRY METHOD 03/13/2025 12:44 PM [facility] eGFR 91 >=60 mL/min/1. 73m2 LAB CHEMISTRY METHOD 03/13/2025 12:44 PM [facility] Comment:Calculation based on the Chronic Kidney Disease Epidemiology Collaboration (CKD-EPI) equation refit without adjustment for race. BUN/Creatinine Ratio 25.8 LAB CHEMISTRY METHOD 03/13/2025 12:44 PM [facility] Calcium 9.3 8.5 - 10.5 mg/dL LAB CHEMISTRY METHOD 03/13/2025 12:44 PM [facility] AST (SGOT) 19 10 - 42 unit/L LAB CHEMISTRY METHOD 03/13/2025 12:44 PM [facility] ALT (SGPT) 20 10 - 60 unit/L LAB CHEMISTRY METHOD 03/13/2025 12:44 PM [facility] Alkaline Phosphatase 69 42 - 121 unit/L LAB CHEMISTRY METHOD 03/13/2025 12:44 PM [facility] Total Protein 7.0 6.0 - 8.0 g/dL LAB CHEMISTRY METHOD 03/13/2025 12:44 PM EDT [facility] Albumin 4.3 3.2 - 5.0 g/dL LAB CHEMISTRY METHOD 03/13/2025 12:44 PM EDT [facility] Total Bilirubin 0.8 0.0 - 1.4 mg/dL LAB CHEMISTRY METHOD 03/13/2025 12:44 PM EDT [facility] Blood Venous blood specimen / Unknown Venipuncture / Unknown 03/13/2025 9:13 AM EDT 03/13/2025 9:13 AM EDT us Danny Dobson MD LAB BLOOD ORDERABLES Final Result [facility] [address] [place] [address], [place] [phone] * (ABNORMAL) CBC auto differential (02/22/2025 10:25 AM EDT) WBC 10.4 4.8 - 10.8 K/mcL LAB HEMETOLOGY METHOD 02/22/2025 12:30 PM [facility] RBC 5.00(H) 3.80 - 4.80 M/mcL LAB HEMETOLOGY METHOD 02/22/2025 12:30 PM [facility] Hemoglobin 15.5 11.5 - 16.0 g/dL LAB HEMETOLOGY METHOD 02/22/2025 12:30 PM T [facility] Hematocrit 47.4(H) 35.0 - 47.0 % LAB HEMETOLOGY METHOD 02/22/2025 12:30 PM EDT [facility] MCV 94.0 79.0 - 98.0 FL LAB HEMETOLOGY METHOD 02/22/2025 12:30 PM [facility] MCH 30.8 27.0 - 32.0 pcg LAB HEMETOLOGY METHOD 02/22/2025 12:30 PM [facility] MCHC 32.7 32.0 - 37.0 g/dL LAB HEMETOLOGY METHOD 02/22/2025 12:30 PM [facility] RDW 13.7 11.0 - 15.0 % LAB HEMETOLOGY METHOD 02/22/2025 12:30 PM [facility] Platelets 197 130 - 400 K/mcL LAB HEMETOLOGY METHOD 02/22/2025 12:30 PM [facility] MPV 11.6(H) 7.0 - 11.0 FL LAB HEMETOLOGY METHOD 02/22/2025 12:30 PM [facility] NRBC 0.0 <1.0 % LAB HEMETOLOGY METHOD 02/22/2025 12:30 PM [facility] NRBC Absolute 0.00 <0.10 K/mcL LAB HEMETOLOGY METHOD 02/22/2025 12:30 PM [facility] Neutrophils Relative 68.1 % LAB HEMETOLOGY METHOD 02/22/2025 12:30 PM [facility] Lymphocytes Relative 23.9 % LAB HEMETOLOGY METHOD 02/22/2025 12:30 PM [facility] Monocytes Relative 6.2 % LAB HEMETOLOGY METHOD 02/22/2025 12:30 PM [facility] Eosinophils Relative 1.0 % LAB HEMETOLOGY METHOD 02/22/2025 12:30 PM [facility] Basophils Relative 0.4 % LAB HEMETOLOGY METHOD 02/22/2025 12:30 PM [facility] Immature Granulocytes Relative 0.4 % LAB HEMETOLOGY METHOD 02/22/2025 12:30 PM [facility] Neutrophils Absolute 7.07(H) 1.50 - 7.00 K/mcL LAB HEMETOLOGY METHOD 02/22/2025 12:30 PM EDT [facility] Lymphocytes Absolute 2.48 1.00 - 5.00 K/[facility] LAB HEMETOLOGY METHOD 02/22/2025 12:30 PM EDT [facility] Monocytes Absolute 0.64 0.20 - 1.00 K/mcL LAB HEMETOLOGY METHOD 02/22/2025 12:30 PM EDT [facility] Eosinophils Absolute 0.10 0.00 - 0.50 K/[facility] LAB HEMETOLOGY METHOD 02/22/2025 12:30 PM EDT [facility] Basophils Absolute 0.04 0.00 - 0.20 [facility] LAB HEMETOLOGY METHOD 02/22/2025 12:30 PM EDT [facility] Immature Granulocytes Absolute 0.04(H) 0.00 - 0.03 K/[facility] LAB HEMETOLOGY METHOD 02/22/2025 12:30 PM EDT [facility] Blood Venous blood specimen / Unknown Venipuncture / Unknown 02/22/2025 10:25 AM EDT 02/22/2025 10:25 AM EDT us Danny Dobson MD LAB BLOOD ORDERABLES Final Result [facility] [address] [place] [address], * Activated partial thromboplastin time (02/22/2025 10:25 AM EDT) aPTT 31.1 24.1 - 39.3 sec LAB COAGULATION METHOD 02/22/2025 12:20 PM EDT [facility] Blood Venous blood specimen / Unknown Venipuncture / Unknown 02/22/2025 10:25 AM EDT 02/22/2025 10:25 AM EDT us Danny Dobson MD LAB BLOOD ORDERABLES Final Result Performing Organization Address City/[facility] Co de Phone Number [facility] [address] [place] [address], [place] [phone] * (ABNORMAL) Prothrombin time with INR (02/22/2025 10:25 AM EDT) Protime 10.1(L) 10.6 - 13.9 sec LAB COAGULATION METHOD 02/22/2025 12:20 PM EDT [facility] INR 0.8 LAB COAGULATION METHOD 02/22/2025 12:20 PM EDT [facility] Blood Venous blood specimen / Unknown Venipuncture / Unknown 02/22/2025 10:25 AM EDT 02/22/2025 10:25 AM EDT us Danny Dobson MD LAB BLOOD ORDERABLES Final Result Performing Organization Address [facility] Co de Phone Number [facility] [address] [place] [address], [place] [phone] * MG Mammo Digital Screening w Adarsh bilat (02/22/2025 10:07 AM EDT) Anatomical Region Laterality Modality Breast Bilateral Mammography 02/25/2025 4:50 PM EDT Impressions 02/25/2025 4:53 PM EDT 1. No mammographic evidence of malignancy 2. Scattered fibroglandular tissue BI-RADS CATEGORY: 2 - BENIGN RECOMMENDATION: Screening bilateral mammogram is recommended in 1 year. Mammo Location: [facility], [address] [place] [address], [id number], . -------- FINAL REPORT -------- Dictated By: Suki Castellon Dictated Date: 02/25/2025 16:50 ET Assigned Physician: Suki Castellon Reviewed and Electronically Signed By: Suki Castellon Signed Date: 02/25/2025 16:53 ET Workstation ID: [id number] Transcribed By: Self Edit Transcribed Date: 02/25/2025 16:50 ET Narrative 02/25/2025 4:53 PM EDT A BILATERAL DIGITAL 3D SCREENING MAMMOGRAPHY HISTORY: Routine screening. COMPARISON: Multiple priors dating back to 04/30/2020 Technique: Bilateral full field digital mammography (3D) was performed using standard CC and MLO projections , right breast cleavage view CAD was used to evaluate this mammogram. FINDINGS: Right: No suspicious masses, groups of microcalcification or areas of architectural distortion identified. Stable typically benign parenchymal asymmetries. Left: No suspicious masses, groups of microcalcification or areas of architectural distortion identified. Stable typically benign parenchymal asymmetries. Retroareolar biopsy marker BREAST DENSITY: B - There are scattered areas of fibroglandular density. Procedure Note Suki Castellon MD - 02/25/2025 A BILATERAL DIGITAL 3D SCREENING MAMMOGRAPHY HISTORY: Routine screening. COMPARISON: Multiple priors dating back to 04/30/2020 Technique: Bilateral full field digital mammography (3D) was performedusing standard CC and MLO projections , right breast cleavage view CAD was used to evaluate this mammogram. FINDINGS: Right: No suspicious masses, groups of microcalcification or areas ofarchitectural distortion identified. Stable typically benign parenchymalasymmetries. Left: No suspicious masses, groups of microcalcification or areas ofarchitectural distortion identified. Stable typically benign parenchymalasymmetries. Retroareolar biopsy marker BREAST DENSITY: B - There are scattered areas of fibroglandular density. IMPRESSION: 1. No mammographic evidence of malignancy 2. Scattered fibroglandular tissue BI-RADS CATEGORY: 2 - BENIGN RECOMMENDATION: Screening bilateral mammogram is recommended in 1 year. Mammo Location: [facility], [address] [place] [id number], [id number], . -------- FINAL REPORT -------- Dictated By: Suki Castellon Dictated Date: 02/25/2025 16:50 ET Assigned Physician: Suki Castellon Reviewed and Electronically Signed By: Suki Castellon Signed Date: 02/25/2025 16:53 ET Workstation ID: [id number] Transcribed By: Self Edit Transcribed Date: 02/25/2025 16:50 ET us Danny Dobson MD IMG BI PROCEDURES Final Res ult * XR Shoulder 2+ Views Right (02/05/2025 9:27 AM EDT) Anatomical Region Laterality Modality Upper Extremities, Shoulder Right Radi ographic Imaging 02/05/2025 12:5 6 PM EDT Impressions 02/05/2025 1:04 PM EDT Mild degenerative changes. Downsloping of the acromion which can contribute to impingement. Findings of calcific tendinopathy. POS - [id number] -------- FINAL REPORT -------- Dictated By: Rozina Nash Dictated Date: 02/05/2025 12:56 ET Assigned Physician: Rozina Nash Reviewed and Electronically Signed By: Rozina Nash Signed Date: 02/05/2025 13:04 ET Workstation ID: [id number] Transcribed By: Self Edit Transcribed Date: 02/05/2025 12:56 ET Narrative 02/05/2025 1:04 PM EDT EXAM: Right shoulder x-ray HISTORY: Right shoulder pain. COMPARISON: None FINDINGS: 4 views performed. Mild degenerative changes at the acromioclavicular joint. Minimal spurring of the inferior glenoid with preserved glenohumeral joint space. Lateral downsloping of the acromion. No acute fracture or dislocation detected. Soft tissue calcifications adjacent to the lateral humeral head and possibly anteriorly which can be seen with calcific tendinopathy. Procedure Note Rozina Nash MD - 02/05/2025 EXAM: Right shoulder x-ray HISTORY: Right shoulder pain. COMPARISON: None FINDINGS: 4 views performed. Mild degenerative changes at the acromioclavicular joint. Minimal spurringof the inferior glenoid with preserved glenohumeral joint space. Lateraldownsloping of the acromion. No acute fracture or dislocation detected.Soft tissue calcifications adjacent to the lateral humeral head andpossibly anteriorly which can be seen with calcific tendinopathy. IMPRESSION: Mild degenerative changes. Downsloping of the acromion which cancontribute to impingement. Findings of calcific tendinopathy. 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 Analysis is based on grayscale and velocity measurements which have been correlated with the NASCET criteria for measuring internal carotid artery stenosis. PQRS: 3100F. -------- FINAL REPORT -------- Dictated By: Mimi Barlow Dictated Date: 12/27/2024 01:06 ET Assigned Physician: Mimi Barlow Reviewed and Electronically Signed By: Mimi Barlow Signed Date: 12/27/2024 01:08 ET Workstation ID: [id number] Transcribed By: Self Edit Transcribed Date: 12/27/2024 01:06 ET Narrative 12/27/2024 1:08 AM EDT VAS US DUPLEX CAROTID BILATERAL BILATERAL CAROTID ARTERIAL ULTRASOUND Clinical History: Right carotid artery stenosis. Comparison: No prior studies are available for comparison. Technique and Findings: Stark scale, color and pulsed Doppler imaging were utilized. Mild echogenic plaques were noted in the distal common carotid arteries bilaterally extending into the origin of the left internal carotid artery without visible stenosis on visual inspection bilaterally. Both carotid systems demonstrate normal waveforms with brisk systolic upstrokes. Measured peak systolic velocities are as follows: Right ICA: 94 cm/s. Right ICA/CCA ratio: 1.1. Left ICA: 80 cm/s. Left ICA/CCA ratio: 1.2. Both vertebral arteries demonstrate normal antegrade flow. Procedure Note Mimi Barlow MD - 12/27/2024 VAS US DUPLEX CAROTID BILATERAL BILATERAL CAROTID ARTERIAL ULTRASOUND Clinical History: Right carotid artery stenosis. Comparison: No prior studies are available for comparison. Technique and Findings: Stark scale, color and pulsed Doppler imaging wereutilized. Mild echogenic plaques were noted in the distal common carotid arteriesbilaterally extending into the origin of the left internal carotid arterywithout visible stenosis on visual inspection bilaterally. Both carotidsystems demonstrate normal waveforms with brisk systolic upstrokes. Measured peak systolic velocities are as follows: Right ICA: 94 cm/s. Right ICA/CCA ratio: 1.1. Left ICA: 80 cm/s. Left ICA/CCA ratio: 1.2. Both vertebral arteries demonstrate normal antegrade flow. IMPRESSION: Bilateral carotid arterial system atherosclerosis, without evidence ofhemodynamically significant stenoses. Analysis is based on grayscale and velocity measurements which have beencorrelated with the NASCET criteria for measuring internal carotid arterystenosis. PQRS: 3100F. -------- FINAL REPORT -------- Dictated By: Mimi Barlow Dictated Date: 12/27/2024 01:06 ET Assigned Physician: Mimi Barlow Reviewed and Electronically Signed By: Mimi Barlow Signed Date: 12/27/2024 01:08 ET Workstation ID: [id number] Transcribed By: Self Edit Transcribed Date: 12/27/2024 01:06 ET us Danny Dobson MD CV VASCULAR PROCEDURES Gilma simmons Result * Lipid panel with reflex to direct LDL (12/12/2024 7:38 AM EDT) Cholesterol 154 0 - 200 mg/dL LAB CHEMISTRY METHOD 12/12/2024 11:07 AM EDT [facility] Triglycerides 140 0 - 150 mg/dL LAB CHEMISTRY METHOD 12/12/2024 11:07 AM EDT [facility] HDL 55 >=40 mg/dL LAB CHEMISTRY METHOD 12/12/2024 11:07 AM EDT [facility] LDL Calculated 71 0 - 100 mg/dL LAB CHEMISTRY METHOD 12/12/2024 11:07 AM EDT [facility] VLDL Cholesterol Aiden 28 mg/dL LAB CHEMISTRY METHOD 12/12/2024 11:07 AM EDT [facility] Non HDL Chol. (LDL+VLDL) 99 <145 mg/dL LAB CHEMISTRY METHOD 12/12/2024 11:07 AM EDT [facility] Chol/HDL Ratio 2.8 0.0 - 4.4 LAB CHEMISTRY METHOD 12/12/2024 11:07 AM EDT [facility] Blood Venous blood specimen / Unknown Venipuncture / Unknown 12/12/2024 7:38 AM EDT 12/12/2024 7:38 AM EDT Danny Dobson MD LAB BLOOD ORDERABLES Final Result [facility] [address] [place] [address], * COLONOSCOPY Anesthesia - [facility] [place] [facility] ENDOSCOPY (11/29/2024 8:46 AM EDT) Anatomical Region Laterality Modality Endoscopy 11/29/2024 8:23 AM EDT Impressions 11/29/2024 8:51 AM EDT - Two 5 to 7 mm polyps in the transverse colon, removed with a cold snare. Resected and retrieved. - One 15 mm polyp in the cecum, removed with a hot snare. Resected and retrieved. Injected. Clips (MR conditional) were placed. Clip patient care manager: Myrio. - Diverticulosis in the sigmoid colon. - Internal hemorrhoids. Recommendation: - Await pathology results. - Repeat colonoscopy is recommended. The colonoscopy date will be determined after pathology results from today's exam become available for review. Narrative 11/29/2024 8:51 AM EDT [facility] GI Patient Name: Kalyn Heard Procedure Date: 11/29/2024 8:23 AM Date of : 1945 Age: 79 Gender: Female Note Status: Finalized Attending MD: Richelle Pritchard MD, Procedure Date No Time: 11/29/2024 Procedure: Colonoscopy Indications: High risk colon cancer surveillance: Personal history of colonic polyps Providers: Richelle Pritchard MD Referring MD: Richelle Pritchard MD Medicines: Monitored Anesthesia Care Complications: No immediate complications. Estimated blood loss: Minimal. Estimated Blood Loss: Estimated blood loss was minimal. Procedure: Pre-Anesthesia Assessment: - Prior to the procedure, a History and Physical was performed, and patient medications and allergies were reviewed. The patient is competent. The risks and benefits of the procedure and the sedation options and risks were discussed with the patient. All questions were answered and informed consent was obtained. Patient identification and proposed procedure were verified by the physician, the nurse, the software integration developer and the gem technician in the pre-procedure area in the endoscopy suite. Mental Status Examination: alert and oriented. Airway Examination: normal oropharyngeal airway and neck mobility. Respiratory Examination: clear to auscultation. CV Examination: normal. Prophylactic Antibiotics: The patient does not require prophylactic antibiotics. Prior Anticoagulants: The patient has taken no anticoagulant or antiplatelet agents. ASA Grade Assessment: III - A patient with severe systemic disease. After reviewing the risks and benefits, the patient was deemed in satisfactory condition to undergo the procedure. The anesthesia plan was to use monitored anesthesia care (MAC). Immediately prior to administration of medications, the patient was re-assessed for adequacy to receive sedatives. The heart rate, respiratory rate, oxygen saturations, blood pressure, adequacy of pulmonary ventilation, and response to care were monitored throughout the procedure. The physical status of the patient was re-assessed after the procedure. After I obtained informed consent, the scope was passed under direct vision. Throughout the procedure, the patient's blood pressure, pulse, and oxygen saturations were monitored continuously. The Colonoscope was introduced through the anus and advanced to the cecum, identified by appendiceal orifice and ileocecal valve. The colonoscopy was performed without difficulty. The patient tolerated the procedure well. The quality of the bowel preparation was good. Findings: The perianal and digital rectal examinations were normal. Two sessile polyps were found in the transverse colon. The polyps were 5 to 7 mm in size. These polyps were removed with a cold snare. Resection and retrieval were complete. Estimated blood loss was minimal. A 15 mm polyp was found in the cecum. The polyp was flat and multi-lobulated. Area was successfully injected with 4 mL hetastarch 6% + epinephrine + methylene blue combo for a lift polypectomy. The polyp was removed with a hot snare. Resection and retrieval were complete. To prevent bleeding after the polypectomy, four hemostatic clips were successfully placed (MR conditional). Clip patient care manager: Myrio. There was no bleeding at the end of the procedure. Estimated blood loss was minimal. Scattered small-mouthed diverticula were found in the sigmoid colon. Internal hemorrhoids were found during retroflexion. The hemorrhoids were Grade I (internal hemorrhoids that do not prolapse). Procedure Code(s): --- Professional --- 90534, Colonoscopy, flexible; with removal of tumor(s), polyp(s), or other lesion(s) by snare technique 72573, Colonoscopy, flexible; with directed submucosal injection(s), any substance Diagnosis Code(s): --- Professional --- D12.3, Benign neoplasm of transverse colon (hepatic flexure or splenic flexure) D12.0, Benign neoplasm of cecum CPT copyright 2020 [employer]. All rights reserved. The codes documented in this report are preliminary and upon inpatient coder review may be revised to meet current compliance requirements. Richelle Pritchard MD 11/29/2024 8:50:59 AM This report has been signed electronically.Richelle Pritchard MD Number of Addenda: 0 Note Initiated On: 11/29/2024 8:23 AM Scope Withdrawal Time: 0 hours 12 minutes 48 seconds Scope In: 8:28:21 AM Scope Out: 8:47:17 AM Endoscopy Department at [facility] - [address] [place] [phone] Procedure Note Richelle Pritchard MD - 11/29/2024 [facility] GI Patient Name: Kalyn Heard Procedure Date: 11/29/2024 8:23 AM Date of : 1945 Age: 79 Gender: Female Note Status: Finalized Attending MD: Richelle Pritchard MD, Procedure Date No Time: 11/29/2024 Procedure: Colonoscopy Indications: High risk colon cancer surveillance: Personalhistory of colonic polyps Providers: Richelle Pritchard MD Referring MD: Richelle Pritchard MD Medicines: Monitored Anesthesia Care Complications: No immediate complications. Estimated blood loss: Minimal. Estimated Blood Loss: Estimated blood loss was minimal. Procedure: Pre-Anesthesia Assessment: - Prior to the procedure, a History and Physicalwas performed, and patient medications and allergieswere reviewed. The patient is competent. The risks and benefits of the procedure and the sedation optionsand risks were discussed with the patient. Allquestions were answered and informed consent was obtained. Patient identification and proposed procedure were verified by the physician, the nurse, theanesthetist and the gem technician in the pre-procedure area in the endoscopy suite. Mental Status Examination: alertand oriented. Airway Examination: [...] The Colonoscope was introduced through the anus and advanced to the cecum, identified by appendiceal orifice and ileocecal valve. The colonoscopy was performed without difficulty. The patient tolerated the procedure well. The quality of the bowel preparation was good. Findings: The perianal and digital rectal examinations were normal. Two sessile polyps were found in the transversecolon. The polyps were 5 to 7 mm in size. These polypswere removed with a cold snare. Resection and retrieval were complete. Estimated blood loss was minimal. A 15 mm polyp was found in the cecum. The polyp was flat and multi-lobulated. Area was successfully injected with 4 mL hetastarch 6% + epinephrine + methylene blue combo for a lift polypectomy. Thepolyp was removed with a hot snare. Resection andretrieval were complete. To prevent bleeding after the polypectomy, four hemostatic clips weresuccessfully placed (MR conditional). Clip patient care manager: Myrio. There was no bleeding at the end of the procedure. Estimated blood loss was minimal. Scattered small-mouthed diverticula were found inthe sigmoid colon. Internal hemorrhoids were found duringretroflexion. The hemorrhoids were Grade I (internal hemorrhoids that do not prolapse). Procedure Code(s): --- Professional --- 59055, Colonoscopy, flexible; with removal of tumor(s), polyp(s), or other lesion(s) by snare technique 55712, Colonoscopy, flexible; with directedsubmucosal injection(s), any substance Diagnosis Code(s): --- Professional --- D12.3, Benign neoplasm of transverse colon (hepatic flexure or splenic flexure) D12.0, Benign neoplasm of cecum CPT copyright 2020 [employer]. All rights reserved. The codes documented in this report are preliminary and upon inpatient coder reviewmay be revised to meet current compliance requirements. Richelle Pritchard MD 11/29/2024 8:50:59 AM This report has been signed electronically.Richelle Pritchard MD Number of Addenda: 0 Note Initiated On: 11/29/2024 8:23 AM Scope Withdrawal Time: 0 hours 12 minutes 48 seconds Scope In: 8:28:21 AM Scope Out: 8:47:17 AM Endoscopy Department at [facility] - [address] [place] [phone] IMPRESSION: - Two 5 to 7 mm polyps in the transverse colon, removed with a cold snare. Resected andretrieved. - One 15 mm polyp in the cecum, removed with a hot snare. Resected and retrieved. Injected. Clips (MR conditional) were placed. Clip patient care manager: Myrio. - Diverticulosis in the sigmoid colon. - Internal hemorrhoids. Recommendation: - Await pathology results. - Repeat colonoscopy is recommended. Thecolonoscopy date will be determined after pathology resultsfrom today's exam become available for review. us Richelle Pritchard MD GI~PROCEDURE ORDERABLES Fin [...] the T-scores as follows: At or above -1 SD Normal bone density Between -1 and -2.5 SD Osteopenia At or below -2.5 SD Osteoporosis -------- FINAL REPORT -------- Dictated By: Adria Joaquin Dictated Date: 07/10/2024 20:03 ET Assigned Physician: Adria Joaquin Reviewed and Electronically Signed By: Adria Joaquin Signed Date: 07/10/2024 20:05 ET Workstation ID: [id number] Transcribed By: Self Edit Transcribed Date: 07/10/2024 20:03 ET Narrative 07/10/2024 8:05 PM EST STUDY: DUAL ENERGY X-RAY ABSORPTIOMETRY / DXA REASON FOR EXAM: Female, 79 years old Z78.0 TECHNIQUE: Bone Mineral Density (BMD) measurements of the lumbar spine and left hip were obtained using [employer] Discovery W (S/N [id number]). COMPARISON: None FINDINGS: L1-L3 BMD: 1.389 g/cm2 L1-L3 T score: 3.4. This corresponds to Normal bone density. Left femoral neck BMD: 0.905 g/cm2 Left femoral neck T score: 0.5. This corresponds to Normal bone density. Left total hip BMD: 1.088 g/cm2 Left total hip T score: 1.2. This corresponds to Normal bone density. Procedure Note Adria Joaquin MD - 07/10/2024 STUDY: DUAL ENERGY X-RAY ABSORPTIOMETRY / DXA REASON FOR EXAM: Female, 79 years old Z78.0 TECHNIQUE: Bone Mineral Density (BMD) measurements of the lumbar spineand left hip were obtained using [employer] W (S/N [id number]). COMPARISON: None FINDINGS: L1-L3 BMD: 1.389 g/cm2 [...] Signed Date: 07/10/2024 20:05 ET Workstation ID: [id number] Transcribed By: Self Edit Transcribed Date: 07/10/2024 20:03 ET Samira Tiwari MD IMG DXA PROCEDURES Fin al Result * Falls Risk Assessment (02/17/2024) Falls Risk Assessment Abstracted Result [facility] Historical Provider HEALTH MAINTENANCE Final Result * Depression Screening (02/17/2024) Depression Screening Abstracted Result [facility] Historical Provider HEALTH MAINTENANCE Final Result from Last 3 Months or Most Recently Relevant to Health Maintenance Insurance MEDICARE [facility] Advance Directives Documents on File Type Date Recorded 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 Care Teams [employer] Setting Machine Operator Relationship Specialty Start Date End Date Danny Dobson MD [address] [place] [id number] PCP - General 02/17/24
--- OUTSIDE RECORDS SUMMARY | 2025-03-18 13:23 | XMS_ITS ---
Author Name [facility] Organization Unknown Care Team Organization Name Specialty Phone Email Start Date End [facility] 02/20/2025
== END 2025-03-18 10:28 | disposition home or self-care (01) ==
LOC: HO.LAB 10:27
PROVIDERS: PCP Internal Medicine; Visit Provider Student in an Organized Health Care Education/Training Program
DX: L40.50 Arthropathic psoriasis, unspecified (principal)
CPT/HCPCS: 36415; 80053; 85025; 85652; 86140

== ENCOUNTER 2025-03-22 08:28 | Outpatient (AMB) | payer MEDICARE, SELFPAY ==
--- OUTSIDE RECORDS SUMMARY | 2022-04-06 | XMS_ITS | Encounter Summary ---
Author Organization [facility] [place] [address] Care Team Providers Care Travel Registered Nurse Pacu Name Role Phone Robert Shala MCKAY Primary Care Provider [phone] Encounter Details Date Type Department Care Team (Late st Contact Info) Description 04/06/2022 Hospital Encounter TH HISTORIC ENCOUNTERS EASTERN CONVERSION ONLY Sophia Balderas MD [address] [facility] 2nd [place] [address] Social History Tobacco Use Types [...] care for your loved ones. For example, early childhood aide classroom or elderly care for an older adult? [...] Date Recorded What is your living situation? 0 03/14/2025 Interpersonal Safety Answer Date Record ed Physical Abuse 11/29/2024 Verbal Abuse 11/29/2024 Comments Unknown Sex and Gender Information [...] AM EDT documented as of this encounter Plan of Treatment Upcoming Encounters Date Type Department Care Team (Late st Contact Info) Description 04/18/2025 9:30 AM EDT Office Visit Orthopedic Surgery - [place] [address] [place] [phone] Quinton Saleem MD [address] [address] 06/12/2025 1:00 PM EST Office Visit Orthopedic Surgery - [place] [address] [phone] Cesar Le DPM [address] [address] 07/24/2025 9:45 AM EST Office Visit Adult [address] [phone] Danny Dobson MD [address] [place] [address] 03/26/2026 10:00 AM EDT Office Visit Adult [address] [phone] Danny Dobson MD [address] [employer], [place] documented as of this encounter Goals Goal Patient Goal Type Associated Problems Recent Progress Patient-Stated? Author HP Ensure safe transition of care General On track( 023 2:27 PM EDT) No Gladys Lara RN LTG's 12 visits General Yes Travis Gold, [...] independent and compliant w/ final HEP of [facility] strengthening. (Met). documented as of this encounter Visit Diagnoses Not on filedocumented in this encounter Care Teams Travel Registered Nurse Pacu Relationship Specialty Start Date End Date Shala Jones DO PCP - General Internal Medicine 03/25/22 04/19/22 documented as of this encounter
--- OUTSIDE RECORDS SUMMARY | 2025-03-21 10:00 | XMS_ITS | Encounter Summary ---
Author Organization [facility] Address [address] [place] [address] Care Team Providers Care Lamina Searcher Name Role Phone Danny Dobson MD Primary Care Provider Reason for Visit * Reason Comments Medicare Annual Wellness Visit Subsequen t Encounter Details Date Type Department Care Team ([facility] st Contact Info) Description 03/21/2025 10:00 AM EDT Office Visit Adult Medicine [facility] [address] [place] [phone] Danny Dobson MD [address] [place] [address] Encounter for subsequent annual wellness visit (AWV) in Medicare patient (Primary Dx); Class 2 severe obesity due to excess calories with serious comorbidity and body mass index (BMI) of 36.0 to 36.9 in adult (CMS/HCC V24, CMS/HCC V28); Primary hypertension; Psoriatic arthritis (CMS/HCC V24, CMS/HCC V28); Type 2 diabetes mellitus with hyperglycemia, with long-term current use of insulin (CMS/HCC V24, CMS/HCC V28); Hyperlipidemia, unspecified hyperlipidemia type; Routine general medical examination at a health care facility Social History Tobacco Use Types Packs/Day Years [...] for your loved ones. 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 [...] on file documented as of this encounter Last Filed Vital Signs Vital Sign Reading Time Taken Comments Blood Pressure 126/67 03/21/2025 10:25 AM EDT Pulse 74 03/21/2025 9:44 AM EDT Temperature 36.1 C (97 F) 03/21/2025 9:44 AM EDT Respiratory Rate 12 03/21/2025 9:44 AM EDT Oxygen Saturation - - Inhaled Oxygen Concentration - - Weight 96.2 kg (212 lb) 03/21/2025 9:44 AM EDT Height 162.6 cm (5' 4 ) 03/21/2025 9:44 AM EDT Body Mass Index 36.39 03/21/2025 9:44 AM EDT documented in this encounter Patient Instructions * Attachments The following attachments cannot be sent through Care Everywhere. * Diabetes: Carb Counting and Eating Well: General Info ([place]) * Diabetes: Counting Carbohydrates ([place]) * Exercise: General Info ([place]) * RSV (Respiratory Syncytial Virus) Vaccine ([place]) * Mammogram ([place]) * Colon Cancer: Screening ([place]) * Healthy Eating: At Home: Quick List ([place]) * Physical Activity: Walking ([place]) * Advance Directives ([place]) * Advance Care Planning ([place]) documented in this encounter Ordered Prescriptions Prescription Sig Dispense Quantity Refills Last Filled Start Date End Date metFORMIN (GLUCOPHAGE) 1,000 mg tablet Take 1 tablet (1,000 mg total) by mouth 2 (two) times a day with meals. 180 tablet 1 03/21/2025 losartan (COZAAR) 100 mg tablet Take 1 tablet (100 mg total) by mouth 1 (one) time each day. 90 each 03/21/2025 levothyroxine (SYNTHROID, LEVOTHROID) 100 mcg tablet Take 1 tablet (100 mcg total) by mouth 1 (one) time each day. before breakfast 90 each 03/21/2025 hydroCHLOROthiazid e (HYDRODIURIL) 25 mg tablet Take 1 tablet (25 mg total) by mouth 1 (one) time each day. 90 each 03/21/2025 empagliflozin (JARDIANCE) 25 mg tablet Take 1 tablet (25 mg total) by mouth 1 (one) time each day in the morning. 90 tablet 03/21/2025 atorvastatin (LIPITOR) 10 mg tablet Take 1 tablet (10 mg total) by mouth 1 (one) time each day. 90 tablet 03/21/2025 amLODIPine (NORVASC) 5 mg tablet Take 1 tablet (5 mg total) by mouth 1 (one) time each day. 90 each 03/21/2025 documented in this encounter Progress Notes * Danny Dobson MD - 03/21/2025 10:00 AM EDT Annual Wellness Visit Health Maintenance Due Topic Date Due ??? Hepatitis C Screening Never done Adult vaccinations: CDC Recommendations Resources for Educating Adult Patients about Vaccines CDC * Danny Dobson MD - 03/21/2025 10:00 AM EDT CHIEF COMPLAINT: Medicare Annual Wellness Visit Subsequent IDENTIFIER: Kalyn Baum is a 80 y.o. old female. HPI: Patient presents today for annual physical exam. History of Present Illness The patient presents for an annual wellness visit. She reports no recent hospitalizations or emergency room visits. Her last annual wellness visit wasapproximately a year ago. She has not received the RSV vaccine but has recently had the influenza and COVID-19 vaccines. She is up to date with her dental check-ups. She has had a partial hysterectomy and is up to date on cervical cancer screening. She had a colonoscopy in 11/2024 and was told she d oes not need another one unless she has a problem. She reports no history of depression. She lives alone, her 2 years ago. She has no children. Her niece lives in the area and her sisterlives up in the [facility]. She has been managing diabetes since 1991 and has not experienced any complications from it. She regularly visits an eye doctor, medical biller, and dentist. She reports no leg swelling, open wounds on her feet, or toenail discoloration. She is scheduled to see a medical biller next month. She injects insulin in her arms, legs, and abdomen and has noticed bruising at the injection sites. She always pinches the skin and goes just under. She is currently on Jardiance 25 mg daily, Lantus insulin 30 units at night, and metformin 1000 mg twice daily for diabetes management. Her blood sugar levels have been elevated recently. She had requested a renewal of her blood strips prescription in 12/2024, which was initially denied by her insurance due to a missing CMN form required by Medicare. She had enoughstrips until mid-01/2025. In mid-01/2025, her machine broke, and she was unable to monitor her blood sugar levels. She was informed that she needed to get a new machine. She also experienced severe pain in her right arm when she slept that night. She made an appointment with Nereida Mata, who evaluated her and ordered some liniment cream, which helped. An x-ray was done, and she was diagnosed witharthritis, which she already knew she had. Nereida Mata ordered a new machine for her, but it came without strips. She went back to [facility] and was told that they would notify the doctor's office again. This happened in 02/2025. She finally got a copy of the form from [facility] and brought it to the doctor's office herself. The form was signed and scanned back to [facility] in 03/2025. She received her strips, but she is concerned about having to go through this process every time she renews her prescription. She has six refills left. She is currently on amlodipine 5 mg daily, losartan 100 mg daily, and hydrochlorothiazide 25 mg daily for hypertension management. Her blood pressure readings at home have been within the normal range, typically around 120 systolic. She does not experience elevated blood pressure in medical settings. She is currently on aspirin 81 mg daily for heart protection. She is currently on atorvastatin 10 mg daily for high cholesterol management. She is currently on levothyroxine 100 mcg daily for hypothyroidism management. She is currently on Orencia for psoriatic arthritis infusion treatment. She uses Voltaren gel as needed for shoulder pain and applies it on her hands and knees for arthritis. She is scheduled to receive an infusion tomorrow at rheumatology in [place]. She has very bad back issues and goes to family physiatry. Social History: Marital Status: Living Condition: Lives alone PAST SURGICAL HISTORY: Partial hysterectomy Colonoscopy in 11/2024 FAMILY HISTORY Her mother of cancer, which started as uterine cancer and later spread to her kidney, leading to renal failure. ROS: The remainder of review of systems is noncontributory. PAST MEDICAL HISTORY: Patient Active Problem List Diagnosis Date Noted Stenosis of right carotid artery 12/19/2024 Psoriatic arthritis ([facility] V24, [facility] V28) 12/19/2024 Status post total right knee replacement 05/09/2024 Diabetes mellitus with hyperglycemia, with long-term current use of insulin ([facility] V24, [facility] V28) 04/02/2024 Degenerative lumbar spinal stenosis 10/31/2023 Primary osteoarthritis of left knee 10/31/2023 Psoriasis 10/28/2023 Hypertension 03/25/2023 Hyperlipidemia 03/25/2023 Type 2 diabetes mellitus, without long-term current use of insulin ([facility] V24, [facility] V28) 03/25/2023 Hypothyroidism 03/25/2023 Complete tear of radial collateral ligament of metacarpophalangeal (MCP) joint of finger 11/15/2022 Dupuytren's contracture of right hand 11/15/2022 Primary osteoarthritis of first carpometacarpal joint of right hand 11/15/2022 Cerebral aneurysm, nonruptured 09/14/2022 Brain aneurysm 09/08/2022 Obesity 03/25/2022 SOCIAL HISTORY: Social History Tobacco Use Smoking status: Never Passive exposure: Never Smokeless tobacco: Never Substance Use Topics Alcohol use: Never Comment: rarely FAMILY HISTORY: Family Status Relation Name Status Mother Father Sister twin sister Alive Brother oldest brother Brother youngest brother Brother Marcell Alive No partnership data on file Family History Problem Relation Name Age of Onset Other (malignant neoplasm of kidney) Mother Other (cardiac disorder) Father Subarachnoid hemorrhage Father Uterine cancer Mother 52.00 Brain Aneurysm Father 56.00 Hypertension Sister twin sister Arthritis Sister twin sister Brain Aneurysm Brother oldest brother Brain Aneurysm Brother youngest brother Brain Aneurysm Brother Marcell ACTIVE MEDICATIONS: Outpatient Medications Marked as Taking for the 03/21/25 encounter (Office Visit) with Danny Dobson MD Medication Sig Dispense Refill abatacept (ORENCIA) 125 mg/mL injection Inject 8 mL (1,000 mg total) under the skin every 30 (thirty) days. amLODIPine (NORVASC) 5 mg tablet Take 1 tablet (5 mg total) by mouth 1 (one) time each day. 90 each0 aspirin 81 mg chewable tablet Chew 1 tablet (81 mg total). atorvastatin (LIPITOR) 10 mg tablet Take 1 tablet (10 mg total) by mouth 1 (one) time each day. 90 tablet 0 blood-glucose meter kit Use daily or as directed for monitoring of diabetes. 1 each 0 cholecalciferol, vitamin D3, 250 mcg (10,000 unit) tablet Take 250 mcg by mouth. diabetic [facility] [place] Glucose Testing Supplies ( meter, test strips, lancing device, control solution, lancets, meter battery) TEST TWICE A DAY 1 each 3 diclofenac (VOLTAREN) 1 % topical gel Apply 2 gram four times daily to affected joint 100 g 0 empagliflozin (JARDIANCE) 25 mg tablet Take 1 tablet (25 mg total) by mouth 1 (one) time each day in the morning. 90 tablet 0 glucose blood test strip Check blood glucose twice daily 100 strip 6 hydroCHLOROthiazide (HYDRODIURIL) 25 mg tablet Take 1 tablet (25 mg total) by mouth 1 (one) time each day. 90 each 0 insulin syringe-needle U-100 1 mL 31 gauge x 5/16 syringe USE TO INJECT INSULIN ONCE DAILY DIRECTED 100 each 1 lancets lancets Use to check blood glucose twice daily 100 each 1 Lantus U-100 Insulin 100 unit/mL injection INJECT 30 UNITS SUBCUTANEOUSLY AT BEDTIME 40 mL 3 levothyroxine (SYNTHROID, LEVOTHROID) 100 mcg tablet Take 1 tablet (100 mcg total) by mouth 1 (one)time each day. before breakfast 90 each 0 losartan (COZAAR) 100 mg tablet Take 1 tablet (100 mg total) by mouth 1 (one) time each day. 90 each 0 metFORMIN (GLUCOPHAGE) 1,000 mg tablet Take 1 tablet (1,000 mg total) by mouth 2 (two) times a day with meals. 180 tablet 1 [DISCONTINUED] amLODIPine (NORVASC) 5 mg tablet Take 1 tablet (5 mg total) by mouth 1 (one) time each day. 90 each 1 [DISCONTINUED] atorvastatin (LIPITOR) 10 mg tablet Take 1 tablet (10 mg total) by mouth 1 (one) time each day. 90 tablet 1 [DISCONTINUED] empagliflozin (JARDIANCE) 25 mg tablet Take 1 tablet (25 mg total) by mouth 1 (one) time each day in the morning. 90 tablet 1 [DISCONTINUED] hydroCHLOROthiazide (HYDRODIURIL) 25 mg tablet Take 1 tablet (25 mg total) by mouth 1 (one) time each day. 90 each 1 [DISCONTINUED] levothyroxine (SYNTHROID, LEVOTHROID) 100 mcg tablet Take 1 tablet (100 mcg total) by mouth 1 (one) time each day. before breakfast 30 tablet 2 [DISCONTINUED] losartan (COZAAR) 100 mg tablet Take 1 tablet (100 mg total) by mouth 1 (one) time each day. 90 each 1 [DISCONTINUED] metFORMIN (GLUCOPHAGE) 1,000 mg tablet Take 1 tablet (1,000 mg total) by mouth 2 (two) times a day with meals. 180 tablet 1 ALLERGIES: Codeine and Gabapentin PHYSICAL EXAM: Blood pressure (!) 141/70, pulse 74, temperature 36.1 ??C (97 ??F), resp. rate 12, height 1.626 m (64 ), weight 96.2 kg (212 lb). Body mass index is 36.39 kg/m??. BMI is greater than 25.0 (above the normal range) - see Plan Physical Exam General Appearance: Normal. Vital signs: Within normal limits. HEENT: Ears: Small amount of cerumen noted bilaterally. Mouth/Throat: Oropharynx clear. Respiratory: Clear to auscultation, no wheezing, rales or rhonchi. Cardiovascular: Regular rate and rhythm, no murmurs, rubs, or gallops. Gastrointestinal: Soft, no tenderness, no distention, no masses. Skin: Warm and dry, no rash. Neurological: Normal. LABS/IMAGING: Lab Results Component Value Date WBC 10.4 02/22/2025 HGB 15.5 02/22/2025 HCT 47.4 (H) 02/22/2025 MCV 94.0 02/22/2025 Lab Results Component Value Date NA 136 03/13/2025 K 4.4 03/13/2025 CO2 30 03/13/2025 CL 102 03/13/2025 BUN 16 03/13/2025 ALKPHOS 69 03/13/2025 Lab Results Component Value Date CHOL 154 12/12/2024 LDL 54 10/17/2023 HDL 55 12/12/2024 TRIG 140 12/12/2024 Lab Results Component Value Date TSH 3.23 12/12/2024 Results Labs - A1c: 7.6 - Liver function test: Normal - Kidney function test: Normal - Electrolytes: Normal - Urine protein: Normal - Complete Blood Count (CBC): 02/2025, Slight increase in red blood cells - White Blood Cell Count: 10/2024, Improved IMPRESSION: 1. Encounter for subsequent annual wellness visit (AWV) in Medicare patient 2. Class 2 severe obesity due to excess calories with serious comorbidity and body mass index (BMI)of 36.0 to 36.9 in adult ([facility] V24, [facility] V28) 3. Primary hypertension 4. Psoriatic arthritis ([facility] V24, [facility] V28) 5. Type 2 diabetes mellitus with hyperglycemia, with long-term current use of insulin ([facility] V24,[facility] V28) 6. Hyperlipidemia, unspecified hyperlipidemia type PLAN: 1. Health maintenance: The patient presented for an evaluation of general health. As part of this visit, we reviewed the following issues, which are considered an essential part of preventative health in this age group: - Breast cancer screening, which includes clinical exam and mammograms annually - mammogram up-to-date. May discontinue at age 70 at discretion of patient and provider. - Colon cancer screening (colonoscopy every 10 years/annual FOBT plus flexi sigmoidoscopy every 5 years/double-contrast BE every 5 years/Cologuard every 3 years/Annual FOBT) - up to date. May discontinue at age 80 at the discretion of patient and provider. - Cervical cancer testing every 1-5 years - no longer indicated - OVER 65 YEARS - prior testing were unremarkable. May discontinued at age 65 at the discretion of the patient and provider. - Blood pressure annual screening performed - Cholesterol screening every five years - ordered - Osteoporosis prevention including calcium/vitamin D intake, weight bearing exercise & smokingcessation - Nutritional and exercise counseling - patient advised to pursue at least 30 minutes of exercise most days of the week, limit portion sizes, eat breakfast, and avoid eating after dinner - Screening for depression - no history - Screening for Type 2 diabetes mellitus in those with hypertension and/or hyperlipidemia - Prevention of and/or testing for infectious diseases, which may include Chlamydia, Gonorrhea, Syphilis, HIV, Hepatitis C and Tuberculosis - advice about STD prevention provided - One time hepatitis C screening in all adults - Education about skin cancer - Recommendations about immunizations - patient is due for RSV vaccination but defers this - Recommendation of an eye exam for glaucoma every 2-4 years in this age range - patient is up-to-date - Osteoporosis screening for all patients regardless of risk - Screening for substance abuse (including tobacco, alcohol, and recreational drugs) - see Substance & Sexuality section of medical record - Genetic cancer risk screening - NO INDICATION: Hereditary Cancer Syndrome Risk Assessment completed and evaluated. No indication found for genetic testing at this time. - In addition to reviewing these issues, I have reviewed the following sections of the chart: Past Medical History, Social History, and Social History - Did you have a dental problem in the last 6 months? Yes - Did you have a dental visit in the last 12 months? No Assessment & Plan 1. Annual wellness visit: - Blood pressure is slightly elevated today, and body mass index falls within the obesity range. - A1c level has increased to 7.6. Liver, kidney, and electrolyte levels are within normal limits. Urine protein levels are normal. Complete blood count conducted in 02/2025 revealed a slight increasein red blood cells. White blood cell count has improved since 10/2024. - Recheck of complete blood count and thyroid function will be conducted during the next set of blood work. Counseling provided regarding RSV vaccine. 2. Hypertension, CONTROLLED - Blood pressure is slightly elevated today. Repeat BP was normal - Blood pressure will be rechecked before she leaves today. - Currently taking amlodipine 5 mg daily, losartan 100 mg daily, and hydrochlorothiazide 25 mg daily for hypertension. 3. Diabetes mellitus: - A1c level has increased to 7.6 % (Blood glucose control above goal) - Issues with obtaining blood glucose test strips due to insurance paperwork have been resolved. Diabetes will be reassessed during the next set of blood work. - Currently taking Jardiance 25 mg daily, Lantus insulin 30 units at night, and metformin 1000 mg twice daily for diabetes management. New prescription for metformin has been sent today. 4. Psoriatic arthritis: - Receiving Orencia infusions for psoriatic arthritis and has an appointment for an infusion tomorrow. 5. Hypothyroidism: - Thyroid function will be assessed during the next set of blood work. - Currently taking levothyroxine 100 mcg daily for hypothyroidism management. 6. Hyperlipidemia: - Currently taking atorvastatin 10 mg daily for high cholesterol management. 7. Health maintenance: - Counseling provided regarding RSV vaccine. Recently had a colonoscopy in 11/2024 and does not need another one unless experiencing persistent constipation or blood in the stool. - Advised to receive the RSV vaccine at her local pharmacy. Follow-up: She will follow up in 3 months with fasting blood work to be done a week prior to the visit. Orders Placed This Encounter Procedures CBC and differential Standing Status: Future Standing Expiration Date: 03/21/2026 Thyroid stimulating hormone with reflex to free t4 and free t3 Standing Status: Future Standing Expiration Date: 03/21/2026 Comprehensive metabolic panel Standing Status: Standing Number of Occurrences: 5 Standing Expiration Date: 03/21/2026 Order Specific Question: Has the Patient Fasted? Answer: No Hemoglobin A1c Standing Status: Standing Number of Occurrences: 5 Standing Expiration Date: 03/21/2026 Lipid panel with reflex to direct LDL Standing Status: Standing Number of Occurrences: 5 Standing Expiration Date: 03/21/2026 Microalbumin creatinine urine ratio Standing Status: Standing Number of Occurrences: 5 Standing Expiration Date: 03/21/2026 Hepatitis C antibody Standing Status: Future Standing Expiration Date: 03/21/2026 Order Specific Question: Is this test being used for Screening (absence of signs and/or symptoms) OR Diagnostic (signs/symptoms are present) purposes? Answer: Screen Order Specific Question: Release to patient Answer: Immediate [1] Danny Dobson MD on 03/21/2025 at 10:20 AM EDT documented in this encounter Plan of Treatment Upcoming Encounters Date Type Department Care Team (Late st Contact Info) Description 04/18/2025 9:30 AM EDT Office Visit [facility] [place] [address] [phone] Quinton Saleem MD [address] [address] 06/12/2025 1:00 PM EST Office Visit [facility] [place] [address] [phone] Cesar Le DPM [address] [address] 07/24/2025 9:45 AM EST Office Visit Adult [address] [phone] Danny Dobson MD [address] [place] [address] 03/26/2026 10:00 AM EDT Office Visit [address] [phone] Danny Dobson MD [address] [place] [address] Scheduled Orders Name Type Priority Associated Diagnoses Orde r Schedule CBC and differential Lab Routine Encounter for subsequent annual wellness visit (AWV) in Medicare patient 1 Occurrences starting 03/21/2025 until 03/21/2026 Thyroid stimulating hormone with reflex to free t4 and free t3 Lab Routine Encounter for subsequent annual wellness visit (AWV) in Medicare patient 1 Occurrences starting 03/21/2025 until 03/21/2026 Comprehensive metabolic panel Lab Routine Encounter for subsequent annual wellness visit (AWV) in Medicare patient Every 12 weeks for 5 Occurrences starting 03/21/2025 until 03/21/2026 Hemoglobin A1c Lab Routine Encounter for subsequent annual wellness visit (AWV) in Medicare patient Every 12 weeks for 5 Occurrences starting 03/21/2025 until 03/21/2026 Lipid panel with reflex to direct LDL Lab Routine Encounter for subsequent annual wellness visit (AWV) in Medicare patient Every 12 weeks for 5 Occurrences starting 03/21/2025 until 03/21/2026 Microalbumin creatinine urine ratio Lab Routine Encounter for subsequent annual wellness visit (AWV) in Medicare patient Every 12 weeks for 5 Occurrences starting 03/21/2025 until 03/21/2026 Hepatitis C antibody Lab Routine Encounter for subsequent annual wellness visit (AWV) in Medicare patient 1 Occurrences starting 03/21/2025 until 03/21/2026 documented as of this encounter Goals Goal [...] documented as of this encounter Visit Diagnoses Diagnosis Encounter for subsequent annual wellness visit (AWV) in Medicare patient- Primary Class 2 severe obesity due to excess calories with serious comorbidity and body mass index (BMI) of 36.0 to 36.9 in adult Primary hypertension Unspecified essential hypertension Psoriatic arthritis (CMS/HCC V24, CMS/[facility] V28) Psoriatic arthropathy Type 2 diabetes mellitus with hyperglycemia, with long-term current use of insulin (CMS/HCC V24, CMS/[facility] V28) Hyperlipidemia, unspecified hyperlipidemia type Routine general medical examination at a health care facility documented in this encounter Discontinued Medications Medication Sig Discontinue Reason Start Date End Da te metFORMIN (GLUCOPHAGE) 1,000 mg tablet Take 1 tablet (1,000 mg total) by mouth 2 (two) times a day with meals. Reorder 09/18/2024 03/21/2025 amLODIPine (NORVASC) 5 mg tablet Take 1 tablet (5 mg total) by mouth 1 (one) time each day. Reorder 12/19/2024 03/21/2025 atorvastatin (LIPITOR) 10 mg tablet Take 1 tablet (10 mg total) by mouth 1 (one) time each day. Reorder 12/19/2024 03/21/2025 hydroCHLOROthiazide (HYDRODIURIL) 25 mg tablet Take 1 tablet (25 mg total) by mouth 1 (one) time each day. Reorder 12/19/2024 03/21/2025 empagliflozin (JARDIANCE) 25 mg tablet Take 1 tablet (25 mg total) by mouth 1 (one) time each day in the morning. Reorder 12/19/2024 03/21/2025 losartan (COZAAR) 100 mg tablet Take 1 tablet (100 mg total) by mouth 1 (one) time each day. Reorder 12/19/2024 03/21/2025 levothyroxine (SYNTHROID, LEVOTHROID) 100 mcg tablet Take 1 tablet (100 mcg total) by mouth 1 (one) time each day. before breakfast Reorder 12/19/2024 03/21/2025 documented as of this encounter Additional Health Concerns Assessment Noted Time PHQ-9 Depression Total Score: 0 09/12/19 25 11:56 AM EDT documented as of this encounter Care Teams Lamina Searcher Relationship Specialty Start Date End Date Danny Dobson MD [address] [place] [address] PCP - General 02/17/24 documented as of this encounter
--- NOTE | 2025-03-22 08:37 | MHC.OFFVIS ---
Vital Signs 03/22/25 08:44 Height 5 ft 4 in Weight 214 lb 1.102 oz BMI 36.7 BP 140/80 H Blood Pressure Location Lt brachial Position Sitting Pulse 78 Pulse Source Pulse Oximeter Pulse Oximetry (%) 98 Oxygen Delivery Method Room Air Intake Visit Reasons: F/u PsO and PsA Intake Note: Patient presents for PsO and PsA follow up. Allergies gabapentin Allergy (Mild, Verified 03/22/25 08:43) Rash codeine Adverse Reaction (Intermediate, Verified 03/22/25 08:43) Constipation HPI Comments Details: Patient is a 80-year-old female with hypertension, hyperlipidemia, diabetes, hypothyroidism, polyarticular osteoarthritis (hands and knees Dr. Jimenez right knee replacement) and psoriasis complicated by psoriatic arthritis here today for follow up Interval History: Patient last seen 10/30/24 with me - On Orencia infusion 1000mg IV every 4 weeks - Unfortunately due to issues with the doses, has been getting 750mg instead of 1000mg - Finally started the 1000mg 10/26/24 - Doing well overall - Intermittent pain and swelling Today - On Orencia infusion 1000mg IV every 4 weeks - Complaining of joint pain and PsO rash Rheumatologic History: On Orencia infusions since 2013 Initial history by Alana Craven Ms. Baum 78yoF presents for transfer of care from [place]. Per patient, she was diagnosed with PsA with PsO about 10 years, and was being treated with Orencia infusion. --psoriasis arthritis and PsO --last infusion Apr 28, 2023 --right elbow small scaly patch --hands mild swelling and moderate tenderness to thumbs and medial wrists. soreness to DIPs, achilles and knees --no GI or Uveiitis --pending bilateral knee surgeries after A1C controlled. Returns in January to reassess. Current Rheumatology Medication(s): Orencia infusion 1000 mg IV every 4 weeks [facility] Medical History Psoriasis Long-term use of immunosuppressant medication Lymph node abscess Hx of colonic polyp Post-menopausal Psoriatic arthritis Mixed hyperlipidemia Essential (primary) hypertension Type 2 diabetes mellitus with insulin therapy Surgical History H/O: knee surgery History of appendectomy History of tonsillectomy History of partial hysterectomy Family History Mother Cancer Father Abdominal aneurysm Social History Alcohol intake: never Patient Tobacco Use Status: Never used Tobacco Review of Systems Const Details: Review of Systems Constitutional: Denies fever, chills, weight loss ENT: Denies vision changes, eye pain or eye redness, dental caries, dry mouth GI: Denies nausea, vomiting, diarrhea, abdominal pain, change in BM Pulm: Denies SOB, FERNANDES, hemoptysis, wheezing Cards: Denies chest pain, palpitations Skin: Denies Raynaud's, rash, nail changes, photosensitivity, [employer]: Denies headaches, weakness, paresthesias, recurrent falls MSK: as per HPI All other systems reviewed and are unremarkable except noted above Physical Exam Exam Exam: Vital signs reviewed Physical Examination CONSTITUITIONAL Patient alert and cooperative. Well appearing and in no apparent painful distress MSK Hands Right Hand: Able to make a fist. No swelling or tenderness to palpation of the MCPs, PIPs or DIPs. Left Hand: Able to make a fist. No swelling or tenderness to palpation of the MCPs, PIPs or DIPs. Herbedens nodes noted bilaterally Wrists Right Wrist: Full ROM to flexion and extension. No swelling or TTP Left Wrist: Full ROM to flexion and extension. No swelling or TTP Elbows Right Elbow: Full ROM. No swelling or TTP. No TTP of the medial epicondyle. No TTP of the lateral epicondyle Left Elbow: Full ROM. No swelling or TTP. No TTP of the medial epicondyle. No TTP of the lateral epicondyle Shoulders Right shoulder: No swelling noted. No TTP of the AC joint. No TTP of the subacromial bursa. No TTP of the posterior shoulder Left shoulder: No swelling noted. No TTP of the AC joint. No TTP of the subacromial bursa. No TTP of the posterior shoulder Knees Right knee: Full ROM. No swelling noted. No TTP of the knee joint line. No TTP of pes anserine bursa Left knee: Full ROM. No swelling noted. No TTP of the knee joint line. No TTP of pes anserine bursa. Crepitations felt bilaterally Ankles Right ankle: Good ankle dorsiflexion and plantar flexion. No swelling. No TTP of the ankle joint Left ankle: Good ankle dorsiflexion and plantar flexion. No swelling. No TTP of the ankle joint Feet Right foot: Negative squeeze test Left foot: Negative squeeze test Tender points? No tenderness to palpation of the bilateral trapezius, supraspinatus, anterior costochondral junctions, bilateral suboccipital muscle insertions SKIN PsO in bilateral ears Vital Signs: Last Vital Signs Pulse 78 03/22/25 08:44 BP 140/80 H 03/22/25 08:44 Pulse Ox 98 03/22/25 08:44 Oxygen Delivery Method Room Air 03/22/25 08:44 BMI result Body Mass Index 36.7 Results Reviewed Results Reviewed: Laboratory Tests 03/18/25 10:38 WBC 10.5 RBC 4.85 Hgb 15.1 Hct 45.1 Plt Count 233 ESR 14 Sodium 140 Potassium 3.9 Chloride 102 Carbon Dioxide 29 BUN 22 H Creatinine 0.69 AST 23 ALT 19 C-Reactive Protein 0.14 Laboratory Tests 10/22/24 11:38 Hepatitis A IgM Ab Nonreactive Hep Bs Antigen Negative Hep Bs Antibody NONREACTIVE Hep B Core Total Ab Nonreactive Hepatitis C Ab (EIA) Nonreactive TB Test (T-Spot) Com Negative Assessment & Plan Assessment & Plan (1) Psoriatic arthritis: Comment: on orencia infusions since 2013 Code(s): L40.50 - Arthropathic psoriasis, unspecified Category: Medical Plan: #PsO/PsA Patient is a 80-year-old female with psoriasis complicated by psoriatic arthritis on Orencia infusions here today for follow up. Getting breakthrough psoriatic rashes. Has never been on anything other than Orencia which is what she was started on back in 2013 when she was diagnosed. 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 Plan: #Long-term Use of TNF Inhibitors: Humira Discussed with the patient the benefits and risks of TNF inhibitors for the management of the rheumatic condition Benefits include reduce pain, maintenance of remission and reduction of flares as well as progression of the disease Risks include injection sites/infusion reactions, serious infections (such as bacterial infections, opportunistic infections), malignancy, delaminating syndromes, autoimmune phenomena, CHF exacerbations, palmar plantar psoriasis and cytopenias Recommended rotating injection sites, and holding medication during and for up to 1 week after resolution of a febrile illness or open skin wound Plan I spent 30 minutes reviewing the record and labs, taking a history, examining the patient, discussing the treatment plan, ordering diagnostic work up and documenting in the medical record Coding Level of Care Code Est Pt Level 4 (44181) Complex EM visit Add On G2211 Diagnoses Psoriatic arthritis L40.50 Encounter for monitoring of adalimumab therapy Z51.81; Z79.620
[2025-03-22 08:44] VITALS: BP 140/80; PULSE 78; O2SAT 98; BMI 36.7
--- OUTSIDE RECORDS SUMMARY | 2025-03-22 09:01 | XMS_ITS | Encounter Summary ---
Author Organization [facility] Address [address] [place] [address] Care Team Providers Care Cable Tender Name Role Phone Danny Dobson MD Primary Care Provider Encounter Details Date Type Department Care Team ([facility] st Contact Info) Description 03/06/2025 Telephone Adult Medicine [address] [phone] Diana Yarbrough, RUDY Social History Tobacco Use [...] care for your loved ones. For example, special needs child caregiver or elderly care for an older adult? [...] 9:30 AM EDT Office Visit Orthopedic [place] [phone] [phone] Quinton Saleem MD [address] [address] 06/12/2025 1:00 PM EST Office Visit Orthopedic Surgery [place] [phone] [phone] Cesar Le DPM [address] [address] 07/24/2025 9:45 AM EST Office Visit Adult [address] [phone] Danny Dobson MD [address] [place] [address] 03/26/2026 10:00 AM EDT Office Visit [address] [phone] Danny Dobson MD [address], [place] [phone] documented as of this encounter Goals Goal [...] documented as of this encounter Care Teams Cable Tender Relationship Specialty Start Date End Date Danny Dobson MD [address] [place] [address] PCP - General 02/17/24 documented as of this encounter
--- OUTSIDE RECORDS SUMMARY | 2025-03-22 09:01 | XMS_ITS | Clinical Summary ---
Author Organization [facility] Address [address] [place] [address] Phone Care Team Providers Care President Sales And Marketing Name Role Phone Danny Dobson MD Primary Care Provider [phone] Allergies Active Allergy Reactions Criticality Noted Date Comments Codeine Nausea Only 03/25/2022 Gabapentin Rash Low 06/07/2024 Medications diabetic supplies, [facility] Glucose Testing Supplies ( meter, test strips, [...] tablet (81 mg total). 04/24/20 24 Active Lantus U-100 Insulin 100 unit/mL injectionIndic ations:Type 2 diabetes mellitus with other specified complication, without long-term current use of insulin ([facility] V24, CMS/[facility] V28) INJECT 30 UNITS SUBCUTANEOUSLY AT BEDTIME 40 mL 3 12/07/19 25 Active insulin syringe-needle U-100 1 mL 31 gauge x 5/16 syringe USE TO INJECT INSULIN ONCE DAILY DIRECTED 100 each 1 12/20/19 25 Active diclofenac (VOLTAREN) 1 % topical gel Apply 2 gram four times daily to affected joint 100 g 02/06/20 Active glucose blood test stripIndicatio ns:Diabetes Check blood glucose twice daily 100 strip 6 02/12/20 Active lancets lancetsIndicat ions:Diabetes Use to check blood glucose twice daily 100 each 1 02/12/20 25 Active blood-glucose meter kit Use daily or as directed for monitoring of diabetes. 1 each 02/14/20 25 026 Active amLODIPine (NORVASC) 5 mg tablet Take 1 tablet (5 mg total) by mouth 1 (one) time each day. 90 each 03/21/20 25 Active atorvastatin (LIPITOR) 10 mg tablet Take 1 tablet (10 mg total) by mouth 1 (one) time each day. 90 tablet 03/21/20 25 Active empagliflozin (JARDIANCE) 25 mg tablet Take 1 tablet (25 mg total) by mouth 1 (one) time each day in the morning. 90 tablet 03/21/20 25 Active hydroCHLOROthi azide (HYDRODIURIL) 25 mg tablet Take 1 tablet (25 mg total) by mouth 1 (one) time each day. 90 each 03/21/20 25 Active levothyroxine (SYNTHROID, LEVOTHROID) 100 mcg tablet Take 1 tablet (100 mcg total) by mouth 1 (one) time each day. before breakfast 90 each 03/21/20 25 025 Active losartan (COZAAR) 100 mg tablet Take 1 tablet (100 mg total) by mouth 1 (one) time each day. 90 each 03/21/20 25 Active metFORMIN (GLUCOPHAGE) 1,000 mg tablet Take 1 tablet (1,000 mg total) by mouth 2 (two) times a day with meals. 180 tablet 1 03/21/20 25 Active metFORMIN (GLUCOPHAGE) 1,000 mg tablet Take 1 tablet (1,000 mg total) by mouth 2 (two) times a day with meals. 180 tablet 1 09/19/19 25 025 Discontin ued(Reord er) amLODIPine (NORVASC) 5 mg tablet Take 1 tablet (5 mg total) by mouth 1 (one) time each day. 90 each 1 12/20/19 25 025 Discontin ued(Reord er) atorvastatin (LIPITOR) 10 mg tablet Take 1 tablet (10 mg total) by mouth 1 (one) time each day. 90 tablet 1 12/20/19 25 025 Discontin ued(Reord er) hydroCHLOROthi azide (HYDRODIURIL) 25 mg tablet Take 1 tablet (25 mg total) by mouth 1 (one) time each day. 90 each 1 12/20/19 25 025 Discontin ued(Reord er) empagliflozin (JARDIANCE) 25 mg tablet Take 1 tablet (25 mg total) by mouth 1 (one) time each day in the morning. 90 tablet 1 12/20/19 25 025 Discontin ued(Reord er) losartan (COZAAR) 100 mg tablet Take 1 tablet (100 mg total) by mouth 1 (one) time each day. 90 each 1 12/20/19 25 025 Discontin ued(Reord er) levothyroxine (SYNTHROID, LEVOTHROID) 100 mcg tablet Take 1 tablet (100 mcg total) by mouth 1 (one) time each day. before breakfast 30 tablet 2 12/20/19 025 Discontin ued(Reord er) Active Problems Problem Noted Date Diagnosed Date Stenosis of right carotid artery 12/19/2024 Psoriatic arthritis ([facility] V24, [facility] V28) 0 12/19/2024 Status post total right knee replacement 024 Diabetes mellitus with hyper glycemia, with long-term current use of insulin ([facility] V24, [facility] V28) 04/02/2024 Overview (04/02/2024): Uncontrolled Degenerative lumbar spinal stenosis 10/31/2023 Primary osteoarthritis of left knee 10/31/2023 Psoriasis 10/28/2023 Hypertension 03/25/2023 Assessment & Plan (03/25/2023 9:26 AM EDT): Continue with BP meds Hyperlipidemia 03/25/2023 Type 2 diabetes mellitus, wi thout long-term current use of insulin (CMS/[facility] V24, [facility] V28) 03/25/2023 Assessment & Plan (03/25/2023 9:25 [...] of right knee 10/31/2023 12/31/2024 Rheumatoid arthritis ([facility] V24, [facility] V28) 03/25/2023 12/19/2024 Acquired hammertoe of left foot 03/25/2022 09/15/2022 Acquired hammertoe of right foot 03/25/2022 09/15/2022 Allergic rhinitis 03/25/2022 09/15/2022 Contusion of great toe, left 03/25/2022 09/15/2022 Diabetes mellitus ([facility] V24, [facility] V28) 09/15/2022 Diabetic peripheral neuropat hy ([facility] V24, [facility] V28) 03/25/2022 09/15/2022 Fatigue 03/25/2022 09/15/2022 Foot pain 03/25/2022 09/15/2022 Fracture of phalanx of toe 03/25/2022 0 09/15/2022 Hyperlipidemia associated wi th type 2 diabetes mellitus ([facility] V24, [facility] V28) 03/25/2022 09/15/2022 Hyperlipidemia 03/25/2022 09/15/2022 Hypertension [...] obesity with BMI of 4 0.0-44.9, adult ([facility] V24, [facility] V28) 03/25/2022 09/15/2022 Encounters Date Type Department Care Team Description 03/21/2025 10:00 AM EDT Office Visit Adult Medicine [address] [phone] aDnny Dobson MD Encounter for subsequent annual wellness visit (AWV) in Medicare patient (Primary Dx); Class 2 severe obesity due to excess calories with serious comorbidity and body mass index (BMI) of 36.0 to 36.9 in adult (CMS/HCC V24, CMS/HCC V28); Primary hypertension; Psoriatic arthritis (CMS/HCC V24, CMS/HCC V28); Type 2 diabetes mellitus with hyperglycemia, with long-term current use of insulin ([facility] V24, [facility] V28); Hyperlipidemia, unspecified hyperlipidemia type; Routine general medical examination at a health care facility 03/06/2025 Telephone Adult Medicine [address] [phone] Diana Yarbrough RN 02/22/2025 9:57 AM EDT - 02/22/2025 11:59 PM EDT Hospital Encounter Radiology Department - [address] [phone] Encounter for screening mammogram for breast cancer Discharge Disposition: Home or Self Care 02/13/2025 Telephone Adult [address] [phone] Danny Dobson MD 02/11/2025 Telephone Adult [address] [phone] Danny Dobson MD 02/05/2025 9:13 AM EDT - 02/05/2025 11:59 PM EDT Hospital Encounter XRAY [address] [phone] Acute pain of right shoulder Discharge Disposition: Home or Self Care 02/05/2025 8:45 AM EDT Office Visit Adult Medicine [address] [phone] Hammad Mata NP Acute pain of right shoulder (Primary Dx); Type 2 diabetes mellitus with other specified complication, without long-term current use of insulin ([facility] V24, [facility] V28) 02/05/[address] [phone] Hammad Mata NP 12/31/2024 10:00 AM EDT Office Visit Orthopedic Surgery - [address] [phone] Quinton Saleem MD Status post total right knee replacement (Primary Dx); Chronic pain of right knee; Primary osteoarthritis of left knee; Degenerative lumbar spinal stenosis 12/26/2024 5:21 PM EDT - 12/26/2024 11:59 PM EDT Hospital Encounter Radiology Department - [address] [phone] Stenosis of right carotid artery Discharge Disposition: Home or Self Care from Last 3 Months Immunizations Name Administration [...] WISDOM TEETH EXTRACTION KNEE ARTHROSCOPY Bilateral PROCEDURE: [place] ARTHROSCOPY KNEE DIAGNOSTIC W/WO SYNOVIAL BX SPX; COMMENT: in [facility] OTHER SURGICAL HISTORY PROCEDURE: HISTORY OTHER; COMMENT: Brain aneurysm- coils placed- in [facility] in september 2022 BREAST BIOPSY Left PROCEDURE: BX BREAST; PERC NEEDLE CORE W/IMAG GUID; COMMENT: yrs ago-benign Medical History Medical History Date Comments Diabetes ([facility] V24, [facility] V28) HTN (hypertension) Hyperlipidemia Diabetes mellitus ([facility] V 24, [facility] V28) 03/25/2022 Diabetic peripheral neuropat hy (CMS/HCC V24, [facility] V28) 03/25/2022 Hypertension 03/25/2022 Primary osteoarthritis of fi rst carpometacarpal joint of left hand 03/25/2022 Vitamin D deficiency 03/25/2022 Anxiety 03/25/2022 Morbid obesity with BMI of 4 0.0-44.9, adult ([facility] V24, [facility] V28) 03/25/2022 Hypothyroidism 03/25/2022 Brain aneurysm DX:Brain [...] your loved ones. For example, child welfare worker or elderly care for an older [...] 12 03/21/2025 9:44 AM EDT Oxygen Saturation 98% 02/05/2025 8:28 AM EDT Inhaled Oxygen Concentration - - Weight 96.2 kg (212 lb) 03/21/2025 9:44 AM EDT Height 162.6 cm (5' 4 ) 03/21/2025 9:44 AM EDT Body Mass Index 36.39 03/21/2025 9:44 AM EDT Plan of Treatment Upcoming Encounters Date Type Department Care Team (Late st Contact Info) Description 04/18/2025 9:30 AM EDT Office Visit Orthopedic Surgery - [place] [address] [phone] Quinton Saleem MD 175 [facility] [address] [place] [phone] 06/12/2025 1:00 PM EST Office Visit Orthopedic Surgery - [place] 250 175 [facility] 250 [place] [phone] Cesar Le DPM [address] [phone] 07/24/2025 9:45 AM EST Office Visit [address] [phone] Danny Dobson MD [address] [place], [place] 03/26/2026 10:00 AM EDT Office Visit [address] [phone] Danny Dobson MD [address] [place], [place] Health Maintenance Due Date Last Done Comments Hepatitis C Screening 01/09/2022 Diabetes: Annual Foot Exam 07/04/2025 P ostponed from 01/29/1955 (Patient Refused) Diabetes: Annual Retina Eye Exam 07/04/2025 Postponed from [birth year]29/1955 (Patient Refused) Diabetes: Blood Sugar Control Test (HGBA1C) 09/10/2025 03/13/2025, 12/12/2024, 09/12/2024, Additional history exists Falls Risk Assessment 11/29/2025 11/29/2024 , 02/17/2024, 06/10/2022, Additional history exists RSV Immunization Adult Patients (1 - 1-dose 75+ series) 03/04/2026 Postponed from 2021 (Patient Refused) Diabetes: Annual Urine Albumin-Creatinine Ratio (uACR) 03/13/2026 03/13/2025, 12/12/2024, 09/12/2024, Additional history exists Diabetes: Annual GFR (Glomerular Filtration Rate) 03/13/2026 03/13/2025, 12/12/2024, 10/17/2024, Additional history exists Hypertension/CHF/CAD Annual BMP Blood Test 03/13/2026 03/13/2025, 12/12/2024, 10/17/2024, Additional history exists Social Influencers of Health Screening 03/14/2026 03/14/2025 Medicare Annual Wellness Visit 03/21/2026 03/21/2025 Cholesterol Screening (Lipid Panel) 12/12/2029 12/12/2024, 09/12/2024, 06/20/2024, Additional history exists DTaP,Tdap,and Td Vaccines (2 - Td or Tdap) 01/26/2031 01/26/2021 Osteoporosis Screening (Bone Density Screening) 07/10/2034 07/10/2024 Zoster Vaccines Completed 02/06/2023, 12/06/2022 Pneumococcal Vaccine: 50+ Years Completed 07/13/2024 Colorectal Cancer Screening: Colonoscopy Discontinued 11/29/2024, 07/25/2024 Depression Screening Completed 03/14/2025, 02/17/20 24 COVID-19 Vaccine Completed 03/18/2025, , 05/17/2023, Additional history exists Influenza Vaccine Completed 03/18/2025, , 03/22/2023, Additional history exists HIB Vaccines Aged Out No longer eligi [...] strengthening. (Met). Medical Devices Implanted Type Area Compressor Mechanic Bus Device Identifier Shelf Expiration Date Model / Serial / Lot Cath Iv Nexiva 20ga 1.25in - [id number] - [id number] Implanted:Qt y: 1 on 09/07/2022 at [facility] Central/Perip heral Catheters and Ports Right: Arm [employer] SYSTEM [id number] 05/03/2025 [id number] / [id number] / [id number] Coil Axium 3d 3qrx9aa Qc - [id number] - [id number] Implanted:Qt y: 1 on 09/14/2022 by Erickson Mckeon MD at [facility] Embolectomy Implants Right: Cerebrum [employer] - EV3 FKA COVD-EV3 [id number] 08/29/2023 QC-2-4- 3D / [id number] / [id number] Coil Axium 3d 3.5mm X 6cm Implanted:Qt y: 1 on 09/14/2022 by Erickson Mckeon MD at [facility] Embolectomy Implants Right: Brain [employer] - EV3 FKA COVD-EV3 08/20/2023 QC-3.5- 6-3D / [id number] / Stent Nf Atlass 3.0x21mm No Tip - [id number] - [id number] Implanted:Qt y: 1 on 09/14/2022 by Erickson Mckeon MD at [facility] Peripheral Vasc Bare Metal Stents Right: Cerebrum [employer] [id number] 03/29/2026 [id number] / [id number] / System Perclose Prostyle Suture Medicated - [id number] - [id number] Implanted:Qt y: 1 on 09/07/2022 at [facility] Vascular Closure Devices Right: Groin [employer] [id number] 05/03/2024 62222-3 3 / [id number] / [id number] System Perclose Prostyle Suture Medicated - [id number] - [id number] Implanted:Qt y: 1 on 09/14/2022 by Erickson Mckeon MD at [facility] Vascular Closure Devices Right: Groin [employer] [facility] [id number] 05/03/2024 20934-4 3 / [id number] / System Perclose Prostyle Suture Medicated - [id number] - [id number] Implanted:Qt y: 1 on 03/11/2023 by Lee Egan MD at [facility] Vascular Closure Devices Right: Groin [employer] [facility] [id number] 10/31/2024 38054-8 3 / [id number] / [id number] Procedures Procedure Name Priority Date/Time Associated Diagnosis Comments COMPREHENSIVE METABOLIC PANEL Routine 03/13/2025 9:13 AM EDT Type 2 diabetes mellitus without complication, with long-term current use of insulin ([facility] V24, [facility] V28) HEMOGLOBIN A1C Routine 03/13/2025 9:13 AM EDT Type 2 diabetes mellitus without complication, with long-term current use of insulin ([facility] V24, CMS/HCC V28) MICROALBUMIN CREATININE URINE RATIO Routine 03/13/2025 9:13 AM EDT Type 2 diabetes mellitus without complication, with long-term current use of insulin ([facility] V24, CMS/HCC V28) CBC WITH AUTO DIFFERENTIAL [...] complication, with long-term current use of insulin ([facility] V24, [facility] V28) COLONOSCOPY Routine 11/29/2024 8:46 AM EDT Personal history of colon polyps, unspecified BD BONE DENSITY DXA APPENDICULAR SKELETON Routine 07/10/2024 11:24 AM EST Asymptomatic menopausal state DEPRESSION SCREENING Routine 02/17/2024 FALLS RISK ASSESSMENT Routine 02/17/2024 from Last 3 Months or Most Recently Relevant to Health Maintenance Results * Microalbumin creatinine urine ratio (03/13/2025 9:13 AM EDT) Creatinine, Urine 35.0 mg/dL LAB CHEMISTRY METHOD 03/13/2025 11:08 AM EDT [facility] Microalb, Ur 7.7 0.0 - 29.0 mg/L LAB CHEMISTRY METHOD 03/13/2025 11:08 AM EDT [facility] Microalb/Creat Ratio 22 <30 mg/g creat LAB CHEMISTRY METHOD 03/13/2025 11:08 AM EDT [facility] Urine Urine specimen obtained by clean catch procedure / Unknown Non-blood Collection / Unknown 03/13/2025 9:13 AM EDT 03/13/2025 9:13 AM EDT Danny Dobson MD LAB URINE ORDERABLES Final Result [facility] [address] [place] [address], [place] [phone] * (ABNORMAL) Hemoglobin A1c (03/13/2025 9:13 AM EDT) Hemoglobin A1C 7.6(H) <6.5 % LAB CHEMISTRY METHOD 03/13/2025 9:32 PM EDT [facility] Mean Bld Glu Estim. 171 mg/dL LAB CHEMISTRY METHOD 03/13/2025 9:32 PM EDT [facility] Blood Venous blood specimen / Unknown Venipuncture / Unknown 03/13/2025 9:13 AM EDT 03/13/2025 9:13 AM EDT Danny Dobson MD LAB BLOOD ORDERABLES Final Result [facility] [address] [place] [address], [place] [phone] * Comprehensive metabolic panel (03/13/2025 9:13 AM EDT) Sodium 136 133 - 145 mmol/L LAB CHEMISTRY METHOD 03/13/2025 12:44 PM EDT [facility] Potassium 4.4 3.5 - 5.5 mmol/L LAB CHEMISTRY METHOD 03/13/2025 12:44 PM [facility] Chloride 102 96 - 110 mmol/L LAB CHEMISTRY METHOD 03/13/2025 12:44 PM [facility] CO2 30 21 - 32 mmol/L LAB CHEMISTRY METHOD 03/13/2025 12:44 PM [facility] Anion Gap 4 3 - 11 LAB CHEMISTRY METHOD 03/13/2025 12:44 PM [facility] Glucose 85 70 - 100 mg/dL LAB CHEMISTRY METHOD 03/13/2025 12:44 PM [facility] BUN 16 5 - 25 mg/dL LAB CHEMISTRY METHOD 03/13/2025 12:44 PM [facility] Creatinine 0.62 0.50 - 1.10 mg/dL LAB CHEMISTRY METHOD 03/13/2025 12:44 PM [facility] eGFR 91 >=60 mL/min/1. 73m2 LAB CHEMISTRY METHOD 03/13/2025 12:44 PM [facility] Comment:Calculation based on the Chronic Kidney Disease Epidemiology Collaboration (CKD-EPI) equation refit without adjustment for race. BUN/Creatinine Ratio 25.8 LAB CHEMISTRY METHOD 03/13/2025 12:44 PM [facility] Calcium 9.3 8.5 - 10.5 mg/dL LAB CHEMISTRY METHOD 03/13/2025 12:44 PM [facility] AST (SGOT) 19 10 - 42 unit/L LAB CHEMISTRY METHOD 03/13/2025 12:44 PM [facility] ALT (SGPT) 20 10 - 60 unit/L LAB CHEMISTRY METHOD 03/13/2025 12:44 PM [facility] Alkaline Phosphatase 69 42 - 121 unit/L LAB CHEMISTRY METHOD 03/13/2025 12:44 PM [facility] Total Protein 7.0 6.0 - 8.0 g/dL LAB CHEMISTRY METHOD 03/13/2025 12:44 PM EDT [facility] Albumin 4.3 3.2 - 5.0 g/dL LAB CHEMISTRY METHOD 03/13/2025 12:44 PM EDT [facility] Total Bilirubin 0.8 0.0 - 1.4 mg/dL LAB CHEMISTRY METHOD 03/13/2025 12:44 PM T [facility] Blood Venous blood specimen / Unknown Venipuncture / Unknown 03/13/2025 9:13 AM EDT 03/13/2025 9:13 AM EDT us Danny Dobson MD LAB BLOOD ORDERABLES Final Result [facility] [address] [place] [address], [place] [phone] * (ABNORMAL) CBC auto differential (02/22/2025 10:25 AM EDT) WBC 10.4 4.8 - 10.8 K/mcL LAB HEMETOLOGY [facility] RBC 5.00(H) 3.80 - 4.80 M/mcL LAB HEMETOLOGY METHOD 02/22/2025 12:30 PM [facility] Hemoglobin 15.5 11.5 - 16.0 g/dL LAB HEMETOLOGY METHOD 02/22/2025 12:30 PM EDT [facility] Hematocrit 47.4(H) 35.0 - 47.0 % LAB HEMETOLOGY METHOD 02/22/2025 12:30 PM EDT [facility] MCV 94.0 79.0 - 98.0 FL LAB HEMETOLOGY METHOD 02/22/2025 12:30 PM [facility] MCH 30.8 27.0 - 32.0 pcg LAB HEMETOLOGY METHOD 02/22/2025 12:30 PM EDT [facility] MCHC 32.7 32.0 - 37.0 g/dL LAB HEMETOLOGY METHOD 02/22/2025 12:30 PM EDT [facility] RDW 13.7 11.0 - 15.0 % LAB HEMETOLOGY METHOD 02/22/2025 12:30 [facility] Platelets 197 130 - 400 K/mcL LAB HEMETOLOGY METHOD 02/22/2025 12:30 PM EDT [facility] MPV 11.6(H) 7.0 - 11.0 FL LAB HEMETOLOGY METHOD 02/22/2025 12:30 [facility] NRBC 0.0 <1.0 % LAB HEMETOLOGY METHOD 02/22/2025 12:30 PM [facility] NRBC Absolute 0.00 <0.10 K/mcL LAB HEMETOLOGY METHOD 02/22/2025 12:30 PM [facility] Neutrophils Relative 68.1 % LAB HEMETOLOGY METHOD 02/22/2025 12:30 PM [facility] Lymphocytes Relative 23.9 % LAB HEMETOLOGY METHOD 02/22/2025 12:30 PM [facility] Monocytes Relative 6.2 % LAB HEMETOLOGY METHOD 02/22/2025 12:30 PM [facility] Eosinophils Relative 1.0 % LAB HEMETOLOGY METHOD 02/22/2025 12:30 PM [facility] Basophils Relative 0.4 % LAB HEMETOLOGY METHOD 02/22/2025 12:30 PM [facility] Immature Granulocytes Relative 0.4 % LAB HEMETOLOGY METHOD 02/22/2025 12:30 PM [facility] Neutrophils Absolute 7.07(H) 1.50 - 7.00 K/mcL LAB HEMETOLOGY METHOD 02/22/2025 12:30 PM EDT [facility] Lymphocytes Absolute 2.48 1.00 - 5.00 K/mcL LAB HEMETOLOGY METHOD 02/22/2025 12:30 PM EDT [facility] Monocytes Absolute 0.64 0.20 - 1.00 K/mcL LAB HEMETOLOGY METHOD 02/22/2025 12:30 PM EDT [facility] Eosinophils Absolute 0.10 0.00 - 0.50 K/mcL LAB HEMETOLOGY METHOD 02/22/2025 12:30 PM EDT [facility] Basophils Absolute 0.04 0.00 - 0.20 K/mcL LAB HEMETOLOGY METHOD 02/22/2025 12:30 PM EDT [facility] Immature Granulocytes Absolute 0.04(H) 0.00 - 0.03 K/mcL LAB HEMETOLOGY METHOD 02/22/2025 12:30 PM EDT [facility] Blood Venous blood specimen / Unknown Venipuncture / Unknown 02/22/2025 10:25 AM EDT 02/22/2025 10:25 AM EDT Danny Dobson MD LAB BLOOD ORDERABLES Final Result [facility] [address] [place] [address], [place] [phone] * Activated partial thromboplastin time (02/22/2025 10:25 AM EDT) aPTT 31.1 24.1 - 39.3 sec LAB COAGULATION METHOD 02/22/2025 12:20 PM EDT [facility] Blood Venous blood specimen / Unknown Venipuncture / Unknown 02/22/2025 10:25 AM EDT 02/22/2025 10:25 AM EDT us Danny Dobson MD LAB BLOOD ORDERABLES Final Result [facility] [address] [place] [address], [place] [phone] * (ABNORMAL) Prothrombin time with INR (02/22/2025 10:25 AM EDT) Protime 10.1(L) 10.6 - 13.9 sec LAB COAGULATION METHOD 02/22/2025 12:20 PM EDT [facility] INR 0.8 LAB COAGULATION METHOD 02/22/2025 12:20 PM EDT [facility] Blood Venous blood specimen / Unknown Venipuncture / Unknown 02/22/2025 10:25 AM EDT 02/22/2025 10:25 AM EDT Danny Dobson MD LAB BLOOD ORDERABLES Final Result [facility] [address] [place] [address], [place] [phone] * MG Mammo Digital Screening w Adarsh bilat (02/22/2025 10:07 AM EDT) Anatomical Region Laterality Modality Breast Bilateral Mammography 02/25/2025 4:50 PM EDT Impressions 02/25/2025 4:53 PM EDT 1. No mammographic evidence of malignancy 2. Scattered fibroglandular tissue BI-RADS CATEGORY: 2 - BENIGN RECOMMENDATION: Screening bilateral mammogram is recommended in 1 year. Mammo Location: [facility], [address] [place] [address], [phone], . -------- FINAL REPORT -------- Dictated By: Suki Castellon Dictated Date: 02/25/2025 16:50 ET Assigned Physician: Suki Castellon Reviewed and Electronically Signed By: Suki Castellon Signed Date: 02/25/2025 16:53 ET Workstation ID: [id number] Transcribed By: Self Edit Transcribed Date: 02/25/2025 [...] is recommended in 1 year. Mammo Location: [facility], [address] [place] [address], [phone], . -------- FINAL REPORT -------- Dictated By: Suki Castellon Dictated Date: 02/25/2025 16:50 ET Assigned Physician: Suki Castellon Reviewed and Electronically Signed By: Suki Castellon Signed Date: 02/25/2025 16:53 ET Workstation ID: [id number] Transcribed By: Self Edit Transcribed Date: 02/25/2025 [...] impingement. Findings of calcific tendinopathy. POS - [id number] -------- FINAL REPORT -------- Dictated By: Rozina Nash Dictated Date: 02/05/2025 12:56 ET Assigned Physician: Rozina Nash Reviewed and Electronically Signed By: Rozina Nash Signed Date: 02/05/2025 13:04 ET Workstation ID: [id number] Transcribed By: Self Edit Transcribed Date: 02/05/2025 [...] impingement. Findings of calcific tendinopathy. POS - [id number] -------- FINAL REPORT -------- Dictated By: Rozina Nash Dictated Date: 02/05/2025 12:56 ET Assigned Physician: Rozina Nash Reviewed and Electronically Signed By: Rozina Nash Signed Date: 02/05/2025 13:04 ET Workstation ID: [id number] Transcribed By: Self Edit Transcribed Date: 02/05/2025 12:56 ET us Hammad Mata NP IMG XR PROCEDURES Final Resu lt * [...] Signed Date: 12/27/2024 01:08 ET Workstation ID: [id number] Transcribed By: Self Edit Transcribed Date: 12/27/2024 [...] Signed Date: 12/27/2024 01:08 ET Workstation ID: [id number] Transcribed By: Self Edit Transcribed Date: 12/27/2024 01:06 ET us Danny Dobson MD CV VASCULAR PROCEDURES Gilma l Result * Lipid panel with reflex to direct LDL (12/12/2024 7:38 AM EDT) Cholesterol 154 0 - 200 mg/dL LAB CHEMISTRY METHOD 12/12/2024 11:07 AM EDT [facility] Triglycerides 140 0 - 150 mg/dL LAB CHEMISTRY METHOD 12/12/2024 11:07 AM EDT [facility] HDL 55 >=40 mg/dL LAB CHEMISTRY METHOD 12/12/2024 11:07 AM EDT [facility] LDL Calculated 71 0 - 100 mg/dL LAB CHEMISTRY METHOD 12/12/2024 11:07 AM EDT [facility] VLDL Cholesterol Aiden 28 mg/dL LAB CHEMISTRY METHOD 12/12/2024 11:07 AM EDT [facility] Non HDL Chol. (LDL+VLDL) 99 <145 mg/dL LAB CHEMISTRY METHOD 12/12/2024 11:07 AM EDT [facility] Chol/HDL Ratio 2.8 0.0 - 4.4 LAB CHEMISTRY METHOD 12/12/2024 11:07 AM EDT [facility] Blood Venous blood specimen / Unknown Venipuncture / Unknown 12/12/2024 7:38 AM EDT 12/12/2024 7:38 AM EDT us Danny Dobson MD LAB BLOOD ORDERABLES Final Result [facility] [address] [place] [address], * COLONOSCOPY Anesthesia - MAC; [facility] (11/29/2024 8:46 AM EDT) Anatomical Region Laterality Modality Endoscopy 11/29/2024 8:23 AM EDT Impressions 11/29/2024 8:51 AM EDT - Two 5 to 7 mm polyps in the transverse colon, removed with a cold snare. Resected and retrieved. - One 15 mm polyp in the cecum, removed with a hot snare. Resected and retrieved. Injected. Clips (MR conditional) were placed. Clip spectrograph operator: [employer]. - Diverticulosis in the sigmoid colon. - [...] verified by the physician, the nurse, the cigarette machine operator and the chemistry technician in the pre-procedure area in the [...] clips were successfully placed (MR conditional). Clip spectrograph operator: [employer]. There was no bleeding at the end of the procedure. Estimated blood loss was minimal. Scattered small-mouthed diverticula were found in the sigmoid colon. Internal hemorrhoids were found during retroflexion. The hemorrhoids were Grade I (internal hemorrhoids that do not prolapse). Procedure Code(s): --- Professional --- 63817, Colonoscopy, flexible; with removal of tumor(s), polyp(s), or other lesion(s) by snare technique 11439, Colonoscopy, flexible; with directed submucosal injection(s), any substance Diagnosis Code(s): --- Professional --- D12.3, Benign neoplasm of transverse colon (hepatic flexure or splenic flexure) D12.0, Benign neoplasm of cecum CPT copyright 2020 [employer]. All rights reserved. The codes documented in this report are preliminary and upon practice specialist review may be revised to meet current compliance requirements. Richelle Pritchard MD 11/29/2024 8:50:59 AM This report has been signed electronically.Richelle Pritchard MD Number of Addenda: 0 Note Initiated On: 11/29/2024 8:23 AM Scope Withdrawal Time: 0 hours 12 minutes 48 seconds Scope In: 8:28:21 AM Scope Out: 8:47:17 AM Endoscopy Department at [facility] - [address] [place] [id number] Procedure Note Richelle Pritchard MD - 11/29/2024 [facility] GI Patient Name: Kalyn Bourbonnais Procedure Date: 11/29/2024 8:23 AM Date of [...] the physician, the nurse, theanesthetist and the chemistry technician in the pre-procedure area in the [...] hemostatic clips weresuccessfully placed (MR conditional). Clip spectrograph operator: [employer]. There was no bleeding at the end of the procedure. Estimated blood loss was minimal. Scattered small-mouthed diverticula were found inthe sigmoid colon. Internal hemorrhoids were found duringretroflexion. The hemorrhoids were Grade I (internal hemorrhoids that do not prolapse). Procedure Code(s): --- Professional --- 56375, Colonoscopy, flexible; with removal of tumor(s), polyp(s), or other lesion(s) by snare technique 49033, Colonoscopy, flexible; with directedsubmucosal injection(s), any substance Diagnosis Code(s): --- Professional --- D12.3, Benign neoplasm of transverse colon (hepatic flexure or splenic flexure) D12.0, Benign neoplasm of cecum CPT copyright 2020 [employer]. All rights reserved. The codes documented in this report are preliminary and upon practice specialist reviewmay be revised to meet current compliance requirements. Richelle Pritchard MD 11/29/2024 8:50:59 AM This report has been signed electronically.Richelle Pritchard MD Number of Addenda: 0 Note Initiated On: 11/29/2024 8:23 AM Scope Withdrawal Time: 0 hours 12 minutes 48 seconds Scope In: 8:28:21 AM Scope Out: 8:47:17 AM Endoscopy Department at [facility] - [address] [place] [phone] IMPRESSION: - Two 5 to 7 mm polyps in the transverse colon, removed with a cold snare. Resected andretrieved. - One 15 mm polyp in the cecum, removed with a hot snare. Resected and retrieved. Injected. Clips (MR conditional) were placed. Clip spectrograph operator: [employer]. - Diverticulosis in the sigmoid colon. - [...] Signed Date: 07/10/2024 20:05 ET Workstation ID: [id number] Transcribed By: Self Edit Transcribed Date: 07/10/2024 20:03 ET Narrative 07/10/2024 8:05 PM EST STUDY: DUAL ENERGY X-RAY ABSORPTIOMETRY / DXA REASON FOR EXAM: Female, 79 years old Z78.0 TECHNIQUE: Bone Mineral Density (BMD) measurements of the lumbar spine and left hip were obtained using LIFT12 Discovery W (S/N [id number]). COMPARISON: None FINDINGS: L1-L3 BMD: 1.389 g/cm2 [...] lumbar spineand left hip were obtained using LIFT12 Discovery W (S/N 32200). COMPARISON: None FINDINGS: L1-L3 BMD: 1.389 g/cm2 [...] Signed Date: 07/10/2024 20:05 ET Workstation ID: [id number] Transcribed By: Self Edit Transcribed Date: 07/10/2024 20:03 ET us Samira Tiwari MD IMG DXA PROCEDURES Fin al Result * Falls Risk Assessment (02/17/2024) Falls Risk Assessment Abstracted Result [facility] Historical Provider HEALTH MAINTENANCE Final Result * Depression Screening (02/17/2024) HM Depression Screening Abstracted Result [facility] Historical Provider HEALTH MAINTENANCE Final Result from Last 3 Months or Most Recently Relevant to Health Maintenance Insurance MEDICARE [facility] Advance Directives Documents on File Type Date Recorded Patient Seconds Grader Expl anation Health Care Decision (hx) 04/26/2024 [...] currently active code status orders. Care Teams President Sales And Marketing Relationship Specialty Start Date End Date Danny Dobson MD [address] [place] [address] PCP - General 02/17/24
== END 2025-03-22 09:15 | disposition home or self-care (01) ==
LOC: HO.RHES 08:29
PROVIDERS: PCP Family Medicine; Visit Provider Student in an Organized Health Care Education/Training Program
DX: L40.50 Arthropathic psoriasis, unspecified (principal); Z51.81 Encounter for therapeutic drug level monitoring; Z79.620 Long term (current) use of immunosuppressive biologic
CPT/HCPCS: 99214; G2211

== ENCOUNTER → 2025-03-22 08:28 | Outpatient (BNVA) | payer MEDICARE, SELFPAY | PROVIDERS: PCP Family Medicine; Visit Provider Student in an Organized Health Care Education/Training Program | DX: L40.50 Arthropathic psoriasis, unspecified (principal); Z51.81 Encounter for therapeutic drug level monitoring; Z79.620 Long term (current) use of immunosuppressive biologic | CPT/HCPCS: 99212 ==

== ENCOUNTER 2025-03-22 12:50 | Outpatient (RCR) | payer MEDICARE, SELFPAY ==
[2024-02-01 08:44] VITALS: BMI 38.3
[2024-02-01 08:53] VITALS: BP 125/55; PULSE 79; RESP 18; TEMP 36.4; O2SAT 96
--- NOTE | 2024-02-01 08:57 | HO.INF ---
08:55AM- [facility] HAD THIS INFUSION FOR OVER A YEAR WHEN SHE LIVED IN [place]- LAST DOSE WAS 2002.
--- NOTE | 2024-02-01 09:07 | HO.INF ---
09:05AM- PATIENT DECLINED TYLENOL AND BENADRYL.
--- NOTE | 2024-02-01 11:05 | HO.INF ---
10:45am- pharmacy called infusion center - unable to give medication due to mixing issue. patient informed. iv removed. patient rescheduled for future date.
[2024-02-02 12:04] VITALS: BP 134/64; PULSE 88; RESP 16; TEMP 36.8
[2024-03-01 08:44] VITALS: BP 147/69; PULSE 79; RESP 18; TEMP 36.6
[2024-03-01 12:15] VITALS: BP 105/48; PULSE 76; RESP 18; O2SAT 97
[2024-03-01] MEDS: 0.9 % Sodium Chloride Flush 10 ML SYRINGE 5 ML IVFLUSH ×2 (12:25→13:02)
[2024-06-05 11:13] VITALS: BP 133/60; PULSE 81; RESP 16; TEMP 36.6; O2SAT 93
[2024-07-05 10:35] VITALS: BP 163/52; PULSE 93; RESP 20; TEMP 36.4; O2SAT 96
[2024-07-05] MEDS: 0.9 % Sodium Chloride Flush 10 ML SYRINGE 5 ML IVFLUSH (11:54)
[2024-08-02 10:09] VITALS: BP 140/63; PULSE 73; RESP 20; TEMP 36.2; O2SAT 98
[2024-08-30 10:09] VITALS: BP 155/69; PULSE 78; RESP 18; TEMP 36.6
[2024-09-27 09:53] VITALS: BP 161/52; PULSE 78; RESP 18; TEMP 37; O2SAT 95
[2024-10-25 09:45] VITALS: BP 155/50; PULSE 60; RESP 16; TEMP 36.6; O2SAT 96
--- NOTE | 2024-10-25 11:22 | HO.INF ---
dr tang office called. relayed to timothy to have dr tang call pharmacy regarding the order dosage genaro.
--- NOTE | 2024-10-25 12:11 | HO.INF ---
orencia 1000mg not available in pharmacy. dr tang wants 1000mg infused. medication ordered per pharmacy. should arrive tomorrow am. pt rescheduled for tomorrow.
[2024-10-26 09:25] VITALS: PULSE 80; RESP 16; TEMP 36.7; O2SAT 97
[2024-11-23 09:50] VITALS: BP 158/66; PULSE 67; RESP 16; TEMP 36; O2SAT 96
[2024-12-21 14:04] VITALS: BP 144/62; PULSE 90; RESP 16; TEMP 36.7; O2SAT 99
[2025-01-18 10:18] VITALS: BMI 38.2
[2025-01-18 10:24] VITALS: BP 139/64; PULSE 72; RESP 16; TEMP 36.3; O2SAT 96
[2025-02-15 11:47] VITALS: BMI 37.5
[2025-02-15 11:53] VITALS: BP 138/55; PULSE 71; RESP 18; TEMP 36.6
[2025-03-22 12:32] VITALS: BMI 36.9
[2025-03-22 12:43] VITALS: BP 118/62; PULSE 73; RESP 16; TEMP 36.7; O2SAT 96
== END 2025-03-22 15:51 | disposition home or self-care (01) ==
LOC: HO.INF 12:50
PROVIDERS: PCP Family Medicine; Visit Provider Student in an Organized Health Care Education/Training Program
DX: L40.50 Arthropathic psoriasis, unspecified (principal)
CPT/HCPCS: 96365; J0129

== ENCOUNTER 2025-05-23 07:48 | Outpatient (AMB) | payer MEDICARE, SELFPAY ==
--- NOTE | 2025-05-23 07:51 | A.PHYSOV ---
Vital Signs 05/23/25 07:55 Height 5 ft 4 in Weight 211 lb BMI 36.2 Intake Visit Reasons: 2nd opinion on back Intake Note: Patient is a 80 year old female in today for lower back. Patient is a patient of Renaldo and he's requesting a second opinion. Back injection asre no longer working for her. Cost Accounting Analyst Required: No Allergies gabapentin Allergy (Mild, Verified 05/23/25 07:54) Rash codeine Adverse Reaction (Intermediate, Verified 05/23/25 07:54) Constipation HPI Comments Details: History of Present Illness The patient is a 80-year-old individual presenting with chronic lower back pain. The patient has undergone various lumbar injections, including lumbar facet and epidural injections, with the latest left L5 transforaminal epidural steroid injection on March 15, 2025, which did not provide relief. However, patient states that she had excellent relief for 2 days, unfortunately pain returned shortly thereafter. A short supply of hydrocodone was provided at the last follow-up on April 23, 2025. The MRI from September 07, 2024, revealed moderate spinal stenosis at the L4-L5 level and age-related degenerative changes. The pain worsens with standing and improves with sitting, with the right side being more affected. Pain completely subsides with sitting down. She reports positive ?shopping cart? sign. The patient has a history of a right eye aneurysm, identified during an MRI while undergoing physical therapy for balance issues. The patient did not complete the physical therapy due to the need to address the aneurysm and subsequent relocation from [place]. Pain Description - Onset: Chronic - Quality: Persistent, worsens with standing, improves with sitting - Location: Lower back, right side worse than left - Radiation: Pain can move across the lower back - Exacerbating factors: Standing, walking - Relieving factors: Sitting, using a shopping cart for support - Interference: Affects ability to stand for long periods, perform household tasks Results - MRI (September 07, 2024): Moderate spinal stenosis at L4-L5, degenerative changes consistent with age [facility] Medical History Psoriasis Long-term use of immunosuppressant medication Lymph node abscess Hx of colonic polyp Post-menopausal Psoriatic arthritis Mixed hyperlipidemia Essential (primary) hypertension Type 2 diabetes mellitus with insulin therapy Surgical History H/O: knee surgery History of appendectomy History of tonsillectomy History of partial hysterectomy Family History Mother Cancer Father Abdominal aneurysm Social History (Updated 05/23/25 @ 07:56 by Lisa Reynolds MA) Alcohol intake: current Alcohol intake frequency: does not drink Patient Tobacco Use Status: Never used Tobacco Use of substances other than those prescribed or required for medical reasons: No Current occupational status: retired Review of Systems Narrative Review of Systems - Musculoskeletal: Reports chronic lower back pain, worsens with standing, improves with sitting - Neurological: Reports balance issues, history of right eye aneurysm Physical Exam Exam Exam: Physical Exam - Musculoskeletal: Tenderness over the SI joint, worse on the right side She was able to ambulate without antalgia. Forward flexed posture. Lumbar extension was restricted. Dural tension signs were negative. Neurological examination reveals uniformly diminished muscle stretch reflexes, the reminder of neurological examination was nonfocal. Patient demonstrated no upper motor neuron signs. SI provocative maneuvers were negative. Vital Signs: BMI result Body Mass Index 36.2 Assessment & Plan Assessment & Plan (1) Spinal stenosis, lumbar region with neurogenic claudication: Code(s): M48.062 - Spinal stenosis, lumbar region with neurogenic claudication Category: Medical (2) Lumbar radiculitis: Code(s): M54.16 - Radiculopathy, lumbar region Category: Medical Plan Pain Management - Affect: Pain impacts the patient's ability to stand and perform daily activities - Analgesia: Short supply of hydrocodone provided, recent epidural injection provided relief for a couple of days - Adverse Effects: None reported - Activities of Daily Living: Pain limits standing, walking, and household tasks - Aberrant Drug Related Behaviors: None reported Plan Patient was informed and verbally consented to the use of an ambient scribe for clinic note documentation during this visit. 1. Chronic Lower Back Pain The patient continues to experience chronic lower back pain despite previous interventions, including lumbar facet and epidural injections. The recent left L5 transforaminal epidural steroid injection provided no lasting relief. The patient was advised to consult with a spine surgeon for further evaluation and potential management options, including advanced pain management procedures such as spinal cord stimulators. 2. Spinal Stenosis At L4-L5 The MRI findings indicate moderate spinal stenosis at the L4-L5 level, which correlates with the patient's symptoms of pain exacerbated by standing and relieved by sitting. The patient was recommended to use a walker for long distances and to consider consulting with a spine surgeon for further evaluation. Discussion Notes During the visit, I discussed with the patient the current status of the chronic lower back pain and the limited relief from recent interventions. I recommended consulting with a spine surgeon to explore further management options, including potential surgical interventions or advanced pain management techniques. We also discussed the use of a walker for long distances and the possibility of using a step stool to alleviate pain while standing. Patient Instructions - Follow up with a spine surgeon for further evaluation and management options. - Consider using a walker for long distances to help manage pain. - Use a step stool to relieve pain while standing for extended periods. Orders: Referrals Neuro Spine Referral M48.062 - Spinal stenosis, lumbar region with neurogenic claudication, M54.16 - Radiculopathy, lumbar region Coding Level of Care Code Est Pt Level 4 (67702) Complex EM visit Add On G2211 Diagnoses Spinal stenosis, lumbar region with neurogenic claudication M48.062 Lumbar radiculitis M54.16
[2025-05-23 07:55] VITALS: BMI 36.2
== END 2025-05-23 08:34 | disposition home or self-care (01) ==
LOC: HO.HPHYS 07:48
PROVIDERS: PCP Family Medicine; Visit Provider Physical Medicine & Rehabilitation
DX: M48.062 Spinal stenosis, lumbar region with neurogenic claudication (principal); M54.16 Radiculopathy, lumbar region
CPT/HCPCS: 99214; G2211

== ENCOUNTER → 2025-05-23 07:48 | Outpatient (BNVA) | payer MEDICARE, SELFPAY | PROVIDERS: PCP Family Medicine; Visit Provider Physical Medicine & Rehabilitation | DX: M48.062 Spinal stenosis, lumbar region with neurogenic claudication (principal); M54.16 Radiculopathy, lumbar region | CPT/HCPCS: 99212 ==

== ENCOUNTER 2025-06-03 10:09 | Outpatient (AMB) | payer MEDICARE, SELFPAY ==
[2025-06-03 10:38] VITALS: BMI 36.2
--- NOTE | 2025-06-03 10:38 | A.SPINEOV_ITS ---
Vital Signs 06/03/25 10:38 Height 5 ft 4 in Weight 211 lb BMI 36.2 Intake Visit Reasons: LBP Intake Note: Ms. Baum is here today c/o low back pain. Modular Home Crew Member Required: No Allergies gabapentin Allergy (Mild, Verified 06/03/25 10:38) Rash codeine Adverse Reaction (Intermediate, Verified 06/03/25 10:38) Constipation Physical Exam Vital Signs: BMI result Body Mass Index 36.2 Assessment & Plan Assessment & Plan (1) Lumbar radiculitis: Code(s): M54.16 - Radiculopathy, lumbar region Category: Medical (2) Spinal stenosis, lumbar region with neurogenic claudication: Code(s): M48.062 - Spinal stenosis, lumbar region with neurogenic claudication Category: Medical Plan Dear DR Miller, Thank you for referring Mrs Baum to our office today. She is a very nice 80-year-old female who underwent 2 previous placement of Superion interspinous process stabalization devices in [place] about 7-8 years ago with excellent relief of her right leg pain. Over time however, she has developed a back pain which she describes as diffusely encompassing her whole lower lumbar region worse on the left, that is aggravated with activity such as standing, walking, bending etc.. It has become quite disabling at this point and very limiting how much activity she can do. She has had no return of the leg symptoms thankfully. She takes Tylenol occasionally. She can not take anti-inflammatories as it causes significant lower extremity swelling. She has subsequently moved back up to [place] a few years ago and is following up with us as a new spine surgery team. She did undergo a number of injections at your office, the epidural injections in fact gave her relief for few weeks after the 1st injection, subsequent injection only lasted a few days. No significant relief from the facet blocks. She underwent physical therapy about a year and a half ago and that did not give her any meaningful improvement, but at the time she was dealing with an issue with a brain aneurysm, and only lasted about for 5 sessions before she had to quit that. She comes in today with an MRI done at [facility] showing evidence of stenosis at L4-5. PMH: Hypertension which is well controlled on medications, diabetes, her last A1c according to the [facility] records at [place] was 7.6, diabetic neuropathy, psoriatic arthritis, osteoarthritis, hysterectomy, appendectomy, tonsillectomy, knee replacement on the right side and the above-mentioned lumbar interspinous process device. 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 Denies any history of cardiovascular disease, strokes, liver or kidney disease, bleeding disorders, blood clots cancer or unusual infections. Social hx: She has not smoke, drink use any recreational drugs Medications: Metformin, baby aspirin, vitamin D3, hydrochlorothiazide, atorvastatin, levothyroxine, Jardiance, Lantus, amlodipine, losartan and Humira biologic Allergies: Codeine gives her nausea and vomiting and nonsteroidal anti- inflammatories give her lower extremity swelling Physical exam: Awake alert oriented no acute distress, she is able to stand and walk in the hallways on her own but she is unsteady on her feet. She has some [id number] weakness of her hands bilaterally but otherwise strength in the upper and lower extremities normal, reflexes diminished in the upper and lower extremities. No Mackenzie's, no clonus. Patient has 2 small well-healed incisions in her lower back. Imaging review: Lumbar MRI done at [facility] earlier this year shows metal artifact from 2 interspinous devices at L3-4 and L4-5, she has moderate stenosis at L4-5 with what looks like a small synovial cyst on the right side. She has a mild disc degeneration throughout most of her lumbar spine. No significant Modic endplate changes are seen. No spondylolisthesis, fracture or acute disc herniation is seen. Impression: 80-year-old female history of 2 previous Superion devices placed about 7 or 8 years ago with significant if not complete reduction in her right leg pain, has subsequently developed back pain over the course of the last for 5 years, for which she has been treated with cortisone injections and a brief attempt at physical therapy. The epidural injections that you did gave her significant relief, especially the 1st 1 gave her 2 weeks of complete relief of her back pain. She does have stenosis at L4-5 but no claudicating leg symptoms. No evidence of misalignment on the MRI. There is no Modic endplate changes or severe disc collapse seen. We did flexion-extension x-rays here in the office with no signs of instability. I reviewed the patient's case with Dr. Toscano, we can offer her a decompression at L4-5 with right side approach to resect the synovial cyst and do bilateral decompression. The surgical outcome for decompression of stenosis in the setting of back pain can be less predictable than if there is claudicating leg pain, however in light of the fact that she has nearly debilitated by the pain, we can offer her the surgery as long as she understands there is no guarantee. We do not have to remove the interspinous ligament devices since the pain did not start directly after they were placed. The patient will have to come off her Humira prior to surgery if she wants to proceed. She will also use stop her baby aspirin 1 week before surgery. She will stop her Jardiance 3 days prior to surgery. The patient was given risk and benefits of surgery including but not limited to infection, hematoma, nerve injury, durotomy, weakness, bowel/bladder injury, persistent pain,[ ]. We also discussed the option to continue with conservative treatment and patient wishes to proceed with surgery. They are aware they should stop NSAIDs 7 days prior to surgery. All questions were answered to the best of our ability. If there is anything about this patients medical history that we have overlooked or concerns you have about us proceeding with surgery we would appreciate any input you can offer Thank you for allowing us to care for your patient. The total time spent with this visit with this patient was 45 minutes reviewing history, physical exam, lumbar imaging review, and implementation of treatment plan or further diagnostic testing Lee Toscano MD,PhD [facility] Orders: Orders XR lumbar spine 4V min 06/03/25 M48.062 - Spinal stenosis, lumbar region with neurogenic claudication, M54.16 - Radiculopathy, lumbar region Coding Level of Care Code New Pt Level 4 (81903) Diagnoses Lumbar radiculitis M54.16 Spinal stenosis, lumbar region with neurogenic claudication M48.062
== END 2025-06-03 12:06 | disposition home or self-care (01) ==
LOC: HO.HNS 10:10
PROVIDERS: PCP Family Medicine; Referring Provider Physical Medicine & Rehabilitation; Visit Provider Physician Assistant
DX: M54.16 Radiculopathy, lumbar region (principal); M48.062 Spinal stenosis, lumbar region with neurogenic claudication
CPT/HCPCS: 99204

== ENCOUNTER 2025-06-03 10:09 | Outpatient (REF) | payer MEDICARE, SELFPAY ==
--- OUTSIDE RECORDS SUMMARY | 2022-04-05 23:00 | XMS_ITS | Encounter Summary ---
Author Organization [facility] [place] [address] Care Team Providers Care Risk Control Product Liability Director Name Role Phone Robert Shala MCKAY Primary Care Provider Encounter Details Date Type Department Care Team (Late st Contact Info) Description 04/06/2022 Hospital Encounter TH HISTORIC ENCOUNTERS EASTERN CONVERSION ONLY Sophia Balderas MD [address] [facility] [place] 2nd [place] [address] Social History Tobacco Use Types Packs/Day Years Used Date Smoking Tobacco: Never Assessed Housing Instability Answer Date Recorde d Are you worried that in the next 2 months you may not have stable housing? No 03/14/2025 Food Access & Nutrition Answer Date Rec orded Do you have access to a vari ety of food including fruits and vegetables? Yes 03/14/2025 Access to Healthcare Answer Date Record ed Within the last 3 months, ho w many times did you visit the emergency department for your medical care? 0 03/14/2025 Health Literacy Answer Date Recorded How often do you need to hav e someone help you when you read instructions, pamphlets, or other written material from your doctor or pharmacy? Never 03/14/2025 Caregiver: How often do you need to have someone help you when you read instructions, pamphlets, or other written material from your doctor or pharmacy? Not on file 03/14/2025 Financial Risk Answer Date Recorded How hard is it for you to pa y for the very basics like food, housing, medical care, and air conditioning / heating? Not very hard 03/14/2025 Transportation Answer Date Recorded Has the lack of transportati on kept you from meetings, work, or from getting things needed for daily living? No Has the lack of transportati on kept you from medical appointments or from getting medications? No 03/14/2025 Social Isolation Answer Date Recorded How often do you feel lonely or isolated from th ose around you? Never 03/14/2025 Food Risk Answer Date Recorded Within the past 12 months we worried whether our food would run out before we got money to buy more. Never true 03/14/2025 Within the past 12 months th e food we bought just didn't last and we didn't have money to get more. Never true 03/14/2025 Dependent Care Answer Date Recorded Do you need help finding or paying for care for your loved ones. For example, director of early childhood education or elderly care for an older adult? No 03/14/2025 Education Answer Date Recorded Do you think completing more education or training, like finishing a GED, going to college, or learning a trade, would be helpful for you? Patient declined 03/14/2025 Employment and Income Answer Date Recor ded During the last four weeks, have you been actively looking for work? No 03/14/2025 Living Situation Answer Date Recorded What is your living situation? Unrecognized valu e 03/14/2025 Interpersonal Safety Answer Date Record ed Physical Abuse Unrecognized value 11/29/2024 Verbal Abuse Unrecognized value 11/29/2024 Comments Unknown Sex and Gender Information Value Date Recorded Sex Assigned at Female 06/09/2022 11:33 AM EST Legal Sex Female 12:39 PM EDT Gender Identity Female 06/09/2022 11:33 AM EST Sexual Orientation Not on file COVID-19 Exposure Response Date Recorded In the last 10 days, have yo u been in contact with someone who was confirmed or suspected to have Coronavirus/COVID-19? No / Unsure 12/23/2022 8:08 AM EDT documented as of this encounter Functional Status * Calculated C-SSRS Risk Score (Lifetime/Recent) Answer Date of Assessment Author No Risk Indicated 10/17/2024 5:22 PM EDT Guihan, Carla, RN * [place] Suicide Severity Rating Scale (Screener/Recent Self-Report) Question Answer Date of Assessment Author 1. Wish to be (Past 1 Month) No 025 5:22 PM EDT Danica Bruce RN 2. Non-Specific Active Suici zoey Thoughts (Past 1 Month) No 10/17/2024 5:22 PM EDT Danica Bruce, RUDY 6. Suicidal Behavior (Lifetime) No 5:22 PM EDT Danica Bruce, RN documented as of this encounter Plan of Treatment Upcoming Encounters Date Type Department Care Team (Late st Contact Info) Description 06/12/2025 1:00 PM EST Office Visit Orthopedic Surgery - [place] [id number] [phone] Cesar Le, DPM [address] [address] 07/24/2025 9:45 AM EST Office Visit [address] [phone] Dnany Dobson MD [address] [place] [address] 03/26/2026 10:00 AM EDT Office Visit [address] [phone] Danny Dobson MD [address] [place] [address] documented as of this encounter Goals Goal Patient Goal Type Associated Problems Recent Progress Patient-Stated? Author HP Ensure safe transition of care General On track( 023 2:27 PM EDT) No Gladys Lara, RUDY LTG's 12 visits General Yes Travis Gold, PT Note: Pt will demonstrate R knee flexion of 125 degrees or better to reciprocally negotiate stairs with UE assist and use of handrail fro safety only. (Met) Pt will demonstrate R LE strength of 4+/5 or better to enable to transfer R LE in/out of bed w/out UE assistance. (Met). Pt will report sleeping 6 or more hours in bed w/out reports of R knee pain. (Met) Pt will be independent and compliant w/ final HEP of [facility] strengthening. (Met). documented as of this encounter Visit Diagnoses Not on filedocumented in this encounter Care Teams Risk Control Product Liability Director Relationship Specialty Start Date End Date Shala Jones DO PCP - General Internal Medicine 03/25/22 04/19/22 documented as of this encounter
--- OUTSIDE RECORDS SUMMARY | 2025-06-03 15:05 | XMS_ITS | Clinical Summary ---
Author Organization [facility] Address [address] [place] [address] Phone Care Team Providers Care Tunnel Elastic Operator Zigzag Name Role Phone Danny Dobson MD Primary Care Provider Allergies Active Allergy Reactions Criticality Noted Date Comments Codeine Nausea Only 03/25/2022 Gabapentin Rash Low 06/07/2024 Medications diabetic supplies, [place]. [facility] [place] Glucose Testing Supplies ( meter, test strips, lancing device, control solution, lancets, meter battery) TEST TWICE A DAY 1 each 3 3 Active cholecalcifero l, vitamin D3, 250 mcg (10,000 unit) tablet Take 250 mcg by mouth. Active aspirin 81 mg chewable tablet Chew 1 tablet (81 mg total). 4 Active Lantus U-100 Insulin 100 unit/mL injectionIndic ations:Type 2 diabetes mellitus with other specified complication, without long-term current use of insulin ([facility] V24, [facility] V28) INJECT 30 UNITS SUBCUTANEOUSLY AT BEDTIME 40 mL 3 5 Active insulin syringe-needle U-100 1 mL 31 gauge x 5/16 syringe USE TO INJECT INSULIN ONCE DAILY DIRECTED 100 each 1 5 Active diclofenac (VOLTAREN) 1 % topical [...] of diabetes. 1 each 5 026 Active amLODIPine (NORVASC) 5 mg tablet Take 1 tablet (5 mg total) by mouth 1 (one) time each day. 90 each 5 Active atorvastatin (LIPITOR) 10 mg tablet Take 1 tablet (10 mg total) by mouth 1 (one) time each day. 90 tablet 5 Active empagliflozin (JARDIANCE) 25 mg tablet Take 1 tablet (25 mg total) by mouth 1 (one) time each day in the morning. 90 tablet 5 Active hydroCHLOROthi azide (HYDRODIURIL) 25 mg tablet Take 1 tablet (25 mg total) by mouth 1 (one) time each day. 90 each 5 Active levothyroxine (SYNTHROID, LEVOTHROID) 100 mcg tablet Take 1 tablet (100 mcg total) by mouth 1 (one) time each day. before breakfast 90 each 5 025 Active losartan (COZAAR) 100 mg tablet Take 1 tablet (100 mg total) by mouth 1 (one) time each day. 90 each 5 Active metFORMIN (GLUCOPHAGE) 1,000 mg tablet Take 1 tablet (1,000 mg total) by mouth 2 (two) times a day with meals. 180 tablet 1 5 Active Active Problems Problem Noted Date Diagnosed Date Stenosis of right carotid artery 12/19/2024 Psoriatic arthritis ([facility] V24, [facility] V28) 0 12/19/2024 Status post total right knee replacement 024 Diabetes mellitus with hyper glycemia, with long-term current use of insulin ([facility] V24, [facility] V28) 04/02/2024 Overview (04/02/2024): Uncontrolled Degenerative lumbar spinal stenosis 10/31/2023 Primary osteoarthritis of left knee 10/31/2023 Psoriasis 10/28/2023 Hypertension 03/25/2023 Assessment & Plan (03/25/2023 9:26 AM EDT): Continue with BP meds Hyperlipidemia 03/25/2023 Type 2 diabetes mellitus, wi thout long-term current use of insulin ([facility] V24, [facility] V28) 03/25/2023 Assessment & Plan [...] of right knee 10/31/2023 12/31/2024 Rheumatoid arthritis ([facility]/ C V24, [facility] V28) 03/25/2023 12/19/2024 Acquired hammertoe of left foot 03/25/2022 09/15/2022 Acquired hammertoe of right foot 03/25/2022 09/15/2022 Allergic rhinitis 03/25/2022 09/15/2022 Contusion of great toe, left 03/25/2022 09/15/2022 Diabetes mellitus ([facility]/HCC V24, [facility] V28) 09/15/2022 Diabetic peripheral neuropat hy ([facility]/HCC V24, [facility] V28) 03/25/2022 09/15/2022 Fatigue 03/25/2022 09/15/2022 Foot pain 03/25/2022 09/15/2022 Fracture of phalanx of toe 03/25/2022 0 09/15/2022 Hyperlipidemia associated wi th type 2 diabetes mellitus ([facility] V24, [facility] V28) 03/25/2022 09/15/2022 Hyperlipidemia 03/25/2022 [...] obesity with BMI of 4 0.0-44.9, adult ([facility] V24, [facility] V28) 03/25/2022 09/15/2022 Encounters Date Type Department Care Team Description 05/27/2025 Telephone Adult Medicine [address] [phone] Danny Dobson MD 04/18/2025 9:30 AM EDT Office Visit Orthopedic Surgery - [address] [phone] Quinton Saleem MD Status post total right knee replacement (Primary Dx); Chronic pain of right knee; Bilateral knee pain; Degenerative lumbar spinal stenosis; Chronic low back pain without sciatica, unspecified back pain laterality; Primary osteoarthritis of left knee 03/21/2025 10:00 AM EDT Office Visit [address] [phone] Danny Dobson MD Encounter for subsequent annual wellness visit (AWV) in Medicare patient (Primary Dx); Class 2 severe obesity due to excess calories with serious comorbidity and body mass index (BMI) of 36.0 to 36.9 in adult ([facility] V24, [facility] V28); Primary hypertension; Psoriatic arthritis ([facility] V24, [facility] V28); Type 2 diabetes mellitus with hyperglycemia, with long-term current use of insulin ([facility] V24, [facility] V28); Hyperlipidemia, unspecified hyperlipidemia type; Routine general medical examination at a health care facility 03/06/2025 Telephone Adult [address] [phone] Diana Yarbrough RN from Last 3 Months Immunizations Immunization Administration Dates Next Due Influenza Quadravalent, MDCK [...] DIAGNOSTIC W/WO SYNOVIAL BX SPX; COMMENT: in [facility] OTHER SURGICAL HISTORY PROCEDURE: HISTORY OTHER; COMMENT: Brain aneurysm- coils placed- in [facility] in september 2022 BREAST BIOPSY Left PROCEDURE: BX BREAST; PERC NEEDLE CORE W/IMAG GUID; COMMENT: yrs ago-benign Medical History Medical History Date Comments Diabetes ([facility], [facility] V28) HTN (hypertension) Hyperlipidemia Diabetes mellitus ([facility] V 24, [facility] V28) 03/25/2022 Diabetic peripheral neuropat hy ([facility] V24, [facility] V28) 03/25/2022 Hypertension 03/25/2022 Primary osteoarthritis of fi rst carpometacarpal joint of left hand 03/25/2022 Vitamin D deficiency 03/25/2022 Anxiety 03/25/2022 Morbid obesity with BMI of 4 0.0-44.9, adult ([facility] V24, [facility] V28) 03/25/2022 Hypothyroidism 03/25/2022 Brain aneurysm DX:Brain [...] ed Within the last 3 months, ho crystal many times did you visit the emergency [...] care for your loved ones. 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 [...] 11/29/2024 Verbal Abuse Unrecognized value 11/29/2024 Comments No Sex and Gender Information [...] PM EST Office Visit Orthopedic Surgery - [place] [address] [phone] Cesar Le DPM [address] [address] 07/24/2025 9:45 AM EST Office Visit [address] [phone] Danny Dobson MD 4 [place], [place] 03/26/2026 10:00 AM EDT Office Visit [address] [phone] Danny Dobson MD 4 [place], [place] Health Maintenance Due Date Last Done Comments Hepatitis C Screening 01/09/2022 Diabetes: Annual Foot Exam 07/04/2025 P ostponed from 01/29/1955 (Patient Refused) Diabetes: Annual Retina Eye Exam 07/04/2025 Postponed from 01/29/1955 (Patient Refused) Diabetes: Blood Sugar Control Test (HGBA1C) 09/10/2025 03/13/2025, 12/12/2024, 09/12/2024, Additional history exists COVID-19 Vaccine (9 - Pfizer risk 2024- season) 2025 03/18/2025, 03/20/2024, 05/17/2023, Additional history exists Falls Risk Assessment 11/29/2025 [...] 07/25/2024 Depression Screening Completed 03/14/2025, 02/17/20 24 Influenza Vaccine Completed 03/18/2025, , 03/22/2023, Additional history exists RSV Immunization Adult Patients Completed 04/01/2025 HIB Vaccines Aged Out No longer eligi [...] strengthening. (Met). Medical Devices Implanted Type Area Digital Strategist Device Identifier Shelf Expiration Date Model / Serial / Lot Cath Iv Nexiva 20ga 1.25in [facility] [id number] - [id number] Implanted:Qt y: 1 on 09/07/2022 at [facility] Central/Perip heral Catheters and Ports Right: Arm REKHA [employer] [id number] 05/03/2025 [id number] / [id number] / [id number] Coil Axium 3d 4ckg1vo - [id number] - [id number] Implanted:Qt y: 1 on 09/14/2022 by Erickson Mckeon MD at [facility] Embolectomy Implants Right: Cerebrum [employer] - EV3 FKA COVD-EV3 [id number] 08/29/2023 QC-2-4- 3D / [id number] Coil Axium 3d 3.5mm X 6cm Implanted:Qt y: 1 on 09/14/2022 by Erickson Mckeon MD at [facility] Embolectomy Implants Right: Brain [employer] - EV3 FKA COVD-EV3 08/20/2023 QC-3.5- 6-3D / [id number] / Stent Nf Atlass 3.0x21mm No Tip - [id number] - [id number] Implanted:Qt y: 1 on 09/14/2022 by Erickson Mckeon MD at [facility] Peripheral Vasc Bare Metal Stents Right: Cerebrum [facility] [id number] 03/29/2026 [id number] / [id number] / System Perclose Prostyle Suture Medicated - [id number] - [id number] Implanted:Qt y: 1 on 09/07/2022 at [facility] Vascular Closure Devices Right: Groin [employer] [facility] [id number] 05/03/2024 46943-7 3 / [id number] / F8 System Perclose Prostyle Suture Medicated - [id number] - [id number] Implanted:Qt y: 1 on 09/14/2022 by Erickson Mckeon MD at [facility] Vascular Closure Devices Right: Groin [employer] [facility] [id number] 05/03/2024 22363-1 / System Perclose Prostyle Suture Medicated - [id number] - [id number] Implanted:Qt y: 1 on 03/11/2023 by Lee Egan MD at [facility] Vascular Closure Devices Right: Groin [employer] [facility] [id number] 10/31/2024 74214-5 3 / [id number] / [id number] Procedures Procedure Name Priority Date/Time Associated Diagnosis Comments XR KNEE 4+ VIEWS BILAT Routine 04/18/2025 9:47 AM EDT Status post total right knee replacement Primary osteoarthritis of left knee COMPREHENSIVE METABOLIC PANEL Routine 03/13/2025 9:13 AM EDT Type 2 diabetes mellitus without complication, with long-term current use of insulin ([facility] V24, [facility] V28) HEMOGLOBIN A1C Routine 03/13/2025 9:13 AM EDT Type 2 diabetes mellitus without complication, with long-term current use of insulin ([facility] V24, [facility] V28) MICROALBUMIN CREATININE URINE RATIO Routine 03/13/2025 9:13 AM EDT Type 2 diabetes mellitus without complication, with long-term current use of insulin ([facility] V24, [facility] V28) LIPID PANEL WITH REFLEX TO DIRECT LDL Routine 12/12/2024 7:38 AM EDT Type 2 diabetes mellitus without complication, with long-term current use of insulin ([facility] V24, [facility] V28) COLONOSCOPY Routine 11/29/2024 8:46 AM EDT Personal history of colon polyps, unspecified BD BONE DENSITY DXA APPENDICULAR SKELETON Routine 07/10/2024 11:24 AM EST Asymptomatic menopausal state DEPRESSION SCREENING Routine 02/17/2024 FALLS RISK ASSESSMENT Routine 02/17/2024 from Last 3 Months or Most Recently Relevant to Health Maintenance Results * XR Knee 4+ Views bilat (04/18/2025 9:47 AM EDT) Anatomical Region Laterality Modality Lower Extremities, Knee Bilateral Computed Radiography Narrative 04/19/2025 11:11 AM EDT 3 views weightbearing bilateral knees obtained today including AP, lateral, sunrise were reviewed. Right knee x-rays show cemented posterior stabilized total knee replacement with patellar resurfacing and short cemented tibial stem. Implants appear well-fixed and well-positioned. No progressive or circumferential radiolucencies, patella tracking centrally without tilt. Chronic posterior vascular calcifications. Neutral alignment. Left knee x-rays show moderate to severe degenerative changes involving the medial compartment including near complete joint space narrowing, small marginal space, subchondral sclerosis. Moderate degenerative change involving patellofemoral compartment, and mild degenerative change involving lateral compartment. Small effusion. Chronic appearing posterior vascular calcifications. 5 degree tibial varus. Quinton Saleem MD IMG XR PROCEDURES Fin al Result * Microalbumin creatinine urine ratio (03/13/2025 9:13 AM EDT) Creatinine, Urine 35.0 mg/dL LAB CHEMISTRY METHOD 03/13/2025 11:08 AM EDT [facility] Microalb, Ur 7.7 0.0 - 29.0 mg/L LAB CHEMISTRY METHOD 03/13/2025 11:08 AM EDT [facility] Microalb/Creat Ratio 22 <30 mg/g creat LAB CHEMISTRY METHOD 03/13/2025 11:08 AM EDT [facility] Urine Urine specimen obtained by clean catch procedure / Unknown Non-blood Collection / Unknown 03/13/2025 9:13 AM EDT 03/13/2025 9:13 AM EDT Danny Dobson MD LAB URINE ORDERABLES Final Result [facility] [address] [place] [address], * (ABNORMAL) Hemoglobin A1c (03/13/2025 9:13 AM EDT) Hemoglobin A1C 7.6(H) <6.5 % LAB CHEMISTRY METHOD 03/13/2025 9:32 PM EDT [facility] Mean Bld Glu Estim. 171 mg/dL LAB CHEMISTRY METHOD 03/13/2025 9:32 PM EDT [facility] Blood Venous blood specimen / Unknown Venipuncture / Unknown 03/13/2025 9:13 AM EDT 03/13/2025 9:13 AM EDT us Danny Dobson MD LAB BLOOD ORDERABLES Final Result [facility] [address] [place] [address], [place] [phone] * Comprehensive metabolic panel (03/13/2025 9:13 AM EDT) Sodium 136 133 - 145 mmol/L LAB CHEMISTRY METHOD 03/13/2025 12:44 PM [facility] Potassium 4.4 3.5 - 5.5 mmol/L LAB CHEMISTRY METHOD 03/13/2025 12:44 PM [facility] Chloride 102 96 - 110 mmol/L LAB CHEMISTRY METHOD 03/13/2025 12:44 PM [facility] CO2 30 21 - 32 mmol/L LAB CHEMISTRY METHOD 03/13/2025 12:44 PM [facility] Anion Gap 4 3 - 11 LAB CHEMISTRY METHOD 03/13/2025 12:44 PM [facility] Glucose 85 70 - 100 mg/dL LAB CHEMISTRY METHOD 03/13/2025 12:44 PM [facility] BUN 16 5 - 25 mg/dL LAB CHEMISTRY METHOD 03/13/2025 12:44 PM [facility] Creatinine 0.62 0.50 - 1.10 mg/dL LAB CHEMISTRY METHOD 03/13/2025 12:44 PM [facility] eGFR 91 >=60 mL/min/1. 73m2 LAB CHEMISTRY METHOD 03/13/2025 12:44 PM [facility] Comment:Calculation based on the Chronic Kidney Disease Epidemiology Collaboration (CKD-EPI) equation refit without adjustment for race. BUN/Creatinine Ratio 25.8 LAB CHEMISTRY METHOD 03/13/2025 12:44 PM [facility] Calcium 9.3 8.5 - 10.5 mg/dL LAB CHEMISTRY METHOD 03/13/2025 12:44 PM [facility] AST (SGOT) 19 10 - 42 unit/L LAB CHEMISTRY METHOD 03/13/2025 12:44 PM [facility] ALT (SGPT) 20 10 - 60 unit/L LAB CHEMISTRY METHOD 03/13/2025 12:44 PM [facility] Alkaline Phosphatase 69 42 - 121 unit/L LAB CHEMISTRY METHOD 03/13/2025 12:44 PM [facility] Total Protein 7.0 6.0 - 8.0 g/dL LAB CHEMISTRY METHOD 03/13/2025 12:44 PM [facility] Albumin 4.3 3.2 - 5.0 g/dL LAB CHEMISTRY METHOD 03/13/2025 12:44 PM [facility] Total Bilirubin 0.8 0.0 - 1.4 mg/dL LAB CHEMISTRY METHOD 03/13/2025 12:44 PM [facility] Blood Venous blood specimen / Unknown Venipuncture / Unknown 03/13/2025 9:13 AM EDT 03/13/2025 9:13 AM EDT us Danny Dobson MD LAB BLOOD ORDERABLES Final Result [facility] [address] [place] [address], * Lipid panel with reflex to direct LDL (12/12/2024 7:38 AM EDT) Cholesterol 154 0 - 200 mg/dL LAB CHEMISTRY METHOD 12/12/2024 11:07 AM [facility] Triglycerides 140 0 - 150 mg/dL LAB CHEMISTRY METHOD 12/12/2024 11:07 AM [facility] HDL 55 >=40 mg/dL LAB CHEMISTRY METHOD 12/12/2024 11:07 AM EDT [facility] LDL Calculated 71 0 - 100 mg/dL LAB CHEMISTRY METHOD 12/12/2024 11:07 AM EDT [facility] VLDL Cholesterol Aiden 28 mg/dL LAB CHEMISTRY METHOD 12/12/2024 11:07 AM EDT [facility] Non HDL Chol. (LDL+VLDL) 99 <145 mg/dL LAB CHEMISTRY METHOD 12/12/2024 11:07 AM EDT [facility] Chol/HDL Ratio 2.8 0.0 - 4.4 LAB CHEMISTRY METHOD 12/12/2024 11:07 AM EDT [facility] Blood Venous blood specimen / Unknown Venipuncture / Unknown 12/12/2024 7:38 AM EDT 12/12/2024 7:38 AM EDT us Danny Dobson MD LAB BLOOD ORDERABLES Final Result [facility] [address] [place] [address], [place] [phone] * COLONOSCOPY Anesthesia - MAC; [facility] ENDOSCOPY (11/29/2024 8:46 AM EDT) Anatomical Region Laterality Modality Endoscopy 11/29/2024 8:23 AM EDT Impressions 11/29/2024 8:51 AM EDT - Two 5 to 7 mm polyps in the transverse colon, removed with a cold snare. Resected and retrieved. - One 15 mm polyp in the cecum, removed with a hot snare. Resected and retrieved. Injected. Clips (MR conditional) were placed. Clip motor builder winder: [employer]. - Diverticulosis in the sigmoid colon. - Internal hemorrhoids. Recommendation: - Await pathology results. - Repeat colonoscopy is recommended. The colonoscopy date will be determined after pathology results from today's exam become available for review. Narrative 11/29/2024 8:[address] [facility] GI Patient Name: Kalyn Heard Procedure Date: [...] verified by the physician, the nurse, the production designer and the transport technician in the pre-procedure area in the [...] clips were successfully placed (MR conditional). Clip motor builder winder: [employer]. There was no bleeding at the end of the procedure. Estimated blood loss was minimal. Scattered small-mouthed diverticula were found in the sigmoid colon. Internal hemorrhoids were found during retroflexion. The hemorrhoids were Grade I (internal hemorrhoids that do not prolapse). Procedure Code(s): --- Professional --- 34051, Colonoscopy, flexible; with removal of tumor(s), polyp(s), or other lesion(s) by snare technique [id number], Colonoscopy, flexible; with directed submucosal injection(s), any substance Diagnosis Code(s): --- Professional --- D12.3, Benign neoplasm of transverse colon (hepatic flexure or splenic flexure) D12.0, Benign neoplasm of cecum CPT copyright 2020 [employer]. All rights reserved. The codes documented in this report are preliminary and upon electronic development technician review may be revised to meet current compliance requirements. Richelle Pritchard MD 11/29/2024 8:50:59 AM This report has been signed electronically.Richelle Pritchard MD Number of Addenda: 0 Note Initiated On: 11/29/2024 8:23 AM Scope Withdrawal Time: 0 hours 12 minutes 48 seconds Scope In: 8:28:21 AM Scope Out: 8:47:17 AM Endoscopy Department at [facility] - [address] [place] [phone] Procedure Note Richelle Pritchard MD - 11/29/2024 [facility] GI Patient Name: Kalyn Heard Procedure Date: [...] the physician, the nurse, theanesthetist and the transport technician in the pre-procedure area in the [...] hemostatic clips weresuccessfully placed (MR conditional). Clip motor builder winder: [employer]. There was no bleeding at the end of the procedure. Estimated blood loss was minimal. Scattered small-mouthed diverticula were found inthe sigmoid colon. Internal hemorrhoids were found duringretroflexion. The hemorrhoids were Grade I (internal hemorrhoids that do not prolapse). Procedure Code(s): --- Professional --- 73265, Colonoscopy, flexible; with removal of tumor(s), polyp(s), or other lesion(s) by snare technique [id number], Colonoscopy, flexible; with directedsubmucosal injection(s), any substance Diagnosis Code(s): --- Professional --- D12.3, Benign neoplasm of transverse colon (hepatic flexure or splenic flexure) D12.0, Benign neoplasm of cecum CPT copyright 2020 [employer]. All rights reserved. The codes documented in this report are preliminary and upon electronic development technician reviewmay be revised to meet current compliance requirements. Richelle Pritchard MD 11/29/2024 8:50:59 AM This report has been signed electronically.Richelle Pritchard MD Number of Addenda: 0 Note Initiated On: 11/29/2024 8:23 AM Scope Withdrawal Time: 0 hours 12 minutes 48 seconds Scope In: 8:28:21 AM Scope Out: 8:47:17 AM Endoscopy Department at [facility] - [address] [place] [phone] IMPRESSION: - Two 5 to 7 mm polyps in the transverse colon, removed with a cold snare. Resected andretrieved. - One 15 mm polyp in the cecum, removed with a hot snare. Resected and retrieved. Injected. Clips (MR conditional) were placed. Clip motor builder winder: [employer]. - Diverticulosis in the sigmoid colon. - [...] Signed Date: 07/10/2024 20:05 ET Workstation ID: [id number] Transcribed By: Self Edit Transcribed Date: 07/10/2024 20:03 ET Narrative 07/10/2024 8:05 PM EST STUDY: DUAL ENERGY X-RAY ABSORPTIOMETRY / DXA REASON FOR EXAM: Female, 79 years old Z78.0 TECHNIQUE: Bone Mineral Density (BMD) measurements of the lumbar spine and left hip were obtained using [employer] W (S/N [id number]). COMPARISON: None FINDINGS: L1-L3 BMD: 1.389 g/cm2 [...] lumbar spineand left hip were obtained using [employer] W (S/N [id number]). COMPARISON: None FINDINGS: L1-L3 BMD: 1.389 g/cm2 [...] Signed Date: 07/10/2024 20:05 ET Workstation ID: [id number] Transcribed By: Self Edit Transcribed Date: 07/10/2024 20:03 ET Samira Tiwari MD IMG DXA PROCEDURES Fin al Result * Falls Risk Assessment (02/17/2024) [facility] Falls Risk Assessment Abstracted Historical Provider HEALTH MAINTENANCE Final Result * Depression Screening (02/17/2024) [facility] [facility] Signature Depression Screening Abstracted Historical Provider HEALTH MAINTENANCE Final Result from Last 3 Months or Most Recently Relevant to Health Maintenance Insurance [facility] Advance Directives Documents on File Type Date Recorded Patient Crystallizer Operator Expl anation Health Care Decision (hx) 04/26/2024 [...] currently active code status orders. Care Teams Tunnel Elastic Operator Zigzag Relationship Specialty Start Date End Date Danny Dobson MD [address] [place] [address] PCP - General 02/17/24
--- OUTSIDE RECORDS SUMMARY | 2025-06-03 15:05 | XMS_ITS | Encounter Summary ---
Author Organization [facility] Address [address] [place] [address] Care Team Providers Care Casino Floor Runner Name Role Phone Danny Dobson MD Primary Care Provider Reason for Visit * Reason Onset Date Comments Fitting for DME 05/27/2025 Encounter Details Date Type Department Care Team ([facility] st Contact Info) Description 05/27/[address] [facility] [address] [place] [address] Danny Dobson MD [address] [place] [address] Social History Tobacco Use Types Packs/Day Years [...] do you feel lonely or isolated from ose around you? Never 03/14/2025 Food Risk [...] for your loved ones. For example, child caregiver or elderly care for an [...] as of this encounter Progress Notes * Chris Bonilla MA - 05/29/2025 8:45 AM EST Orders scanned in and efaxed to [facility]. * Chris Bonilla MA - 05/27/2025 4:36 PM EST DWO from [facility] received, completed and to SB for sig documented in this encounter Plan of Treatment Upcoming Encounters Date Type Department Care Team (Late st Contact Info) Description 06/12/2025 1:00 PM EST Office Visit Orthopedic Surgery - [place] [address] [phone] Cesar Le, DPJesus [address] [address] 07/24/2025 9:45 AM EST Office Visit Adult [address] [phone] Danny Dobson MD [address] [place] [address] 03/26/2026 10:00 AM EDT Office Visit [address] [phone] Danny Dobson MD [address] [place] [address] documented as of this encounter Goals Goal [...] documented as of this encounter Care Teams Casino Floor Runner Relationship Specialty Start Date End Date Danny Dobson MD [address] [place] [address] PCP - General 02/17/24 documented as of this encounter
== END 2025-06-03 10:10 | disposition home or self-care (01) ==
LOC: HO.HOSX 10:09
PROVIDERS: PCP Family Medicine; Referring Provider Physical Medicine & Rehabilitation; Visit Provider Physician Assistant
DX: M54.16 Radiculopathy, lumbar region (principal); M48.062 Spinal stenosis, lumbar region with neurogenic claudication
CPT/HCPCS: 72110; 99202

== ENCOUNTER → 2025-06-03 11:28 | Outpatient (BNV) | payer MEDICARE, SELFPAY | PROVIDERS: PCP Family Medicine; Referring Provider Physical Medicine & Rehabilitation; Visit Provider Radiology Diagnostic Radiology | DX: M47.27 Other spondylosis with radiculopathy, lumbosacral region (principal) | CPT/HCPCS: 72110 ==